=== PATIENT | female | born 1940 ===

== ENCOUNTER 2017-03-24 11:46 | Day surgery (SDC) | payer MEDICARE, OTHER ==
[2017-03-23 08:16] VITALS: BMI 44.6
[2017-03-24] MEDS ORDERED: HYDROmorphone 0.5 mg/0.5 ml ISec IVP PRN (13:07)
[2017-03-24] MEDS ORDERED: Lactated Ringer's 1,000 ML IV SCH (13:15)
[2017-03-24] MEDS ORDERED: Lidocaine 2% Jelly (Uro-Jet) ONE (13:20)
[2017-03-24] MEDS ORDERED: cefTRIAXone IV 1 gm in Dextros 50 ML IVPB ONE (13:20)
[2017-03-24] MEDS ORDERED: Lactated Ringer's 1,000 ML IV ONE (13:20)
[2017-03-24] MEDS ORDERED: Propofol 10 mg/ml Inj (20 ML) ONE (13:22)
--- NOTE | 2017-03-24 14:05 | OP ---
PROCEDURE DATE: 03/24/2017 PREOPERATIVE DIAGNOSES: Urinary incontinence, frequency, urgency. POSTOPERATIVE DIAGNOSES: Urinary incontinence, frequency, urgency and cystocele. PROCEDURES: Cystoscopy only and exam under anesthesia. SURGEON: Gonzalo Owens MD COMPLICATIONS: There were no complications. FINDINGS: Basically, the patient has a moderate cystocele. The bladder mucosa is relatively within normal limits. INDICATIONS: See history and physical for further details. A very pleasant lady here for the above testing. FINDINGS: ____ the patient had a cystocele. When I inserted the cystoscope, we drained out about 12 5 mL of urine with a slight odor. We sent it off for culture. No gross hematuria. Ureteral orifices are normal. The mucosa is relatively normal. Pictures were t aken and saved. There is some debris within the bladder. The cystocele is noted. No other pelvic o r rectal masses noted. DESCRIPTION OF PROCEDURE: After obtaining informed consent, the patient placed on the table, routine monitors placed, timeouts were called to confirm the patient and positioning. Cystoscope via the urethra. We emptied the bladder and we got about 125-150 mL of clear urine. Procedure continues. Cystoscope. The bladder was inspected carefully with 30 and 70 degree lenses. Ureteral orifices show clear efflux. There is a mild amount of debris. No bladder masses are seen. The patient tolerated the procedure well without complication. Pelvic exam shows a cystocele but otherwise unremarkable. Gonzalo Owens MD cc: [id number] TT: 03/24/2017 14:04:51 ok
--- NOTE | 2017-03-24 14:15 | HP ---
REASON FOR ADMISSION: Incontinence and frequency. HISTORY OF PRESENT ILLNESS A very pleasant lady, 75-year-old. She had back surgery. She said taylor craft that she had no problems with her voiding. (See below because I have discussed this with the patient.) She comes to me after being in a fpc with a lot of difficulty at the fpc and in a v sonny depressed sort of position. We waited. She was discharged from the fpc at this point. She was in I think [facility], but now she went home and she is here today for further diagnostic studies. I have al so had a chance to speak to her doctor, Dr. Castillo. PAST MEDICAL AND SURGICAL HISTORY: No history of an SC or CVA, but she had recent back surgery. GYNECOLOGIC HISTORY: Otherwise unremarkable from a urology standpoint. PHYSICAL EXAMINATION: GENERAL: Well-nourished female in no apparent distress. VITAL SIGNS: Within normal limits. ABDOMEN: Overall soft, nontender. No flank masses. PELVIC: Deferred ____ mention that she has a moderate cystocele. RECTAL: There are no rectal masses. LABORATORIES: See chart. DIAGNOSES: Frequency, urgency, incontinence. We discussed options. We are going to do a cystoscopy today. I tried discussing with the patient locations, etc., in fact doing it in the office. Shay flores, this was not amenable for the patient. PLAN: As follows: We are going to bring her to the operating room. We are going to do a cystoscopy and then further plans will follow. I discussed options with the patient. Gonzalo Owens MD cc: [phone] TT: 03/24/2017 14:14:38 tn
[2017-03-24 14:49] VITALS: RESP 14; TEMP 98.2; O2SAT 100
[2017-03-24 17:47] VITALS: BP 118/74; PULSE 69
== END 2017-03-24 16:25 | disposition home or self-care (01) ==
LOC: C.SDS 11:46
PROVIDERS: ATTEND Urology
DX: N39.41 Urge incontinence (principal); N81.10 Cystocele, unspecified
CPT/HCPCS: 52000; 82948; 87086; J0696; J7120

== ENCOUNTER 2018-02-23 01:32 | Inpatient (IN) | payer MEDICARE, OTHER ==
[2018-02-23 01:32] VITALS: BMI 44.6
[2018-02-23] MEDS ORDERED: Morphine 4 MG/ML VIAL ONE ×2 (01:49→03:07)
[2018-02-23] MEDS ORDERED: Sodium Chloride 0.9% 1,000 ML ONE (01:53)
[2018-02-23] MEDS ORDERED: ceFAZolin IV 1 gm in Dextrose 1 GM/50 ML BAG IVPB ONE (02:00)
[2018-02-23] MEDS ORDERED: Midazolam 2 MG/2 ML VIAL ONE (02:02)
[2018-02-23 02:06] LABS: BASO # 0.1 K/uL (0.0-0.2); BASO % 1.1 % (0.0-2.0); EOS # 0.4 K/uL (0.0-0.7); EOS % 3.6 % (0.0-4.0); HEMOGLOBIN 12.2 g/dL (11.0-16.0); LYMPH % 24.9 % (20.0-40.0); MEAN CELL VOLUME 82.8 fL (81.0-99.0); MEAN CORPUSCULAR HEMOGLOBIN 27.3 pg (27.0-31.0); MEAN CORPUSCULAR HGB CONC 32.9 g/dL (33.0-37.0); MEAN PLATELET VOLUME 8.9 fL (7.2-11.7); MONO # 0.8 K/uL (0.0-0.8); NEUT # 7.5 K/uL (1.8-7.0); NEUT % 63.4 % (50.0-75.0); RBC 4.47 Mil/uL (3.80-5.20); RED CELL DISTRIBUTION WIDTH 14.1 % (11.5-14.5); WHITE BLOOD COUNT 11.9 K/uL (4.8-10.8)
[2018-02-23] MEDS ORDERED: Midazolam 2 MG/2 ML VIAL IVP ONE ×2 (02:14→11:45)
[2018-02-23 02:15] LABS: INR 0.9; PROTHROMBIN TIME 10.2 SECONDS (9.7-12.2)
[2018-02-23] MEDS ORDERED: ceFAZolin 1 GM in Sodium Chloride 0.9% 100 ML IVPB ONE (02:15)
--- NOTE | 2018-02-23 02:16 | C.PDOC ---
History Of Present Illness 77 y/o female brought in by ambulance for evaluation of ankle injury s/p fall tonight. Patient states she slipped and fell, injuring the right ankle and sustaining a laceration. There was no head injury or LOC. Patient denies any chest pain, SOB, or dizziness prior to fall. No changes in sensation. PMD: Andrew Castillo Time Seen by Provider: 02/23/18 02:14 Chief Complaint (Nursing): Lower Extremity Problem/Injury History Per: Patient History/Exam Limitations: no limitations Onset/Duration Of Symptoms: Mins Current Symptoms Are (Timing): Still Present - Ankle/Foot Description Of Injury: Fell, Laceration Past Medical History Reviewed: Historical Data, Nursing Documentation, Vital Signs Vital Signs: Last Vital Signs Temp 97.7 F 02/23/18 01:41 Pulse 83 02/23/18 03:41 Resp 20 02/23/18 03:41 BP 151/69 H 02/23/18 03:41 Pulse Ox 98 02/23/18 05:41 - Medical History PMH: Anemia, Anxiety, Asthma, Back Problems, CHF, Diabetes, HTN, Peripheral Edema, Rheumatoid Arthritis Denies: Chronic Kidney Disease Surgical History: Back Surgery - [facility] Procedures CONTINUOUS INVASIVE MECHANICAL VENTILATION <96 CONSEC HRS (06/16/15) RELEASE LUMBAR SPINAL CORD, OPEN APPROACH (12/01/16) RT & LT HEART ANGIOCARD (06/16/15) RT/LEFT HEART CARD CATH (06/16/15) TRANSFUSE NONAUT RED BLOOD CELLS IN PERIPH VEIN, PERC (12/01/16) Family History: States: Unknown Family Hx - Social History Hx Tobacco Use: No Hx Alcohol Use: No Hx Substance Use: No - Immunization History Hx Tetanus Toxoid Vaccination: Yes Hx Influenza Vaccination: Yes Hx Pneumococcal Vaccination: Yes Review Of Systems Except As Marked, All Systems Reviewed And Found Negative. Cardiovascular: Negative for: Chest Pain Respiratory: Negative for: Shortness of Breath Musculoskeletal: Positive for: Foot Pain (right ankle pain) Skin: Positive for: Lesions (to ankle) Neurological: Negative for: Weakness, Numbness, Dizziness Physical Exam - Physical Exam Appears: Non-toxic, No Acute Distress Skin: Warm, Dry, No Rash Head: Atraumatic, Normacephalic Eye(s): bilateral: Normal Inspection, PERRL, EOMI Nose: Normal Oral Mucosa: Moist Neck: Normal ROM, No Midline Cervical Tenderness, Supple Chest: Symmetrical Cardiovascular: Rhythm Regular, No Murmur Respiratory: Normal Breath Sounds, No Accessory Muscle Use Extremity: Capillary Refill (< 2 sec), Deformity (to right ankle), Other (4.5 cm laceration to medial aspect of right ankle) Pulses: Left Dorsalis Pedis: Normal, Right Dorsalis Pedis: Normal Neurological/Psych: Oriented x3, Normal Speech, Normal Motor, Normal Sensation, No Other (focal deficits) ED Course And Treatment - Laboratory Results Result Diagrams: 02/23/18 02:00 02/23/18 02:00 ECG: Interpreted By Me, Viewed By Me ECG Rhythm: Sinus Rhythm ECG Interpretation: Normal, No Acute Changes Interpretation Of ECG: Sinus rhythm with PAC. Normal tracings. Rate From EC O2 Sat by Pulse Oximetry: 98 (RA) Pulse Ox Interpretation: Normal Medical Decision Making Medical Decision Making: Time: 01:52 Initial Plan: * Labs * EKG * X-ray right ankle * Chest x-ray * NSS IV fluids * Morphine 4 mg IV * Ancef 1 gm IVPB * Versed 2 mg IV 5:[address] Solorio for ortho consult Disposition Discussed With DrRyan: Brandt Laurent Doctor Will See Patient In The: Hospital Counseled Patient/Family Regarding: Diagnosis - Disposition Disposition: HOSPITALIZED Disposition Time: 05:36 Condition: STABLE Forms: [facility] (Maltese) - POA Present On Arrival: Falls Or Trauma Location Of Wound: Right ankle medially x7 cm. - Clinical Impression Clinical Impression: Open fracture of right ankle - Scribe Statement The provider has reviewed the documentation as recorded by the Scribe (Nicolette Weiner) Provider Attestation: All medical record entries made by the Scribe were at my direction and personally dictated by me. I have reviewed the chart and agree that the record accurately reflects my personal performance of the history, physical exam, medical decision making, and the department course for this patient. I have also personally directed, reviewed, and agree with the discharge instructions and disposition.
[2018-02-23 02:19] LABS: ALT/SGPT 17 U/L (9-52); AST/SGOT 30 U/L (14-36); BLOOD UREA NITROGEN 16 mg/dL (7-17); CALCIUM 9.1 mg/dl (8.6-10.4); GFR AFRICAN-AMERICAN > 60; GFR NON-AFRICAN AMERICAN > 60
[2018-02-23] MEDS ORDERED: Sodium Chloride 0.9% 1,000 ML IV ONE (02:27)
[2018-02-23] MEDS ORDERED: Tdap Vaccine 0.5 ml Vial (10-64 yrs) IM ONE ×2 (05:14→05:25)
[2018-02-23] MEDS ORDERED: Dextrose 50% SYRINGE Inj (50 ml) IV PRN (06:22)
[2018-02-23] MEDS ORDERED: Morphine 4 MG/ML VIAL IV PRN (06:22)
[2018-02-23] MEDS ORDERED: Glucagon Recombinant 1 mg Inj IM PRN (06:22)
[2018-02-23] MEDS ORDERED: Sodium Chloride 0.45% 1,000 ML IV ONE (06:24)
--- NOTE | 2018-02-23 06:26 | CP.PCM.HP ---
<DerekDaisy ClaudioRyan - Last Filed: 02/23/18 06:52> History of Present Illness - History of Present Illness History of Present Illness: HPI: 77 year old female with past medical history of HTN, aortic stenosis, DM, spinal stenosis presents to the ER s/p fall. Patient states she was getting out of the bathroom when she slipped and fell onto her ankle. She states she saw blood everywhere and use her life alert to call for help. Patient currently denies chest pain, shortness of breath, chills, abdominal pain, nausea , or vomiting. Patient states she recently had spinal surgery which has not helped her back pain and she states due to the surgery she is currently incontinent at night. PMD: Donte Past Medical History: HTN (pulmonary HTN); aortic stenosis; spinal stenosis; Chronic exertional dyspnea;urinary incontinence; DM Past Surgical History: spinal surgery 2017 Medications: patient does not know medications Allergies: NKDA Social History: lives alone (son lives in [place]); denies smoking, illicit drug use and alcohol Present on Admission - Present on Admission Any Indicators Present on Admission: No Review of Systems - Constitutional Constitutional: absent: Chills, Fever, Headache - Cardiovascular Cardiovascular: absent: Chest Pain, Dyspnea, Leg Edema, Palpitations - Gastrointestinal Gastrointestinal: absent: Constipation, Diarrhea, Nausea, Vomiting - Genitourinary Genitourinary: Urinary Incontinence. absent: Dysuria - Musculoskeletal Musculoskeletal: Other (leg pain s/p fall) - Neurological Neurological: absent: Dizziness, Numbness, Headaches Past Patient History - Infectious Disease Hx of Infectious Diseases: None - Past Medical History & Family History Past Medical History?: Yes - Past Social History Smoking Status: Never Smoked - CARDIAC Hx Congestive Heart Failure: Yes Hx Hypertension: Yes Hx Peripheral Edema: Yes - PULMONARY Hx Asthma: Yes - NEUROLOGICAL Hx Neurological Disorder: Yes Other/Comment: DIABETIC NEUROPATHY, INTRERVERTREBRAL DISC DISEASE - HEENT Hx HEENT Problems: No - RENAL Hx Chronic Kidney Disease: No - ENDOCRINE/METABOLIC Hx Endocrine Disorders: Yes Hx Diabetes Mellitus Type 2: Yes - HEMATOLOGICAL/ONCOLOGICAL Hx Anemia: Yes - INTEGUMENTARY Hx Dermatological Problems: No - MUSCULOSKELETAL/RHEUMATOLOGICAL Hx Rheumatoid Arthritis: Yes - GASTROINTESTINAL Hx Gastrointestinal Disorders: No - GENITOURINARY/GYNECOLOGICAL Hx Genitourinary Disorders: Yes Hx Hematuria: Yes - PSYCHIATRIC Hx Anxiety: Yes Hx Substance Use: No - SURGICAL HISTORY Hx Surgeries: Yes Hx Cardiac Catheterization: Yes Other/Comment: SPINAL SURGERY(lumbar) - ANESTHESIA Hx Anesthesia: Yes Hx Anesthesia Reactions: No Meds Allergies/Adverse Reactions: Allergies Allergy/AdvReac Type Severity Reaction Status Date / Time No Known Allergies Allergy Verified 01/07/16 09:41 Physical Exam - Constitutional Appears: In Acute Distress - Head Exam Head Exam: ATRAUMATIC, NORMAL INSPECTION - Eye Exam Eye Exam: EOMI, Normal appearance - ENT Exam ENT Exam: Mucous Membranes Moist - Respiratory Exam Respiratory Exam: Clear to Auscultation Bilateral, NORMAL BREATHING PATTERN - Cardiovascular Exam Cardiovascular Exam: REGULAR RHYTHM, RRR, +S1, +S2, Systolic Murmur. absent: JVD - GI/Abdominal Exam GI & Abdominal Exam: Normal Bowel Sounds, Soft. absent: Tenderness Additional comments: obese - Extremities Exam Additional comments: Right LE cast - Neurological Exam Neurological exam: Alert, Oriented x3 Results - Vital Signs Recent Vital Signs: Last Vital Signs Temp 97.6 F 02/23/18 06:00 Pulse 90 02/23/18 06:00 Resp 16 02/23/18 06:00 BP 155/69 H 02/23/18 06:00 Pulse Ox 98 02/23/18 06:00 - Labs Result Diagrams: 02/23/18 02:00 02/23/18 02:00 Labs: Laboratory Results - last 24 hr 02/23/18 02/23/18 02/23/18 01:42 01:52 02:00 WBC 11.9 H RBC 4.47 Hgb 12.2 D Hct 37.0 MCV 82.8 MCH 27.3 MCHC 32.9 L RDW 14.1 Plt Count 357 MPV 8.9 Neut % (Auto) 63.4 Lymph % (Auto) 24.9 Haralson % (Auto) 7.0 Eos % (Auto) 3.6 Baso % (Auto) 1.1 Neut # (Auto) 7.5 H Lymph # (Auto) 3.0 Haralson # (Auto) 0.8 Eos # (Auto) 0.4 Baso # (Auto) 0.1 PT 10.2 INR 0.9 APTT 32 Sodium Potassium Chloride Carbon Dioxide Anion Gap BUN Creatinine Est GFR ( Amer) Est GFR (Non-Af Amer) POC Glucose (mg/dL) 132 H Random Glucose Calcium Total Bilirubin AST ALT Alkaline Phosphatase Total Protein Albumin Globulin Albumin/Globulin Ratio Blood Type Antibody Screen 02/23/18 02/23/18 02:00 02:00 WBC RBC Hgb Hct MCV MCH MCHC RDW Plt Count MPV Neut % (Auto) Lymph % (Auto) Haralson % (Auto) Eos % (Auto) Baso % (Auto) Neut # (Auto) Lymph # (Auto) Har[place]on # (Auto) Eos # (Auto) Baso # (Auto) PT INR APTT Sodium 141 Potassium 4.6 Chloride 105 Carbon Dioxide 24 Anion Gap 17 BUN 16 Creatinine 0.6 L Est GFR ( Amer) > 60 Est GFR (Non-Af Amer) > 60 POC Glucose (mg/dL) Random Glucose 126 H Calcium 9.1 Total Bilirubin 0.8 AST 30 ALT 17 Alkaline Phosphatase 89 Total Protein 7.8 Albumin 4.0 Globulin 3.8 Albumin/Globulin Ratio 1.0 Blood Type O POSITIVE Antibody Screen Negative Assessment & Plan - Assessment and Plan (Free Text) Assessment: 1.) Right Ankle open fracture - Ortho Consult: Dr. Solorio --> help appreciated - Patient needs acute surgery - due to patient's chronic medical conditions such as exertional dyspnea, aortic stenosis and pulmonary HTN patient is a moderate to high risk. - NPO - Morphine 1mg q3h prn - 1/2 NS @70cc/hr - Cefazolin 1gm given in the ER - f/u official reports: LE CT - f/u official report Ankle Xray - Chest Xray f/u official report 2.) History of DM - ISS - Accuchecks - Hypoglycemia protocol - f/u A1c 3.) Aortic Stenosis - ECHO (12/02/2016): left ventricular ejection fraction within the normal range. Moderate valvular aortic stenosis. Mild to moderate tricuspid regurgitation. - f/u ECHO - Cardio Consult: Dr. Wu --> help appreciated - Spoke with Dr. Wu and stated repeat ECHO can be completed as routine 4.) HTN - Confirm home medications - Monitor Case discussed with Dr. Anastasiia Reed PGY-1 <Brandt Laurent P - Last Filed: 02/26/18 06:33> Results - Vital Signs Recent Vital Signs: Last Vital Signs Temp 98.1 F 02/26/18 04:20 Pulse 84 02/26/18 04:20 Resp 20 02/26/18 04:20 BP 148/79 02/26/18 04:20 Pulse Ox 95 02/26/18 04:20 - Labs Result Diagrams: 02/25/18 07:10 02/25/18 07:10 Labs: Laboratory Results - last 24 hr 02/25/18 02/25/18 02/25/18 06:34 07:10 07:10 WBC 10.5 RBC 3.54 L Hgb 9.9 L Hct 29.1 L MCV 82.2 MCH 28.0 MCHC 34.1 RDW 13.7 Plt Count 236 MPV 8.7 Neut % (Auto) 72.6 Lymph % (Auto) 14.4 L Haralson % (Auto) 11.8 H Eos % (Auto) 0.6 Baso % (Auto) 0.6 Neut # (Auto) 7.6 H Lymph # (Auto) 1.5 Haralson # (Auto) 1.2 H Eos # (Auto) 0.1 Baso # (Auto) 0.1 Sodium 138 Potassium 3.2 L Chloride 103 Carbon Dioxide 28 Anion Gap 11 BUN 9 Creatinine 0.7 Est GFR ( Amer) > 60 Est GFR (Non-Af Amer) > 60 POC Glucose (mg/dL) 127 H Random Glucose 132 H Calcium 8.3 L Phosphorus 3.2 Magnesium 1.9 Total Bilirubin 1.7 H AST 24 ALT 15 Alkaline Phosphatase 76 Total Protein 6.4 Albumin 3.1 L Globulin 3.3 Albumin/Globulin Ratio 0.9 L Carcinoembryonic Ag 0.6 02/25/18 02/25/18 02/25/18 11:15 16:25 21:37 WBC RBC Hgb Hct MCV MCH MCHC RDW Plt Count MPV Neut % (Auto) Lymph % (Auto) [place]on % (Auto) Eos % (Auto) Baso % (Auto) Neut # (Auto) Lymph # (Auto) Haralson # (Auto) Eos # (Auto) Baso # (Auto) Sodium Potassium Chloride Carbon Dioxide Anion Gap BUN Creatinine Est GFR ( Amer) Est GFR (Non-Af Amer) POC Glucose (mg/dL) 152 H 144 H 158 H Random Glucose Calcium Phosphorus Magnesium Total Bilirubin AST ALT Alkaline Phosphatase Total Protein Albumin Globulin Albumin/Globulin Ratio Carcinoembryonic Ag Attending/Attestation - Attestation I have personally seen and examined this patient.: Yes I have fully participated in the care of the patient.: Yes I have reviewed all pertinent clinical information: Yes Notes (Text): See note on the same day
--- NOTE | 2018-02-23 07:15 | CP.PCM.PN ---
Subjective - Date & Time of Evaluation Date of Evaluation: 02/23/18 Time of Evaluation: 07:06 - Subjective Subjective: Assessment * Open ankle fracture, with air in soft tissues, reduced in ER, no neurovascular deficit, due to mechanical fall * H/o valve area 1.1cmsq, 11/2016 echo, with pulm htn, clinically exertional dyspnea * H/o DM on OHA * Chronic low back pain with surg last yr, with clinical symptoms of spinal stenosis in lumbar region * EKG 1deg HB, with prolonged QTc. Plan * Moderate to high risk for perioperative CV event with GA, spinal may be preferred, but prolonged surg, large volume shifts may cause sudden changes of intravascular lowering pressure or CFH * Echo if possible prior to surg to know valvular status * Cardiology consult, Dr. Wu will be informed * NPO * Orthopedic consult * IV abx, if surg delayed will need ID consult will need to be treated as OM * hold anticoagulation due to possible surg * See orders for detail. Objective - Vital Signs/Intake and Output Vital Signs (last 24 hours): Temp Pulse Resp BP Pulse Ox 97.6 F 90 16 155/69 H 98 02/23/18 06:00 02/23/18 06:00 02/23/18 06:00 02/23/18 06:00 02/23/18 06:00 - Medications Medications: Current Medications Dextrose (Dextrose 50% Inj) 0 ml IV STAT PRN; Protocol PRN Reason: Hypoglycemia Protocol Dextrose (Glutose 15) 0 gm PO ONCE PRN; Protocol PRN Reason: Hypoglycemia Protocol Glucagon (Glucagen Diagnostic Kit) 0 mg IM STAT PRN; Protocol PRN Reason: Hypoglycemia Protocol Dextrose (Dextrose 5% In Water 1000 Ml) 1,000 mls @ 0 mls/hr IV .Q0M PRN; Protocol; Per Protocol PRN Reason: Hypoglycemia Protocol Sodium Chloride (Sodium Chloride 0.45%) 1,000 mls @ 70 mls/hr IV .[id number] ONE Stop: 02/23/18 20:41 Insulin Human Regular (Novolin R) 0 unit SC ACHS GABRIELA PRN Reason: Protocol Morphine Sulfate (Morphine) 1 mg IV Q3 PRN PRN Reason: Pain, moderate (4-7) Ondansetron HCl (Zofran Inj) 4 mg IVP Q6H PRN PRN Reason: Nausea/Vomiting - Labs Labs: 02/23/18 02:00 02/23/18 02:00 PT 10.2 SECONDS (9.7-12.2) 02/23/18 01:52 INR 0.9 02/23/18 01:52 APTT 32 SECONDS (21-34) 02/23/18 01:52
[2018-02-23] MEDS: (Novolin R) Insulin Human Regular 100 units/ml vial SC SCH ×4 (08:40→22:41)
[2018-02-23] MEDS: Piperacill/Tazo 3.375gm in Dex 3.375 GM/50 ML BAG IVPB SCH ×3 (09:56→23:15)
--- NOTE | 2018-02-23 10:05 | CP.PCM.CON ---
History of Present Illness - History of Present Illness History of Present Illness: 77 y/o female brought in by ambulance for evaluation of ankle injury s/p fall tonight. Patient states she slipped and fell, injuring the right ankle and sustaining a laceration. There was no head injury or LOC. Patient denies any chest pain, SOB, or dizziness prior to fall. No changes in sensation. \ started vanco zosyn empirically For OR am - Medical History PMH: Anemia, Anxiety, Asthma, Back Problems, CHF, Diabetes, HTN, Peripheral Edema, Rheumatoid Arthritis Denies: Chronic Kidney Disease Surgical History: Back Surgery - [facility] Procedures CONTINUOUS INVASIVE MECHANICAL VENTILATION <96 CONSEC HRS (06/16/15) RELEASE LUMBAR SPINAL CORD, OPEN APPROACH (12/01/16) RT & LT HEART ANGIOCARD (06/16/15) RT/LEFT HEART CARD CATH (06/16/15) TRANSFUSE NONAUT RED BLOOD CELLS IN PERIPH VEIN, PERC (12/01/16) Review of Systems - Review of Systems All systems: reviewed and no additional remarkable complaints except - Constitutional Constitutional: As Per HPI - EENT Eyes: absent: As Per HPI, Blind Spots, Blurred Vision, Change in Vision, Decreased Night Vision, Diplopia, Discharge, Dry Eye, Exophthalmos, Floaters, Irritation, Itchy Eyes, Loss of Peripheral Vision, Pain, Photophobia, Requires Corrective Lenses, Sees Flashes, Spots in Vision, Tunnel Vision, Other Visual Disturbances, Loss of Vision, Other Ears: absent: As Per HPI, Decreased Hearing, Ear Discharge, Ear Pain, Tinnitus, Abnormal Hearing, Disequilibrium, Dizziness, Other Nose/Mouth/Throat: absent: As Per HPI, Epistaxis, Nasal Congestion, Nasal Discharge, Nasal Obstruction, Nasal Trauma, Nose Pain, Post Nasal Drip, Sinus Pain, Sinus Pressure, Bleeding Gums, Change in Voice, Dental Pain, Dry Mouth, Dysphagia, Halitosis, Hoarsness, Lip Swelling, Mouth Lesions, Mouth Pain, Odynophagia, Sore Throat, Throat Swelling, Tongue Swelling, Facial Pain, Neck Pain, Neck Mass, Other - Breasts Breasts: absent: As Per HPI, Change in Shape, Mass, Pain, Nipple Discharge, Nipple Inversion, Skin Changes, Swelling, Other - Cardiovascular Cardiovascular: absent: As Per HPI, Acrocyanosis, Chest Pain, Chest Pain at Rest , Chest Pain with Activity, Claudication, Diaphoresis, Dyspnea, Dyspnea on Exertion, Edema, Irregular Heart Rhythm, Pain Radiating to Arm/Neck/Jaw, Leg Edema, Leg Ulcers, Lightheadedness, Orthopnea, Palpitations, Paroxysmal Nocturnal Dyspnea, Pedal Edema, Radiating Pain, Rapid Heart Rate, Slow Heart Rate, Syncope, Other - Respiratory Respiratory: absent: As Per HPI, Cough, Dyspnea, Hemoptysis, Dyspnea on Exertion , Wheezing, Snoring, Stridor, Pain on Inspiration, Chest Congestion, Excessive Mucous Production, Change in Mucous Color, Pain with Coughing, Other - Gastrointestinal Gastrointestinal: absent: As Per HPI, Abdominal Pain, Belching, Bloating, Change in Bowel Habits, Change in Stool Character, Coffee Ground Emesis, Constipation, Cramping, Diarrhea, Dyspepsia, Dysphagia, Early Satiety, Excessive Flatus, Fecal Incontinence, Heartburn, Hematemesis, Hematochezia, Loose Stools, Melena, Nausea, Odynophagia, Temesmus, Vomiting, Other - Genitourinary Genitourinary: absent: As Per HPI, Change in Urinary Stream, Difficulty Urinating, Dysuria, Flank Pain, Hematuria, Pyuria, Nocturia, Urinary Incontinence, Urinary Frequency, Urinary Hesitance, Urinary Urgency, Voiding Freq/Small Amts, Freq UTI, Hx Renal/Bladder Calculi, Hx /Renal Surgery, Bladder Distension, Other - Reproductive: Female Reproductive:Female: absent: As Per HPI, Amenorrhea, Amenorrhea/ Control, Currently Menstual, Cycle <21 Days, Cycle >35 Days, Cycle Variable, Menses 1-7 Days, Menses >/= 8 Days, Menses Variable, Cycle > 4 Weeks Between, No Menses for 6 Months, Heavy Menses, Light Menses, Normal Menses, Spotting Between Cycles , S/P Hysterectomy, Menopausal, Post Menopausal, Premenarche, Abnormal Vaginal Bleeding, Dysmenorrhea, Dyspareunia, Genital Lesions, Genital Pruritis, Pelvic Pain, Prolapse Symptoms, Sexual Dysfunction, Vaginal Discharge, Vaginal Dryness , Vaginal Odor, Vaginal Pruritis, Other - Menstruation Menstruation: absent: As Per HPI, Amenorrhea, Amenorrhea/ Control, Currently Menstual, Cycle <21 Days, Cycle >35 Days, Cycle Variable, Menses 1-7 Days, Menses >/= 8 Days, Menses Variable, Cycle > 4 Weeks Between, No Menses for 6 Months, Heavy Menses, Light Menses, Normal Menses, Spotting Between Cycles , S/P Hysterectomy, Menopausal, Post Menopausal, Premenarche, Abnormal Vaginal Bleeding, Dysmenorrhea, Other - Musculoskeletal Musculoskeletal: As Per HPI - Integumentary Integumentary: As Per HPI - Neurological Neurological: absent: As Per HPI, Abnormal Gait, Abnormal Hearing, Abnormal Movements, Abnormal Speech, Behavioral Changes, Burning Sensations, Confusion, Convulsions, Disequilibrium, Dizziness, Numbness, Focal Weakness, Frequent Falls , Headaches, Lack of Coordination, Loss of Vision, Memory Loss, Paresthesias, Radicular Pain, Restless Legs, Sensory Deficit, Syncope, Tingling, Tremor, Vertigo, Weakness, Other Visual Disturbances, Other - Psychiatric Psychiatric: absent: As Per HPI, Abnormal Sleep Pattern, Anhedonia, Anxiety, Auditory Hallucinations, Behavioral Changes, Change in Appetite, Change in Libido, Confusion, Depression, Difficulty Concentrating, Hallucinations, Homicidal Ideation, Hopelessness, Irritability, Memory Loss, Mood Swings, Panic Attacks, Paranoia, Suicidal Ideation, Visual Hallucinations, Tactile Hallucinations, Other - Endocrine Endocrine: absent: As Per HPI, Change in Body Appearance, Change in Libido, Cold Intolorance, Deepening of Voice, Excessive Sweating, Fatigue, Flushing, Heat Intolorance, Increase in Ring/Shoe/Hat Size, Palpitations, Polydipsia, Polyphagia, Polyuria, Other - Hematologic/Lymphatic Hematologic: absent: As Per HPI, Easy Bleeding, Easy Bruising, Lymphadenopathy, Other Past Patient History - Infectious Disease Hx of Infectious Diseases: None - Past Medical History & Family History Past Medical History?: Yes - Past Social History Smoking Status: Never Smoked - CARDIAC Hx Congestive Heart Failure: Yes Hx Hypertension: Yes Hx Peripheral Edema: Yes - PULMONARY Hx Asthma: Yes - NEUROLOGICAL Hx Neurological Disorder: Yes Other/Comment: DIABETIC NEUROPATHY, INTRERVERTREBRAL DISC DISEASE - HEENT Hx HEENT Problems: No - RENAL Hx Chronic Kidney Disease: No - ENDOCRINE/METABOLIC Hx Endocrine Disorders: Yes Hx Diabetes Mellitus Type 2: Yes - HEMATOLOGICAL/ONCOLOGICAL Hx Anemia: Yes - INTEGUMENTARY Hx Dermatological Problems: No - MUSCULOSKELETAL/RHEUMATOLOGICAL Hx Rheumatoid Arthritis: Yes - GASTROINTESTINAL Hx Gastrointestinal Disorders: No - GENITOURINARY/GYNECOLOGICAL Hx Genitourinary Disorders: Yes Hx Hematuria: Yes - PSYCHIATRIC Hx Anxiety: Yes Hx Substance Use: No - SURGICAL HISTORY Hx Surgeries: Yes Hx Cardiac Catheterization: Yes Other/Comment: SPINAL SURGERY(lumbar) - ANESTHESIA Hx Anesthesia: Yes Hx Anesthesia Reactions: No Meds Allergies/Adverse Reactions: Allergies Allergy/AdvReac Type Severity Reaction Status Date / Time No Known Allergies Allergy Verified 01/07/16 09:41 - Medications Medications: Current Medications Albuterol/Ipratropium (Duoneb 3 Mg/0.5 Mg (3 Ml) Ud) 3 ml INH RQ6 PRN PRN Reason: Shortness of Breath Dextrose (Dextrose 50% Inj) 0 ml IV STAT PRN; Protocol PRN Reason: Hypoglycemia Protocol Dextrose (Glutose 15) 0 gm PO ONCE PRN; Protocol PRN Reason: Hypoglycemia Protocol Docusate Sodium (Colace) 100 mg PO BID [facility] Glucagon (Glucagen Diagnostic Kit) 0 mg IM STAT PRN; Protocol PRN Reason: Hypoglycemia Protocol Heparin Sodium (Porcine) (Heparin) 5,000 units SC ONCE ONE Stop: 02/23/18 17:01 Dextrose (Dextrose 5% In Water 1000 Ml) 1,000 mls @ 0 mls/hr IV .Q0M PRN; Protocol; Per Protocol PRN Reason: Hypoglycemia Protocol Sodium Chloride (Sodium Chloride 0.45%) 1,000 mls @ 70 mls/hr IV .[id number] ONE Stop: 02/23/18 20:41 Last Admin: 02/23/18 08:30 Dose: 70 mls/hr Vancomycin/Sodium Chloride (Vancomycin 1 Gm/Ns 200 Ml) 1 gm in 200 mls @ 133.333 mls/hr IVPB Q12H [facility] PRN Reason: Protocol Stop: 02/28/18 11:01 Piperacillin Sod/Tazobactam Sod (Zosyn 3.375 Gm Iv Premix) 3.375 gm in 50 mls @ 100 mls/hr IVPB Q6H [facility] PRN Reason: Protocol Last Admin: 02/23/18 09:56 Dose: 100 mls/hr Insulin Human Regular (Novolin R) 0 unit SC ACHS [facility] PRN Reason: Protocol Last Admin: 02/23/18 08:40 Dose: Not Given Losartan Potassium (Cozaar) 50 mg PO Q12H [facility] Morphine Sulfate (Morphine) 2 mg IVP Q4 PRN PRN Reason: Pain, severe (8-10) Morphine Sulfate (Morphine) 1 mg IVP Q4 PRN PRN Reason: Pain, moderate (4-7) Ondansetron HCl (Zofran Inj) 4 mg IVP Q6H PRN PRN Reason: Nausea/Vomiting Pantoprazole Sodium (Protonix Ec Tab) 40 mg PO DAILY [facility] Pregabalin (Lyrica) 25 mg PO HS [facility] Saccharomyces Boulardii (Florastor) 250 mg PO BID [facility] Physical Exam - Constitutional Appears: Non-toxic, Chronically Ill - Head Exam Head Exam: NORMOCEPHALIC - Eye Exam Eye Exam: PERRL. absent: Scleral icterus - ENT Exam ENT Exam: Mucous Membranes Dry, Normal External Ear Exam - Neck Exam Neck exam: Negative for: Lymphadenopathy - Respiratory Exam Respiratory Exam: Decreased Breath Sounds, Clear to Auscultation Bilateral - Cardiovascular Exam Cardiovascular Exam: REGULAR RHYTHM, +S1, +S2 - GI/Abdominal Exam GI & Abdominal Exam: Diminished Bowel Sounds, Soft. absent: Tenderness - Rectal Exam Rectal Exam: Deferred - Exam Exam: NORMAL INSPECTION - Extremities Exam Extremities exam: Positive for: pedal edema, tenderness, pedal pulses present. Negative for: calf tenderness Additional comments: comminuted fx right ankle - Back Exam Back exam: absent: CVA tenderness (L), CVA tenderness (R) - Neurological Exam Neurological exam: Alert, CN II-XII Intact, Oriented x3, Reflexes Normal - Psychiatric Exam Psychiatric exam: Normal Mood - Skin Skin Exam: Dry Results - Vital Signs Recent Vital Signs: Last Vital Signs Temp 97.3 F L 02/23/18 08:01 Pulse 84 02/23/18 08:01 Resp 18 02/23/18 08:01 BP 162/81 H 02/23/18 08:01 Pulse Ox 99 02/23/18 08:01 - Labs Result Diagrams: 02/23/18 02:00 02/23/18 02:00 Labs: Laboratory Results - last 24 hr 02/23/18 02/23/18 02/23/18 01:42 01:52 02:00 WBC 11.9 H RBC 4.47 Hgb 12.2 D Hct 37.0 MCV 82.8 MCH 27.3 MCHC 32.9 L RDW 14.1 Plt Count 357 MPV 8.9 Neut % (Auto) 63.4 Lymph % (Auto) 24.9 [place] % (Auto) 7.0 Eos % (Auto) 3.6 Baso % (Auto) 1.1 Neut # (Auto) 7.5 H Lymph # (Auto) 3.0 [place] # (Auto) 0.8 Eos # (Auto) 0.4 Baso # (Auto) 0.1 PT 10.2 INR 0.9 APTT 32 Sodium Potassium Chloride Carbon Dioxide Anion Gap BUN Creatinine Est GFR ( Amer) Est GFR (Non-Af Amer) POC Glucose (mg/dL) 132 H Random Glucose Calcium Total Bilirubin AST ALT Alkaline Phosphatase Total Protein Albumin Globulin Albumin/Globulin Ratio Blood Type Antibody Screen 02/23/18 02/23/18 02/23/18 02:00 02:00 08:32 WBC RBC Hgb Hct MCV MCH MCHC RDW Plt Count MPV Neut % (Auto) Lymph % (Auto) [place] % (Auto) Eos % (Auto) Baso % (Auto) Neut # (Auto) Lymph # (Auto) [place] # (Auto) Eos # (Auto) Baso # (Auto) PT INR APTT Sodium 141 Potassium 4.6 Chloride 105 Carbon Dioxide 24 Anion Gap 17 BUN 16 Creatinine 0.6 L Est GFR ( Amer) > 60 Est GFR (Non-Af Amer) > 60 POC Glucose (mg/dL) 110 Random Glucose 126 H Calcium 9.1 Total Bilirubin 0.8 AST 30 ALT 17 Alkaline Phosphatase 89 Total Protein 7.8 Albumin 4.0 Globulin 3.8 Albumin/Globulin Ratio 1.0 Blood Type O POSITIVE Antibody Screen Negative Assessment & Plan (1) Open fracture of right ankle Status: Acute (2) Acute left lumbar radiculopathy Status: Acute (3) Acute lumbar radiculopathy Status: Acute (4) Ambulatory dysfunction Status: Acute (5) Anemia Status: Acute (6) Ankle pain Status: Acute - Assessment and Plan (Free Text) Assessment: cont iv rx perioperatively await or cultures
[2018-02-23] MEDS: Saccharomyces Boulardi 250 mg Cap PO SCH ×2 (10:13→18:30)
[2018-02-23] MEDS: Pantoprazole 40 mg EC Tab PO SCH (10:13)
--- NOTE | 2018-02-23 10:20 | CP.PCM.CON ---
<Yaron Lewis - Last Filed: 02/23/18 16:11> History of Present Illness - History of Present Illness History of Present Illness: PGY2 Cardiology Consult Note for Dr. Wu 77 year old female with past medical history of HTN, aortic stenosis, DM, spinal stenosis presents to the ER s/p fall. Patient states she was getting out of the bathroom when she slipped and fell onto her ankle. She states she saw blood everywhere and use her life alert to call for help. Patient currently denies chest pain, shortness of breath, chills, abdominal pain, nausea , or vomiting. Patient states she recently had spinal surgery which has not helped her back pain and she states due to the surgery she is currently incontinent at night. Patient was seen and examined at bedside this AM. She is s/p closed reduction with podiatry today. Due for additional surgery tomorrow 02/24. Pain is well controlled. Patient denies chest pain, SOB, or edema. 12-point review of systems is otherwise negative without any additional acute complaints. PMD: Don[place] Past Medical History: HTN (pulmonary HTN); aortic stenosis; spinal stenosis; Chronic exertional dyspnea;urinary incontinence; DM Past Surgical History: spinal surgery 2017 Medications: patient does not know medications Allergies: NKDA Social History: lives alone (son lives in [place]); denies smoking, illicit drug use and alcohol Review of Systems - Review of Systems All systems: reviewed and no additional remarkable complaints except (as stated in HPI) Past Patient History - Infectious Disease Hx of Infectious Diseases: None - Past Medical History & Family History Past Medical History?: Yes - Past Social History Smoking Status: Never Smoked - CARDIAC Hx Congestive Heart Failure: Yes Hx Hypertension: Yes Hx Peripheral Edema: Yes - PULMONARY Hx Asthma: Yes - NEUROLOGICAL Hx Neurological Disorder: Yes Other/Comment: DIABETIC NEUROPATHY, INTRERVERTREBRAL DISC DISEASE - HEENT Hx HEENT Problems: No - RENAL Hx Chronic Kidney Disease: No - ENDOCRINE/METABOLIC Hx Endocrine Disorders: Yes Hx Diabetes Mellitus Type 2: Yes - HEMATOLOGICAL/ONCOLOGICAL Hx Anemia: Yes - INTEGUMENTARY Hx Dermatological Problems: No - MUSCULOSKELETAL/RHEUMATOLOGICAL Hx Rheumatoid Arthritis: Yes - GASTROINTESTINAL Hx Gastrointestinal Disorders: No - GENITOURINARY/GYNECOLOGICAL Hx Genitourinary Disorders: Yes Hx Hematuria: Yes - PSYCHIATRIC Hx Anxiety: Yes Hx Substance Use: No - SURGICAL HISTORY Hx Surgeries: Yes Hx Cardiac Catheterization: Yes Other/Comment: SPINAL SURGERY(lumbar) - ANESTHESIA Hx Anesthesia: Yes Hx Anesthesia Reactions: No Meds Allergies/Adverse Reactions: Allergies Allergy/AdvReac Type Severity Reaction Status Date / Time No Known Allergies Allergy Verified 01/07/16 09:41 - Medications Medications: Current Medications Albuterol/Ipratropium (Duoneb 3 Mg/0.5 Mg (3 Ml) Ud) 3 ml INH RQ6 PRN PRN Reason: Shortness of Breath Dextrose (Dextrose 50% Inj) 0 ml IV STAT PRN; Protocol PRN Reason: Hypoglycemia Protocol Dextrose (Glutose 15) 0 gm PO ONCE PRN; Protocol PRN Reason: Hypoglycemia Protocol Docusate Sodium (Colace) 100 mg PO BID [facility] Last Admin: 02/23/18 10:13 Dose: 100 mg Glucagon (Glucagen Diagnostic Kit) 0 mg IM STAT PRN; Protocol PRN Reason: Hypoglycemia Protocol Heparin Sodium (Porcine) (Heparin) 5,000 units SC ONCE ONE Stop: 02/23/18 17:01 Dextrose (Dextrose 5% In Water 1000 Ml) 1,000 mls @ 0 mls/hr IV .Q0M PRN; Protocol; Per Protocol PRN Reason: Hypoglycemia Protocol Sodium Chloride (Sodium Chloride 0.45%) 1,000 mls @ 70 mls/hr IV .[id number] ONE Stop: 02/23/18 20:41 Last Admin: 02/23/18 08:30 Dose: 70 mls/hr Vancomycin/Sodium Chloride (Vancomycin 1 Gm/Ns 200 Ml) 1 gm in 200 mls @ 133.333 mls/hr IVPB Q12H [facility] PRN Reason: Protocol Stop: 02/28/18 11:01 Piperacillin Sod/Tazobactam Sod (Zosyn 3.375 Gm Iv Premix) 3.375 gm in 50 mls @ 100 mls/hr IVPB Q6H [facility] PRN Reason: Protocol Last Admin: 02/23/18 09:56 Dose: 100 mls/hr Insulin Human Regular (Novolin R) 0 unit SC ACHS [facility] PRN Reason: Protocol Last Admin: 02/23/18 08:40 Dose: Not Given Losartan Potassium (Cozaar) 50 mg PO Q12H [facility] Last Admin: 02/23/18 10:13 Dose: 50 mg Morphine Sulfate (Morphine) 2 mg IVP Q4 PRN PRN Reason: Pain, severe (8-10) Morphine Sulfate (Morphine) 1 mg IVP Q4 PRN PRN Reason: Pain, moderate (4-7) Ondansetron HCl (Zofran Inj) 4 mg IVP Q6H PRN PRN Reason: Nausea/Vomiting Pantoprazole Sodium (Protonix Ec Tab) 40 mg PO DAILY [facility] Last Admin: 02/23/18 10:13 Dose: 40 mg Pregabalin (Lyrica) 25 mg PO [facility] Saccharomyces Boulardii (Florastor) 250 mg PO BID [facility] Last Admin: 02/23/18 10:13 Dose: 250 mg Physical Exam - Additional Findings Additional findings: - Constitutional Appears: In Acute Distress - Head Exam Head Exam: ATRAUMATIC, NORMAL INSPECTION - Eye Exam Eye Exam: EOMI, Normal appearance - ENT Exam ENT Exam: Mucous Membranes Moist - Respiratory Exam Respiratory Exam: Clear to Auscultation Bilateral, NORMAL BREATHING PATTERN. absent: Rales, Rhonchi - Cardiovascular Exam Cardiovascular Exam: REGULAR RHYTHM, RRR, +S1, +S2, Systolic Murmur. absent: JVD - GI/Abdominal Exam GI & Abdominal Exam: Normal Bowel Sounds, Soft. absent: Tenderness - Extremities Exam Additional comments: Right LE cast, pedal pulses b/l - Neurological Exam Neurological exam: Alert, Oriented x3 Results - Vital Signs Recent Vital Signs: Last Vital Signs Temp 97.3 F L 02/23/18 08:01 Pulse 86 02/23/18 10:09 Resp 18 02/23/18 08:01 BP 149/78 02/23/18 10:09 Pulse Ox 99 02/23/18 08:01 - Labs Result Diagrams: 02/23/18 02:00 02/23/18 02:00 Labs: Laboratory Results - last 24 hr 02/23/18 02/23/18 02/23/18 01:42 01:52 02:00 WBC 11.9 H RBC 4.47 Hgb 12.2 D Hct 37.0 MCV 82.8 MCH 27.3 MCHC 32.9 L RDW 14.1 Plt Count 357 MPV 8.9 Neut % (Auto) 63.4 Lymph % (Auto) 24.9 [place] % (Auto) 7.0 Eos % (Auto) 3.6 Baso % (Auto) 1.1 Neut # (Auto) 7.5 H Lymph # (Auto) 3.0 [place] # (Auto) 0.8 Eos # (Auto) 0.4 Baso # (Auto) 0.1 PT 10.2 INR 0.9 APTT 32 Sodium Potassium Chloride Carbon Dioxide Anion Gap BUN Creatinine Est GFR ( Amer) Est GFR (Non-Af Amer) POC Glucose (mg/dL) 132 H Random Glucose Calcium Total Bilirubin AST ALT Alkaline Phosphatase Total Protein Albumin Globulin Albumin/Globulin Ratio Blood Type Antibody Screen 02/23/18 02/23/18 02/23/18 02:00 02:00 08:32 WBC RBC Hgb Hct MCV MCH MCHC RDW Plt Count MPV Neut % (Auto) Lymph % (Auto) [place] % (Auto) Eos % (Auto) Baso % (Auto) Neut # (Auto) Lymph # (Auto) [place] # (Auto) Eos # (Auto) Baso # (Auto) PT INR APTT Sodium 141 Potassium 4.6 Chloride 105 Carbon Dioxide 24 Anion Gap 17 BUN 16 Creatinine 0.6 L Est GFR ( Amer) > 60 Est GFR (Non-Af Amer) > 60 POC Glucose (mg/dL) 110 Random Glucose 126 H Calcium 9.1 Total Bilirubin 0.8 AST 30 ALT 17 Alkaline Phosphatase 89 Total Protein 7.8 Albumin 4.0 Globulin 3.8 Albumin/Globulin Ratio 1.0 Blood Type O POSITIVE Antibody Screen Negative Assessment & Plan - Assessment and Plan (Free Text) Assessment: Right Ankle open fracture with Air in Soft Tissue 4/3: f/u repeat Echo Patient is moderate - high risk for CV event during surgery. Aortic Stenosis with Pulmonary HTN 4/3: f/u repeat Echo Patient is moderate - high risk for CV event during surgery. Lipid Panel NORMAL Pt with dyspnea on exertion Continue Duoneb 3ml INH RQ6 PRN for shortness of breath HTN BP 149/78. Continue current management. -Continue Losartan 50mg PO q12 - Monitor Case Discussed with Dr. Bryce Lewis, PGY2 - Date & Time Date: 02/23/18 Time: 10:16 <Solo Wu - Last Filed: 02/23/18 23:46> Meds - Medications Medications: Current Medications Albuterol/Ipratropium (Duoneb 3 Mg/0.5 Mg (3 Ml) Ud) 3 ml INH RQ6 PRN PRN Reason: Shortness of Breath Dextrose (Dextrose 50% Inj) 0 ml IV STAT PRN; Protocol PRN Reason: Hypoglycemia Protocol Dextrose (Glutose 15) 0 gm PO ONCE PRN; Protocol PRN Reason: Hypoglycemia Protocol Docusate Sodium (Colace) 100 mg PO BID [facility] Last Admin: 02/23/18 18:30 Dose: Not Given Glucagon (Glucagen Diagnostic Kit) 0 mg IM STAT PRN; Protocol PRN Reason: Hypoglycemia Protocol Hydromorphone HCl (Dilaudid) 0.5 mg IVP Q4H PRN PRN Reason: Pain, severe (8-10) Dextrose (Dextrose 5% In Water 1000 Ml) 1,000 mls @ 0 mls/hr IV .Q0M PRN; Protocol; Per Protocol PRN Reason: Hypoglycemia Protocol Vancomycin/Sodium Chloride (Vancomycin 1 Gm/Ns 200 Ml) 1 gm in 200 mls @ 133.333 mls/hr IVPB Q12H [facility] PRN Reason: Protocol Stop: 02/28/18 11:01 Last Admin: 02/23/18 11:53 Dose: 133.333 mls/hr Piperacillin Sod/Tazobactam Sod (Zosyn 3.375 Gm Iv Premix) 3.375 gm in 50 mls @ 100 mls/hr IVPB Q6H [facility] PRN Reason: Protocol Last Admin: 02/23/18 23:15 Dose: 50 mls Insulin Human Regular (Novolin R) 0 unit SC ACHS [facility] PRN Reason: Protocol Last Admin: 02/23/18 22:41 Dose: Not Given Losartan Potassium (Cozaar) 50 mg PO Q12H [facility] Last Admin: 02/23/18 22:41 Dose: Not Given Morphine Sulfate (Morphine) 1 mg IVP Q4 PRN PRN Reason: Pain, moderate (4-7) Last Admin: 02/23/18 12:01 Dose: 1 mg Ondansetron HCl (Zofran Inj) 4 mg IVP Q6H PRN PRN Reason: Nausea/Vomiting Pantoprazole Sodium (Protonix Ec Tab) 40 mg PO DAILY [facility] Last Admin: 02/23/18 10:13 Dose: 40 mg Pregabalin (Lyrica) 25 mg PO HS [facility] Last Admin: 02/23/18 22:41 Dose: Not Given Saccharomyces Boulardii (Florastor) 250 mg PO BID [facility] Last Admin: 02/23/18 18:30 Dose: Not Given Results - Vital Signs Recent Vital Signs: Last Vital Signs Temp 97.3 F L 02/23/18 22:19 Pulse 83 02/23/18 23:15 Resp 16 02/23/18 23:15 BP 135/67 02/23/18 23:15 Pulse Ox 100 02/23/18 23:15 - Labs Result Diagrams: 02/23/18 02:00 02/23/18 02:00 Labs: Laboratory Results - last 24 hr 02/23/18 02/23/18 02/23/18 01:42 01:52 02:00 WBC 11.9 H RBC 4.47 Hgb 12.2 D Hct 37.0 MCV 82.8 MCH 27.3 MCHC 32.9 L RDW 14.1 Plt Count 357 MPV 8.9 Neut % (Auto) 63.4 Lymph % (Auto) 24.9 [place] % (Auto) 7.0 Eos % (Auto) 3.6 Baso % (Auto) 1.1 Neut # (Auto) 7.5 H Lymph # (Auto) 3.0 [place] # (Auto) 0.8 Eos # (Auto) 0.4 Baso # (Auto) 0.1 PT 10.2 INR 0.9 APTT 32 Sodium Potassium Chloride Carbon Dioxide Anion Gap BUN Creatinine Est GFR ( Amer) Est GFR (Non-Af Amer) POC Glucose (mg/dL) 132 H Random Glucose Hemoglobin A1c Calcium Total Bilirubin AST ALT Alkaline Phosphatase Total Protein Albumin Globulin Albumin/Globulin Ratio Triglycerides Cholesterol LDL Cholesterol Direct HDL Cholesterol Blood Type Antibody Screen 02/23/18 02/23/18 02/23/18 02:00 02:00 08:32 WBC RBC Hgb Hct MCV MCH MCHC RDW Plt Count MPV Neut % (Auto) Lymph % (Auto) [place] % (Auto) Eos % (Auto) Baso % (Auto) Neut # (Auto) Lymph # (Auto) [place] # (Auto) Eos # (Auto) Baso # (Auto) PT INR APTT Sodium 141 Potassium 4.6 Chloride 105 Carbon Dioxide 24 Anion Gap 17 BUN 16 Creatinine 0.6 L Est GFR ( Amer) > 60 Est GFR (Non-Af Amer) > 60 POC Glucose (mg/dL) 110 Random Glucose 126 H Hemoglobin A1c Calcium 9.1 Total Bilirubin 0.8 AST 30 ALT 17 Alkaline Phosphatase 89 Total Protein 7.8 Albumin 4.0 Globulin 3.8 Albumin/Globulin Ratio 1.0 Triglycerides 109 D Cholesterol 162 LDL Cholesterol Direct 84 HDL Cholesterol 51 Blood Type O POSITIVE Antibody Screen Negative 02/23/18 02/23/18 02/23/18 10:08 11:36 16:59 WBC RBC Hgb Hct MCV MCH MCHC RDW Plt Count MPV Neut % (Auto) Lymph % (Auto) [place] % (Auto) Eos % (Auto) Baso % (Auto) Neut # (Auto) Lymph # (Auto) [place] # (Auto) Eos # (Auto) Baso # (Auto) PT INR APTT Sodium Potassium Chloride Carbon Dioxide Anion Gap BUN Creatinine Est GFR ( Amer) Est GFR (Non-Af Amer) POC Glucose (mg/dL) 199 H 90 Random Glucose Hemoglobin A1c 6.9 H Calcium Total Bilirubin AST ALT Alkaline Phosphatase Total Protein Albumin Globulin Albumin/Globulin Ratio Triglycerides Cholesterol LDL Cholesterol Direct HDL Cholesterol Blood Type Antibody Screen Assessment & Plan - Assessment and Plan (Free Text) Plan: Patient seen and evaluated Plan of care d/w the administrative resident and as documented
[2018-02-23] MEDS: Morphine 4 MG/ML VIAL IVP PRN ×3 (10:29→16:44)
[2018-02-23 10:32] LABS: HDL CHOLESTEROL 51 mg/dL (30-70)
--- NOTE | 2018-02-23 10:32 | CP.PCM.PN ---
Subjective - Date & Time of Evaluation Date of Evaluation: 02/23/18 Time of Evaluation: 10:12 - Subjective Subjective: PGY-[address] Mignon Sierra. No acute events noted overnight. Patient s/p closed reduction with podiatry today. She said her pain is controlled. She was relaxing, laughing and watching tv. She denied chest pain, shortness of breath, excessive bleeding from wound site, nausea, vomiting, fevers. Objective - Vital Signs/Intake and Output Vital Signs (last 24 hours): Temp Pulse Resp BP Pulse Ox 97.3 F L 86 18 149/78 99 02/23/18 08:01 02/23/18 10:09 02/23/18 08:01 02/23/18 10:09 02/23/18 08:01 - Medications Medications: Current Medications Albuterol/Ipratropium (Duoneb 3 Mg/0.5 Mg (3 Ml) Ud) 3 ml INH RQ6 PRN PRN Reason: Shortness of Breath Dextrose (Dextrose 50% Inj) 0 ml IV STAT PRN; Protocol PRN Reason: Hypoglycemia Protocol Dextrose (Glutose 15) 0 gm PO ONCE PRN; Protocol PRN Reason: Hypoglycemia Protocol Docusate Sodium (Colace) 100 mg PO BID GABRIELA Glucagon (Glucagen Diagnostic Kit) 0 mg IM STAT PRN; Protocol PRN Reason: Hypoglycemia Protocol Heparin Sodium (Porcine) (Heparin) 5,000 units SC ONCE ONE Stop: 02/23/18 17:01 Dextrose (Dextrose 5% In Water 1000 Ml) 1,000 mls @ 0 mls/hr IV .Q0M PRN; Protocol; Per Protocol PRN Reason: Hypoglycemia Protocol Sodium Chloride (Sodium Chloride 0.45%) 1,000 mls @ 70 mls/hr IV .[id number] ONE Stop: 02/23/18 20:41 Last Admin: 02/23/18 08:30 Dose: 70 mls/hr Vancomycin/Sodium Chloride (Vancomycin 1 Gm/Ns 200 Ml) 1 gm in 200 mls @ 133.333 mls/hr IVPB Q12H GABRIELA PRN Reason: Protocol Stop: 02/28/18 11:01 Piperacillin Sod/Tazobactam Sod (Zosyn 3.375 Gm Iv Premix) 3.375 gm in 50 mls @ 100 mls/hr IVPB Q6H GABRIELA PRN Reason: Protocol Last Admin: 02/23/18 09:56 Dose: 100 mls/hr Insulin Human Regular (Novolin R) 0 unit SC ACHS GABRIELA PRN Reason: Protocol Last Admin: 02/23/18 08:40 Dose: Not Given Losartan Potassium (Cozaar) 50 mg PO Q12H GABRIELA Morphine Sulfate (Morphine) 2 mg IVP Q4 PRN PRN Reason: Pain, severe (8-10) Morphine Sulfate (Morphine) 1 mg IVP Q4 PRN PRN Reason: Pain, moderate (4-7) Ondansetron HCl (Zofran Inj) 4 mg IVP Q6H PRN PRN Reason: Nausea/Vomiting Pantoprazole Sodium (Protonix Ec Tab) 40 mg PO DAILY GABRIELA Pregabalin (Lyrica) 25 mg PO HS GABRIELA Saccharomyces Boulardii (Florastor) 250 mg PO BID GABRIELA - Labs Labs: 02/23/18 02:00 02/23/18 02:00 PT 10.2 SECONDS (9.7-12.2) 02/23/18 01:52 INR 0.9 02/23/18 01:52 APTT 32 SECONDS (21-34) 02/23/18 01:52 - Additional Findings Additional findings: - Constitutional Appears: No Acute Distress - Head Exam Head Exam: ATRAUMATIC, NORMAL INSPECTION - Eye Exam Eye Exam: EOMI, Normal appearance - ENT Exam ENT Exam: Mucous Membranes Moist - Respiratory Exam Respiratory Exam: Clear to Auscultation Bilateral, NORMAL BREATHING PATTERN - Cardiovascular Exam Cardiovascular Exam: REGULAR RHYTHM, RRR, +S1, +S2, Systolic Murmur. absent: JVD - GI/Abdominal Exam GI & Abdominal Exam: Normal Bowel Sounds, Soft. absent: Tenderness Additional comments: obese - Extremities Exam Additional comments: Right LE cast in place, good dorsalis pedis pulses b/l - Neurological Exam Neurological exam: Alert, Oriented x3, right lower extremity sensations intact Assessment and Plan - Assessment and Plan (Free Text) Assessment: Right Ankle open fracture with Air in Soft Tissue Ortho Consult: Dr. Solorio --> help appreciated Infectious Disease consult, Dr Campbell * Agrees with Abx selection Podiatry consult, Dr Sierra * s/p closed reduction with podiatry today, DPM Dr Willard * Scheduled for surgery with Dr Sierra tomorrow 02/24/18 AM NPO Imaging: Ankle XRAY: Fractures of the distal right tibia and fibula with associated subluxation Chest XRAY: No active disease F/U Lower extremity CT Meds: Zosyn 3.375g IVP Q6H Vancomcyin 1g IVPB Q12H Florastor 250mg PO BID Morphine 2mg IVP Q4H PRN for severe pain Morphine 1mg IVP Q4H PRN for moderate pain Colace 100mg PO BID NS 70cc/hr History of DM ISS Accuchecks Hypoglycemia protocol A1c 6.9 Aortic Stenosis with Pulmonary HTN Exertional dyspnea Cardio Consult: Dr. Wu --> help appreciated * Spoke with Dr. Wu and stated repeat ECHO can be completed as routine * due to patient's chronic medical conditions such as exertional dyspnea, aortic stenosis and pulmonary HTN patient is a moderate to high risk. ECHO (12/02/2016): left ventricular ejection fraction within the normal range. Moderate valvular aortic stenosis. Mild to moderate tricuspid regurgitation. f/u ECHO Lipid Panel NORMAL Meds: Duoneb 3ml INH RQ6 PRN for shortness of breath 1st Degree Heart Block on EKG Prolonged QTc 473 HTN Continue home medications Losartan 50mg PO BID Lumbar Spinal Stenosis s/p spinal surgery 2018 With urinary incontinence since spinal surgery 2018 Inserted gallegos Meds: Cont home med Pregabalin 25mg PO HS Prophylaxis Protonix 40mg PO QD Holding AO for possible surgical procedure Vegetarian Diet - NPO after midnight
[2018-02-23 10:43] LABS: LDL CHOLESTEROL 84 mg/dL (0-129)
[2018-02-23] MEDS ORDERED: Midazolam 5 MG/5 ML VIAL IVP ONE (11:23)
[2018-02-23] MEDS ORDERED: Lidocaine 1% Inj (20ml) IV ONE (11:28)
[2018-02-23] MEDS ORDERED: Bupivacaine 0.25% Inj(30mL) IJ ONE (11:29)
--- NOTE | 2018-02-23 11:32 | CP.PCM.CON ---
History of Present Illness - History of Present Illness History of Present Illness: Podiatry Consult Note- Dr. Sierra This is a 77 yo female patient who is seen at bedside today following request for podiatry consult. Pt states that she slipped and fell at home in the bathroom late last night and says she twisted her right ankle. Pt says she felt a snap in her ankle, fell to the floor and saw blood everywhere. She reports she used her life alert to call for help and was taking to the emergency room. She denies any other injuries from the fall, denies LOC. Pt deneis f/n/v/c/sob/ cp/weakness or dizziness at this time. She does complain of pain to the inside and outside of her ankle, well-controlled with pain medication. Denies any numbness or tingling. Offers no further complaints at this time. Last ate food 11 am today. PMH: pumonary HTN, aortic stenosis, spinal stenosis, chronic exertional dyspnea , urinary incontinence, DM ALL: NKDA Meds: see MAR Surg Hx: spinal surgery November 2017 Soc. Hx: denies etoh, denies every smoking, denies illicit drug use, lives alone at home, lives on first floor, ambulates with walker Review of Systems - Review of Systems Review of Systems: all systems reviewed and found to be negative outside hpi Past Patient History - Infectious Disease Hx of Infectious Diseases: None - Past Medical History & Family History Past Medical History?: Yes - Past Social History Smoking Status: Never Smoked - CARDIAC Hx Congestive Heart Failure: Yes Hx Hypertension: Yes Hx Peripheral Edema: Yes - PULMONARY Hx Asthma: Yes - NEUROLOGICAL Hx Neurological Disorder: Yes Other/Comment: DIABETIC NEUROPATHY, INTRERVERTREBRAL DISC DISEASE - HEENT Hx HEENT Problems: No - RENAL Hx Chronic Kidney Disease: No - ENDOCRINE/METABOLIC Hx Endocrine Disorders: Yes Hx Diabetes Mellitus Type 2: Yes - HEMATOLOGICAL/ONCOLOGICAL Hx Anemia: Yes - INTEGUMENTARY Hx Dermatological Problems: No - MUSCULOSKELETAL/RHEUMATOLOGICAL Hx Rheumatoid Arthritis: Yes - GASTROINTESTINAL Hx Gastrointestinal Disorders: No - GENITOURINARY/GYNECOLOGICAL Hx Genitourinary Disorders: Yes Hx Hematuria: Yes - PSYCHIATRIC Hx Anxiety: Yes Hx Substance Use: No - SURGICAL HISTORY Hx Surgeries: Yes Hx Cardiac Catheterization: Yes Other/Comment: SPINAL SURGERY(lumbar) - ANESTHESIA Hx Anesthesia: Yes Hx Anesthesia Reactions: No Meds Allergies/Adverse Reactions: Allergies Allergy/AdvReac Type Severity Reaction Status Date / Time No Known Allergies Allergy Verified 01/07/16 09:41 - Medications Medications: Current Medications Albuterol/Ipratropium (Duoneb 3 Mg/0.5 Mg (3 Ml) Ud) 3 ml INH RQ6 PRN PRN Reason: Shortness of Breath Bupivacaine HCl (Marcaine 0.25%) 30 ml IJ ONCE ONE Stop: 02/23/18 11:30 Dextrose (Dextrose 50% Inj) 0 ml IV STAT PRN; Protocol PRN Reason: Hypoglycemia Protocol Dextrose (Glutose 15) 0 gm PO ONCE PRN; Protocol PRN Reason: Hypoglycemia Protocol Docusate Sodium (Colace) 100 mg PO BID [facility] Last Admin: 02/23/18 10:13 Dose: 100 mg Glucagon (Glucagen Diagnostic Kit) 0 mg IM STAT PRN; Protocol PRN Reason: Hypoglycemia Protocol Heparin Sodium (Porcine) (Heparin) 5,000 units SC ONCE ONE Stop: 02/23/18 17:01 Dextrose (Dextrose 5% In Water 1000 Ml) 1,000 mls @ 0 mls/hr IV .Q0M PRN; Protocol; Per Protocol PRN Reason: Hypoglycemia Protocol Sodium Chloride (Sodium Chloride 0.45%) 1,000 mls @ 70 mls/hr IV .[id number] ONE Stop: 02/23/18 20:41 Last Admin: 02/23/18 08:30 Dose: 70 mls/hr Vancomycin/Sodium Chloride (Vancomycin 1 Gm/Ns 200 Ml) 1 gm in 200 mls @ 133.333 mls/hr IVPB Q12H GABRIELA PRN Reason: Protocol Stop: 02/28/18 11:01 Piperacillin Sod/Tazobactam Sod (Zosyn 3.375 Gm Iv Premix) 3.375 gm in 50 mls @ 100 mls/hr IVPB Q6H GABRIELA PRN Reason: Protocol Last Admin: 02/23/18 09:56 Dose: 100 mls/hr Insulin Human Regular (Novolin R) 0 unit SC ACHS GABRIELA PRN Reason: Protocol Last Admin: 02/23/18 08:40 Dose: Not Given Lidocaine HCl (Lidocaine 1%) 20 ml IV ONCE ONE Stop: 02/23/18 11:29 Losartan Potassium (Cozaar) 50 mg PO Q12H [facility] Last Admin: 02/23/18 10:13 Dose: 50 mg Midazolam HCl (Versed Inj) 1 mg IVP ONCE ONE Stop: 02/23/18 11:24 Midazolam HCl (Versed Inj) 1 mg IVP ONCE ONE Stop: 02/23/18 11:24 Morphine Sulfate (Morphine) 2 mg IVP Q4 PRN PRN Reason: Pain, severe (8-10) Last Admin: 02/23/18 10:29 Dose: 2 mg Morphine Sulfate (Morphine) 1 mg IVP Q4 PRN PRN Reason: Pain, moderate (4-7) Ondansetron HCl (Zofran Inj) 4 mg IVP Q6H PRN PRN Reason: Nausea/Vomiting Pantoprazole Sodium (Protonix Ec Tab) 40 mg PO DAILY [facility] Last Admin: 02/23/18 10:13 Dose: 40 mg Pregabalin (Lyrica) 25 mg PO HS [facility] Saccharomyces Boulardii (Florastor) 250 mg PO BID [facility] Last Admin: 02/23/18 10:13 Dose: 250 mg Physical Exam - Constitutional Appears: Non-toxic, No Acute Distress - Extremities Exam Extremities exam: Negative for: calf tenderness Additional comments: RLE focused exam: leg seen elevated on pillows with a posterior splint intact VASC- DP pulse is palpable (2/4) unable to assess PT pulse due to open wound, moderate edema noted to dorsal foot and medial malleolus, cap refill < 3 sec to all digits. NEURO- gross and protective pedal sensation are intact DERM- there is a 4.5 laceration noted to medial malleolus with exposed bone of medial malleolus, there is active serosanguinous drainage noted to wound and on bandage, no other lesions noted ORTHO- positive pain on palpation of medial and lateral malleoli, tenderness to palp of medial and lateral gutters, tender to palpation of ATFL, able to wiggle all toes freely, MMT deferred due to guarding, neg pain on compression of posterior leg - Neurological Exam Neurological exam: Alert, CN II-XII Intact, Oriented x3 - Psychiatric Exam Psychiatric exam: Normal Affect, Normal Mood Results - Vital Signs Recent Vital Signs: Last Vital Signs Temp 97.3 F L 02/23/18 08:01 Pulse 86 02/23/18 10:09 Resp 18 02/23/18 08:01 BP 149/78 02/23/18 10:09 Pulse Ox 99 02/23/18 08:01 - Labs Result Diagrams: 02/23/18 02:00 02/23/18 02:00 Labs: Laboratory Results - last 24 hr 02/23/18 02/23/18 02/23/18 01:42 01:52 02:00 WBC 11.9 H RBC 4.47 Hgb 12.2 D Hct 37.0 MCV 82.8 MCH 27.3 MCHC 32.9 L RDW 14.1 Plt Count 357 MPV 8.9 Neut % (Auto) 63.4 Lymph % (Auto) 24.9 Stearns % (Auto) 7.0 Eos % (Auto) 3.6 Baso % (Auto) 1.1 Neut # (Auto) 7.5 H Lymph # (Auto) 3.0 Stearns # (Auto) 0.8 Eos # (Auto) 0.4 Baso # (Auto) 0.1 PT 10.2 INR 0.9 APTT 32 Sodium Potassium Chloride Carbon Dioxide Anion Gap BUN Creatinine Est GFR ( Amer) Est GFR (Non-Af Amer) POC Glucose (mg/dL) 132 H Random Glucose Hemoglobin A1c Calcium Total Bilirubin AST ALT Alkaline Phosphatase Total Protein Albumin Globulin Albumin/Globulin Ratio Triglycerides Cholesterol LDL Cholesterol Direct HDL Cholesterol Blood Type Antibody Screen 02/23/18 02/23/18 02/23/18 02:00 02:00 08:32 WBC RBC Hgb Hct MCV MCH MCHC RDW Plt Count MPV Neut % (Auto) Lymph % (Auto) Stearns % (Auto) Eos % (Auto) Baso % (Auto) Neut # (Auto) Lymph # (Auto) Stearns # (Auto) Eos # (Auto) Baso # (Auto) PT INR APTT Sodium 141 Potassium 4.6 Chloride 105 Carbon Dioxide 24 Anion Gap 17 BUN 16 Creatinine 0.6 L Est GFR ( Amer) > 60 Est GFR (Non-Af Amer) > 60 POC Glucose (mg/dL) 110 Random Glucose 126 H Hemoglobin A1c Calcium 9.1 Total Bilirubin 0.8 AST 30 ALT 17 Alkaline Phosphatase 89 Total Protein 7.8 Albumin 4.0 Globulin 3.8 Albumin/Globulin Ratio 1.0 Triglycerides 109 D Cholesterol 162 LDL Cholesterol Direct 84 HDL Cholesterol 51 Blood Type O POSITIVE Antibody Screen Negative 02/23/18 10:08 WBC RBC Hgb Hct MCV MCH MCHC RDW Plt Count MPV Neut % (Auto) Lymph % (Auto) Stearns % (Auto) Eos % (Auto) Baso % (Auto) Neut # (Auto) Lymph # (Auto) Stearns # (Auto) Eos # (Auto) Baso # (Auto) PT INR APTT Sodium Potassium Chloride Carbon Dioxide Anion Gap BUN Creatinine Est GFR ( Amer) Est GFR (Non-Af Amer) POC Glucose (mg/dL) Random Glucose Hemoglobin A1c 6.9 H Calcium Total Bilirubin AST ALT Alkaline Phosphatase Total Protein Albumin Globulin Albumin/Globulin Ratio Triglycerides Cholesterol LDL Cholesterol Direct HDL Cholesterol Blood Type Antibody Screen Assessment & Plan - Assessment and Plan (Free Text) Assessment: 77 yo female patient with open, displaced trimalleolar ankle fracture 2/ trauma Plan: Pt seen and evaluated at the bedside Plan discussed with attending Dr. Seirra and medical attending Dr. Tarah Sierra chart, labs and vitals were reviewed Ankle x-rays and lower extremity CT reviewed: fracture of distal fibula, with significantly increased medial clear space of medial ankle, small posterior fragment of posterior ankle joint Written consent obtained from patient for closed reduction of right ankle joint. All risks and benefits of the procedure (including not performing the procedure) discussed with patient. 1 mg IV versed administered to patient. Next ankle joint prepped with alcohol and 20 cc of 2% lidocaine plain given via hematoma block to medial aspect ankle joint. Once adequate anesthetic effect achieved, the open wound was flushed with copious sterile normal saline. The wound was then dressed with xeroform, DSD. Next, manual distraction and manipulation of the Rankle joint was performed in order to achieve a more corrected alignment. Portable x-ray utilized to visualize and adequate reduction was noted to be achieved with a more rectus ankle joint. RLE dressed with webril cast padding and a below knee fiberglass cast was applied Pt is to remain NWB to RLE, keep leg elevated and ice behind knee NPO ordered, for OR tonight 7pm with Dr. Sierra for ORIF R ankle fx with possible ex fix Pt is aware and agreeable to plan Per cardiology Dr. Wu, patient is a moderate-high risk for CV event intra- operatively. Afternoon heparin to be held. Podiatry will follow
--- NOTE | 2018-02-23 11:33 | RAD ---
PROCEDURE: Right Ankle Radiographs. HISTORY: R/O FRACTURE COMPARISON: None FINDINGS: BONES: Distal right fibular fracture. Adjacent distal tibial tibial fracture. Subluxed ankle mortise. JOINTS: Disruption of the ankle mortise with medial subluxation of the right tibia relative to the talus. SOFT TISSUES: Soft tissue swelling attests to the acuity of the fracture. OTHER FINDINGS: None. IMPRESSION: Fractures of the distal right tibia and fibula of with associated subluxation
--- NOTE | 2018-02-23 11:40 | RAD ---
PROCEDURE: CHEST RADIOGRAPH, 1 VIEW HISTORY: FALL COMPARISON: 12/01/2016 FINDINGS: LUNGS: Clear. PLEURA: No pneumothorax or pleural fluid seen. CARDIOVASCULAR: No radiographic findings to suggest acute or significant cardiovascular disease. OSSEOUS STRUCTURES: No significant abnormalities. VISUALIZED UPPER ABDOMEN: Normal. OTHER FINDINGS: None. IMPRESSION: No active disease. No acute/significant interval changes.
[2018-02-23] MEDS ORDERED: Lidocaine 2% Inj (20ml) IV ONE (11:47)
[2018-02-23] MEDS: Vancomycin 1 gm/NS 200 ml 1 GM/200 ML BAG IVPB SCH ×2 (11:53→23:50)
[2018-02-23] MEDS ORDERED: Lidocaine 2% Inj (20ml) INFIL ONE (12:15)
--- NOTE | 2018-02-23 14:19 | CT ---
CT right ankle History: Injury. Comparison: X-ray dated 02/23/2018 Technique: Multi-echo multiplanar sequences were performed through the right ankle without the use of intravenous contrast. Subsequently, sagittal and coronal reformatted images were obtained. This CT exam was performed using one or more of the following dose reduction techniques: Automated exposure control, adjustment of the mA and/or kV according to patient size, and/or use of iterative reconstruction technique. Findings: Acute oblique distracted fracture of the distal fibula extending from the ankle joint space to the lateral cortex of the distal medullary cavity. Multiple comminuted fracture fragments with 6-7 millimeter displacement of the main fracture site. Acute fracture of the posterior malleolus of the distal tibia with associated intra-articular extension and mild comminution as well as mild displacement. Productive change and or small avulsion injury at the level of the medial malleolus of the distal tibia. Prominent disruption of the ankle mortise with 1.4 centimeter widening of the medial ankle mortise. Multiple comminuted fracture fragments are noted at the level of the ankle joint space. Acute fracture deformity of the proximal 4th metatarsal bone. Acute intra-articular fracture deformities of the proximal 2nd and 3rd metatarsal bones. At the level of the 2nd metatarsal base, there appears to be extension to the level of the Lisfranc ligament concerning for possible tearing of the Lisfranc ligament. Clinical correlation. Productive change and or small ossific density seen at the lateral aspect of the medial cuneiform bone near the Lisfranc ligament. Osteoarthritic changes at the ankle. Prominent calcaneal spurring. Moderate soft tissue air, greatest in the medial soft tissues, were there is a suspected soft tissue laceration. Diffuse soft tissue swelling. Impression: 1. Acute fractures of the distal fibula and posterior malleolus of the distal tibia as described above. 2. Disruption of the ankle mortise with medial widening noted. 3. Intraarticular fracture deformities of the 2nd and 3rd metatarsal bones proximally with a suggestion of extension and possible tearing of the Lisfranc ligament/joint. 4. Fracture of the 4th metatarsal bone proximally. 5. Diffuse soft tissue air, most likely secondary to an underlying soft tissue laceration. Open fracture not excluded. 6. Additional findings as above. These findings were preliminarily reported at 5:28 a.m. on 02/23/[address] Katie Calles from [facility].
--- NOTE | 2018-02-23 15:45 | RAD ---
PROCEDURE: Right Ankle Radiographs. HISTORY: closed reduction R ankle fx COMPARISON: February 23, 2018. 01:59 FINDINGS: BONES: No appreciable change status post close reduction of bimalleolar fracture subluxation. In part this may be technical. . JOINTS: Normal. No osteoarthritis. Ankle mortise maintained. Talar dome intact SOFT TISSUES: Normal. OTHER FINDINGS: None. IMPRESSION: No significant interval change compared to the prior examination(s).
[2018-02-23] MEDS ORDERED: Etomidate 20 mg/10ml Inj IV ONE (19:13)
[2018-02-23] MEDS ORDERED: Phenylephrine 10 mg/ml Inj ONE (19:13)
[2018-02-23] MEDS ORDERED: Lidocaine Hydrochloride 5 ML INJ ONE (19:13)
[2018-02-23] MEDS ORDERED: Albuterol HFA 90 mcg/actuation (8 g) ONE (19:13)
[2018-02-23] MEDS ORDERED: HYDROmorphone 0.5 mg/0.5 ml ISec IVP PRN ×2 (21:40→22:25)
[2018-02-23] MEDS ORDERED: Bupivacaine 0.25% Inj(30mL) ONE (21:53)
--- NOTE | 2018-02-23 22:25 | PCM.SURG1 ---
Surgeon's Initial Post Op Note - Surgeon's Notes Surgeon: Dr. Sierra Mutuel Clerk: Dr. Dennis, PGY-3, Dr. Rodriguez, PGY-3, Dr. Polk, PGY-2, Dr. Willard Type of Anesthesia: General Endo Pre-Operative Diagnosis: Right ankle open trimalleolar equivalent fracture Operative Findings: see dictation. I: 30ml 0.25% marcaine plain. M: see inventory sheet in chart Post-Operative Diagnosis: Right ankle open trimalleolar equivalent fracture Operation Performed: 1.) ORIF of right ankle fibular fracture and syndesmotic injury. 2.) Irrigation and debridement of right ankle open fracture wound with primary closure Specimen/Specimens Removed: None Estimated Blood Loss: EBL {In ML}: 20 Blood Products Given: N/A Drains Used: No Drains Post-Op Condition: Good Date of Surgery/Procedure: 02/23/18 Time of Surgery/Procedure: 20:00
[2018-02-23] MEDS ORDERED: HYDROmorphone 1 mg/ml ISec ONE (22:34)
[2018-02-24] MEDS: HYDROmorphone 1 mg/ml ISec IVP PRN ×4 (01:05→22:02)
[2018-02-24] MEDS: Morphine 4 MG/ML VIAL IVP PRN ×3 (03:49→15:31)
[2018-02-24] MEDS: Piperacill/Tazo 3.375gm in Dex 3.375 GM/50 ML BAG IVPB SCH ×4 (03:53→21:23)
[2018-02-24 06:16] LABS: BASO # 0.1 K/uL (0.0-0.2); BASO % 0.5 % (0.0-2.0); EOS # 0.2 K/uL (0.0-0.7); EOS % 1.4 % (0.0-4.0); HEMOGLOBIN 10.3 g/dL (11.0-16.0); LYMPH # 1.6 K/uL (1.0-4.3); LYMPH % 14.3 % (20.0-40.0); MEAN CELL VOLUME 82.1 fL (81.0-99.0); MEAN CORPUSCULAR HEMOGLOBIN 27.5 pg (27.0-31.0); MEAN CORPUSCULAR HGB CONC 33.5 g/dL (33.0-37.0); MEAN PLATELET VOLUME 8.5 fL (7.2-11.7); MONO # 1.2 K/uL (0.0-0.8); MONO % 11.2 % (0.0-10.0); NEUT # 8.1 K/uL (1.8-7.0); NEUT % 72.6 % (50.0-75.0); RBC 3.76 Mil/uL (3.80-5.20); RED CELL DISTRIBUTION WIDTH 14.1 % (11.5-14.5); WHITE BLOOD COUNT 11.1 K/uL (4.8-10.8)
--- NOTE | 2018-02-24 07:27 | CP.PCM.PN ---
<Chriss Martin - Last Filed: 02/24/18 11:11> Subjective - Date & Time of Evaluation Date of Evaluation: 02/24/18 Time of Evaluation: 07:18 - Subjective Subjective: PGY-[address] Mignon Sierra. No acute events noted overnight. Patient s/p closed reduction with podiatry yesterday afternoon and s/p ORIF of right ankle fibular fracture yesterday evening. She said her pain is controlled. She was relaxing, laughing and watching tv. Leg was elevated as advised. She denied chest pain, shortness of breath, excessive bleeding from wound site, nausea, vomiting, fevers. Objective - Vital Signs/Intake and Output Vital Signs (last 24 hours): Temp Pulse Resp BP Pulse Ox 98.3 F 91 H 20 136/84 98 02/24/18 04:28 02/24/18 04:28 02/24/18 04:28 02/24/18 04:28 02/24/18 04:28 Intake and Output: 02/24/18 02/24/18 06:59 18:59 Intake Total 500 Output Total 650 Balance -150 - Medications Medications: Current Medications Albuterol/Ipratropium (Duoneb 3 Mg/0.5 Mg (3 Ml) Ud) 3 ml INH RQ6 PRN PRN Reason: Shortness of Breath Dextrose (Dextrose 50% Inj) 0 ml IV STAT PRN; Protocol PRN Reason: Hypoglycemia Protocol Dextrose (Glutose 15) 0 gm PO ONCE PRN; Protocol PRN Reason: Hypoglycemia Protocol Docusate Sodium (Colace) 100 mg PO BID [facility] Last Admin: 02/23/18 18:30 Dose: Not Given Glucagon (Glucagen Diagnostic Kit) 0 mg IM STAT PRN; Protocol PRN Reason: Hypoglycemia Protocol Hydromorphone HCl (Dilaudid) 0.5 mg IVP Q4H PRN PRN Reason: Pain, severe (8-10) Last Admin: 02/24/18 06:19 Dose: 0.5 mg Dextrose (Dextrose 5% In Water 1000 Ml) 1,000 mls @ 0 mls/hr IV .Q0M PRN; Protocol; Per Protocol PRN Reason: Hypoglycemia Protocol Vancomycin/Sodium Chloride (Vancomycin 1 Gm/Ns 200 Ml) 1 gm in 200 mls @ 133.333 mls/hr IVPB Q12H [facility] PRN Reason: Protocol Stop: 02/28/18 11:01 Last Admin: 02/23/18 23:50 Dose: 133.333 mls/hr Piperacillin Sod/Tazobactam Sod (Zosyn 3.375 Gm Iv Premix) 3.375 gm in 50 mls @ 100 mls/hr IVPB Q6H [facility] PRN Reason: Protocol Last Admin: 02/24/18 03:53 Dose: 100 mls/hr Insulin Human Regular (Novolin R) 0 unit SC ACHS [facility] PRN Reason: Protocol Last Admin: 02/23/18 22:41 Dose: Not Given Losartan Potassium (Cozaar) 50 mg PO Q12H [facility] Last Admin: 02/23/18 22:41 Dose: Not Given Morphine Sulfate (Morphine) 1 mg IVP Q4 PRN PRN Reason: Pain, moderate (4-7) Last Admin: 02/24/18 03:49 Dose: 1 mg Ondansetron HCl (Zofran Inj) 4 mg IVP Q6H PRN PRN Reason: Nausea/Vomiting Pantoprazole Sodium (Protonix Ec Tab) 40 mg PO DAILY [facility] Last Admin: 02/23/18 10:13 Dose: 40 mg Pregabalin (Lyrica) 25 mg PO HS [facility] Last Admin: 02/23/18 22:41 Dose: Not Given Saccharomyces Boulardii (Florastor) 250 mg PO BID [facility] Last Admin: 02/23/18 18:30 Dose: Not Given - Labs Labs: 02/24/18 06:03 02/23/18 02:00 PT 10.2 SECONDS (9.7-12.2) 02/23/18 01:52 INR 0.9 02/23/18 01:52 APTT 32 SECONDS (21-34) 02/23/18 01:52 - Additional Findings Additional findings: - Constitutional Appears: No Acute Distress - Head Exam Head Exam: ATRAUMATIC, NORMAL INSPECTION - Eye Exam Eye Exam: EOMI, Normal appearance - ENT Exam ENT Exam: Mucous Membranes Moist - Respiratory Exam Respiratory Exam: Clear to Auscultation Bilateral, NORMAL BREATHING PATTERN - Cardiovascular Exam Cardiovascular Exam: REGULAR RHYTHM, RRR, +S1, +S2, Systolic Murmur. absent: JVD - GI/Abdominal Exam GI & Abdominal Exam: Normal Bowel Sounds, Soft. absent: Tenderness Additional comments: obese - Rectal Exam Additional comments: No gross blood seen on rectal. Discoloration 3 inches lateral to anus on right could have been site of previous fissure. No other evidence of fissure seen. No abnormal masses palpated. Skin tag inferior to right gluteal fold. - Extremities Exam Additional comments: Right LE cast in place, good dorsalis pedis pulses b/l - Neurological Exam Neurological exam: Alert, Oriented x3, right lower extremity sensations intact Assessment and Plan - Assessment and Plan (Free Text) Assessment: Right Ankle open fracture with Air in Soft Tissue Ortho Consult: Dr. Solorio --> help appreciated Infectious Disease consult, Dr Campbell * Agrees with Abx selection Podiatry consult, Dr Sierra * s/p closed reduction with podiatry afternoon 02/23/18, DPM Dr Willard * s/p 1.) ORIF of right ankle fibular fracture and syndesmotic injury. 2.) Irrigation and debridement of right ankle open fracture wound with primary closure. Performed evening 02/23/[address] Sierra. Keep right leg elevated Non weight bearing to right leg Ice to right leg Imaging: Ankle XRAY: Fractures of the distal right tibia and fibula with associated subluxation Chest XRAY: No active disease Lower extremity CT: Acute fractures of distal fibula and posterior malleolus of distal tibia. Disruption of ankle mortise with medial widening. Additional fractures as described in full report. Meds: Zosyn 3.375g IVP Q6H Vancomcyin 1g IVPB Q12H * F/U vanco trough Florastor 250mg PO BID Dilaudid 0.5mg IVP Q4H PRN for severe pain Morphine 1mg IVP Q4H PRN for moderate pain Colace 100mg PO BID NS 70cc/hr History of DM ISS Accuchecks Hypoglycemia protocol A1c 6.9 Aortic Stenosis with Pulmonary HTN Exertional dyspnea Cardio Consult: Dr. Wu --> help appreciated * Spoke with Dr. Wu and stated repeat ECHO can be completed as routine * due to patient's chronic medical conditions such as exertional dyspnea, aortic stenosis and pulmonary HTN patient is a moderate to high risk. ECHO (12/02/2016): left ventricular ejection fraction within the normal range. Moderate valvular aortic stenosis. Mild to moderate tricuspid regurgitation. f/u ECHO Lipid Panel NORMAL Meds: Duoneb 3ml INH RQ6 PRN for shortness of breath Hx of Anal Fissure GI consulted, Dr Dennison Stool occult performed 02/24/18 which was NEGATIVE No gross blood seen on rectal. Discoloration 3 inches lateral to anus on right could have been site of previous fissure. No evidence of fissure seen. No abnormal masses palpated. Skin tag inferior to right gluteal fold. 1st Degree Heart Block on EKG Prolonged QTc 473 HTN Continue home medications Losartan 50mg PO BID Lumbar Spinal Stenosis s/p spinal surgery 2018 With urinary incontinence since spinal surgery 2018 Inserted gallegos Meds: Cont home med Pregabalin 25mg PO HS Prophylaxis Protonix 40mg PO QD Heparin 5000u SC Q8H Vegetarian Diet <Dion Sierra - Last Filed: 02/24/18 18:15> Objective - Vital Signs/Intake and Output Vital Signs (last 24 hours): Temp Pulse Resp BP Pulse Ox 98.9 F 99 H 20 140/82 96 02/24/18 15:24 02/24/18 15:30 02/24/18 15:24 02/24/18 17:56 02/24/18 15:24 Intake and Output: 02/24/18 02/24/18 06:59 18:59 Intake Total 1150 600 Output Total 650 450 Balance 500 150 - Medications Medications: Current Medications Albuterol/Ipratropium (Duoneb 3 Mg/0.5 Mg (3 Ml) Ud) 3 ml INH RQ6 PRN PRN Reason: Shortness of Breath Dextrose (Dextrose 50% Inj) 0 ml IV STAT PRN; Protocol PRN Reason: Hypoglycemia Protocol Dextrose (Glutose 15) 0 gm PO ONCE PRN; Protocol PRN Reason: Hypoglycemia Protocol Docusate Sodium (Colace) 100 mg PO BID [facility] Last Admin: 02/24/18 17:43 Dose: 100 mg Glucagon (Glucagen Diagnostic Kit) 0 mg IM STAT PRN; Protocol PRN Reason: Hypoglycemia Protocol Heparin Sodium (Porcine) (Heparin) 5,000 units SC Q8 [facility] Last Admin: 02/24/18 14:19 Dose: 5,000 units Hydromorphone HCl (Dilaudid) 0.5 mg IVP Q4H PRN PRN Reason: Pain, severe (8-10) Last Admin: 02/24/18 17:51 Dose: 0.5 mg Dextrose (Dextrose 5% In Water 1000 Ml) 1,000 mls @ 0 mls/hr IV .Q0M PRN; Protocol; Per Protocol PRN Reason: Hypoglycemia Protocol Vancomycin/Sodium Chloride (Vancomycin 1 Gm/Ns 200 Ml) 1 gm in 200 mls @ 133.333 mls/hr IVPB Q12H [facility] PRN Reason: Protocol Stop: 02/28/18 11:01 Last Admin: 02/24/18 12:00 Dose: 133.333 mls/hr Piperacillin Sod/Tazobactam Sod (Zosyn 3.375 Gm Iv Premix) 3.375 gm in 50 mls @ 100 mls/hr IVPB Q6H [facility] PRN Reason: Protocol Last Admin: 02/24/18 16:27 Dose: 100 mls/hr Insulin Human Regular (Novolin R) 0 unit SC ACHS [facility] PRN Reason: Protocol Last Admin: 02/24/18 12:48 Dose: Not Given Losartan Potassium (Cozaar) 50 mg PO Q12H [facility] Last Admin: 02/24/18 10:22 Dose: 50 mg Morphine Sulfate (Morphine) 1 mg IVP Q4 PRN PRN Reason: Pain, moderate (4-7) Last Admin: 02/24/18 15:31 Dose: 1 mg Ondansetron HCl (Zofran Inj) 4 mg IVP Q6H PRN PRN Reason: Nausea/Vomiting Pantoprazole Sodium (Protonix Ec Tab) 40 mg PO DAILY [facility] Last Admin: 02/24/18 10:22 Dose: 40 mg Pregabalin (Lyrica) 25 mg PO HS [facility] Last Admin: 02/23/18 22:41 Dose: Not Given Saccharomyces Boulardii (Florastor) 250 mg PO BID [facility] Last Admin: 02/24/18 17:43 Dose: 250 mg - Labs Labs: 02/24/18 06:03 02/24/18 06:03 PT 10.2 SECONDS (9.7-12.2) 02/23/18 01:52 INR 0.9 02/23/18 01:52 APTT 32 SECONDS (21-34) 02/23/18 01:52 Attending/Attestation - Attestation I have personally seen and examined this patient.: Yes I have fully participated in the care of the patient.: Yes I have reviewed all pertinent clinical information, including history, physical exam and plan: Yes Notes (Text): 02/24/18 18:07 Patient was seen and examined with the resident. Exam, assessment and plan were thoroughly gone over with the resident. Please note that the Assessment and Plan should also include the following: -Bilateral Feet Neuropathy Lyrica 25 mg PO HS Extensive conversation with patient earlier this morning when I was asked by patient Nurse Peggy to address patient's pain medication as patient was moaning. However, when I arrived to the room, patient was resting comfortably. I explained at length to patient that I realized that she just went through a very painful procedure. However at the same time the purpose of the pain medication was not to make her pain completely disappear but to get it at the level where she was comfortable as this would help to reduce the possibility of dependence leading to addiction to narcotic pain medication. She explained that she only had pain if the Right Leg was moved. I then explained that this does NOT require/necessitate increasing/administration of narcotic pain medication. She will only ask for pain medication if the level is to the point where she is nauseous or feels like she is about to cry. Plan is for Subacute Rehab once cleared by Podiatry Team and Physical/ Occupational Therapy. Patient was encouraged to perform bedside incentive spirometry at least 10x per hour while awake and this was explained to her would help to reduce the chances of developing post operative pneumonia. Ensure Enlive shakes 3x per day were also ordered for patient to supplement her meals as she did not like the food here. Dion Sierra D.O.
[2018-02-24] MEDS: (Novolin R) Insulin Human Regular 100 units/ml vial SC SCH ×4 (08:30→21:30)
--- NOTE | 2018-02-24 08:35 | RAD ---
PROCEDURE: Intraoperative Fluoroscopy. HISTORY: Tibia and fibula fracture repair FINDINGS: Fluoroscopic assistance was provided for fracture repair. Please refer to the operative report from JEFFREY Stringer.
[2018-02-24 09:07] LABS: ALBUMIN 3.2 g/dL (3.5-5.0); ALT/SGPT 19 U/L (9-52); AST/SGOT 30 U/L (14-36); BLOOD UREA NITROGEN 11 mg/dL (7-17); CALCIUM 8.5 mg/dl (8.6-10.4); GFR AFRICAN-AMERICAN > 60; GFR NON-AFRICAN AMERICAN > 60
[2018-02-24] MEDS: Saccharomyces Boulardi 250 mg Cap PO SCH ×2 (10:22→17:43)
[2018-02-24] MEDS: Pantoprazole 40 mg EC Tab PO SCH (10:22)
--- NOTE | 2018-02-24 11:07 | CP.PCM.PN ---
Subjective - Date & Time of Evaluation Date of Evaluation: 02/24/18 Time of Evaluation: 09:15 - Subjective Subjective: Podiatry Progress Note- Dr. Sierra 77 yo female patient 1 day s/p closed reduction at bedside with subsequent ORIF of R ankle fracture and primary closure of R ankle laceration. Pt is seen resting in the bedside chair at time of visit. She does complain of a great deal of pain to the leg today but does say the current pain management regimen is helping her. Denies f/n/v/c/sob/cp/weakness or dizziness at this time. Says she has been using the incentive spirometer but not every hour. Denies any acute events overnight. Objective - Vital Signs/Intake and Output Vital Signs (last 24 hours): Temp Pulse Resp BP Pulse Ox 98.6 F 94 H 20 157/80 H 95 02/24/18 10:10 02/24/18 10:10 02/24/18 10:10 02/24/18 10:10 02/24/18 10:10 Intake and Output: 02/24/18 02/24/18 06:59 18:59 Intake Total 1150 Output Total 650 Balance 500 - Medications Medications: Current Medications Albuterol/Ipratropium (Duoneb 3 Mg/0.5 Mg (3 Ml) Ud) 3 ml INH RQ6 PRN PRN Reason: Shortness of Breath Dextrose (Dextrose 50% Inj) 0 ml IV STAT PRN; Protocol PRN Reason: Hypoglycemia Protocol Dextrose (Glutose 15) 0 gm PO ONCE PRN; Protocol PRN Reason: Hypoglycemia Protocol Docusate Sodium (Colace) 100 mg PO BID [facility] Last Admin: 02/24/18 10:22 Dose: 100 mg Glucagon (Glucagen Diagnostic Kit) 0 mg IM STAT PRN; Protocol PRN Reason: Hypoglycemia Protocol Heparin Sodium (Porcine) (Heparin) 5,000 units SC Q8 [facility] Hydromorphone HCl (Dilaudid) 0.5 mg IVP Q4H PRN PRN Reason: Pain, severe (8-10) Last Admin: 02/24/18 06:19 Dose: 0.5 mg Dextrose (Dextrose 5% In Water 1000 Ml) 1,000 mls @ 0 mls/hr IV .Q0M PRN; Protocol; Per Protocol PRN Reason: Hypoglycemia Protocol Vancomycin/Sodium Chloride (Vancomycin 1 Gm/Ns 200 Ml) 1 gm in 200 mls @ 133.333 mls/hr IVPB Q12H [facility] PRN Reason: Protocol Stop: 02/28/18 11:01 Last Admin: 02/23/18 23:50 Dose: 133.333 mls/hr Piperacillin Sod/Tazobactam Sod (Zosyn 3.375 Gm Iv Premix) 3.375 gm in 50 mls @ 100 mls/hr IVPB Q6H [facility] PRN Reason: Protocol Last Admin: 02/24/18 10:12 Dose: 100 mls/hr Insulin Human Regular (Novolin R) 0 unit SC ACHS [facility] PRN Reason: Protocol Last Admin: 02/24/18 08:30 Dose: 1 unit Losartan Potassium (Cozaar) 50 mg PO Q12H [facility] Last Admin: 02/24/18 10:22 Dose: 50 mg Morphine Sulfate (Morphine) 1 mg IVP Q4 PRN PRN Reason: Pain, moderate (4-7) Last Admin: 02/24/18 10:12 Dose: 1 mg Ondansetron HCl (Zofran Inj) 4 mg IVP Q6H PRN PRN Reason: Nausea/Vomiting Pantoprazole Sodium (Protonix Ec Tab) 40 mg PO DAILY [facility] Last Admin: 02/24/18 10:22 Dose: 40 mg Pregabalin (Lyrica) 25 mg PO HS [facility] Last Admin: 02/23/18 22:41 Dose: Not Given Saccharomyces Boulardii (Florastor) 250 mg PO BID [facility] Last Admin: 02/24/18 10:22 Dose: 250 mg - Labs Labs: 02/24/18 06:03 02/24/18 06:03 PT 10.2 SECONDS (9.7-12.2) 02/23/18 01:52 INR 0.9 02/23/18 01:52 APTT 32 SECONDS (21-34) 02/23/18 01:52 - Constitutional Appears: Non-toxic, No Acute Distress - Extremities Exam Extremities Exam: absent: Calf Tenderness Additional comments: RLE exam: AO splint appears c/d/i with neg strikethrough to outer bandage VASC- DP/PT pulses are fully palpable, cap refill < 3 sec to all digits, skin temp runs warm to warm, minimal pedal edema is appreciated NEURO- gross and protective pedal sensation are intact DERM- there does appear to be scant sanguinous drainage to inner bandage with neg active bleeding, surgical sites (medial and lateral malleoli) appear well- coapted with no evidence of dehiscence, neg erythema, neg fx blisters, neg signs infection MSK- tenderness to palpation of medial and lateral malleoli and on medial and lateral gutters, pt able to wiggle all toes freely, rearfoot exam and MMT deferred due to post-op condition - Neurological Exam Neurological Exam: Alert, Awake, Oriented x3 - Psychiatric Exam Psychiatric exam: Anxious Assessment and Plan - Assessment and Plan (Free Text) Assessment: 77 yo female patient POD#1 closed reduction at bedside of R open ankle fracture , ORIF R open ankle fx, primary closure of laceration R ankle Plan: Pt S/E at the bedside Plan discussed with attending Dr. Sierra in detail chart, labs and vitals reviewed: afebrile, neg leukocytosis New dressing applied with xerform gauze, betadine soaked gauze, 4x4 gauze, ABD, kerlix, well-padded AO splint was reapplied c/w strict NWB to RLE, elevate leg (toes to nose), ice behind knee patient reminded of importance of strict NWB may participate in PT in bed, but may not ambulate at this time. c/w IV abx, c/w current pain meds c/w incentive spirometer (pt encouraged to use at least once/hour) most likely will need MIC stable per podiatry
--- NOTE | 2018-02-24 11:27 | CARD ---
APPROVED REPORT EXAM: Two-dimensional and M-mode echocardiogram with Doppler and color Doppler. Other Information Quality : Limited TDSRhythm : INDICATION Pulmonary Hypertention Non STEMI Aortic Stenosis 2D DIMENSIONS IVSd1.0 (0.7-1.1cm)LVDd4.0 (3.9-5.9cm) LVOT Diameter2.0 (1.8-2.4cm)PWd1.1 (0.7-1.1cm) LVDs2.5 (2.5-4.0cm)FS (%) 36.4 % LVEF (%)66.7 (>50%) M-Mode DIMENSIONS Left Atrium (MM)4.72 (2.5-4.0cm)Aortic Root3.06 (2.2-3.7cm) Aortic Cusp Exc.0.81 (1.5-2.0cm) Aortic Valve AoV Peak Lwilrutg419.9cm/sAoV VTI72.6cmAO Peak GR.48mmHg LVOT Peak Vuxbmwtq348.8cm/sLVOT VTI24.02cmAO Mean GR.31mmHg VALERIE (VMAX)0.73sg0DKF (VTI)1.00cm2 Mitral Valve MV E Hndvapsh736.9cm/sMV A Wazlpfma157.4cm/sE/A ratio1.3 TDI E/Lateral E'0.0E/Medial E'0.0 Tricuspid Valve TR Peak Wujuyvqv616cz/sTR Peak Gr.34mmHg LEFT VENTRICLE The left ventricle is normal size. There is normal left ventricular wall thickness. The Ejection Fraction is 60-65%. There is normal LV segmental wall motion. Transmitral Doppler flow pattern is Grade II-pseudonormal filling dynamics. The left atrial pressure is mildly elevated. RIGHT VENTRICLE The right ventricle is normal size. The right ventricular systolic function is normal. ATRIA The left atrium is moderately dilated. The right atrium size is normal. The interatrial septum is intact with no evidence for an atrial septal defect. AORTIC VALVE aortic valve not well seen but appears trileaflet & calcified. No aortic regurgitation is present. Calculated aortic valve area is 1.0 cm2 with maximum pressure gradient of 48 mmHg and mean pressure gradient of 31 mmHg. MITRAL VALVE Mitral annular calcification is mild to moderate. Mitral regurgitation is mild. TRICUSPID VALVE The tricuspid valve is normal in structure. There is mild tricuspid regurgitation. Right ventricular systolic pressure is estimated at 34 mmHg. There is no pulmonary hypertension. PULMONIC VALVE pv not well seen GREAT VESSELS The aortic root is normal size. The aortic root displays mild to moderate sclerocalcific changes of the aortic root. ivc not saeen PERICARDIAL EFFUSION There is no pericardial effusion. <Conclusion> The left ventricle is normal size. There is normal left ventricular wall thickness. The Ejection Fraction is 60-65%. Transmitral Doppler flow pattern is Grade II-pseudonormal filling dynamics. The left atrial pressure is mildly elevated. The left atrium is moderately dilated. aortic valve not well seen but appears trileaflet & calcified. Mitral annular calcification is mild to moderate. Mitral regurgitation is mild. There is mild tricuspid regurgitation. Right ventricular systolic pressure is estimated at 34 mmHg. There is no pulmonary hypertension. The aortic root is normal size. The aortic root displays mild to moderate sclerocalcific changes of the aortic root.
[2018-02-24] MEDS: Vancomycin 1 gm/NS 200 ml 1 GM/200 ML BAG IVPB SCH ×2 (12:00→22:06)
--- NOTE | 2018-02-24 14:57 | RAD ---
PROCEDURE: Right Ankle Radiographs. HISTORY: s/p right ankle fx surgery COMPARISON: Right ankle radiographs dated 02/23/2018 FINDINGS: Distal right lower extremity cast no limits evaluation of fine bony detail. There has been interval open reduction internal plate and screw fixation of the distal fibular fracture. Syndesmotic screws are also present. Postsurgical changes in the adjacent soft tissues are present. No new fracture or other significant interval change is identified. IMPRESSION: Interval ORIF of distal fibular fracture.
--- NOTE | 2018-02-24 17:05 | PN ---
DATE: LOCATION: [facility], bed B. SUBJECTIVE: This is a 77-year-old female seen and examined in rounds with family member at the bedside, initially for GI consultation on 02/23/2018, reexamined again today, again in the presence of her family members complaining of some rectal pain, but no bleeding, no chest pain or palpitation, but lower back pain. The entire chart is reviewed, including but not limited to the most recent lab and radiology study results, current and the previous medication list, current and the previous medical events. Case discussed with the staff at length. Today's lab showed white blood cells of 11.1, hemoglobin 10.3, hematocrit 30.9, blood glucose level 209. Calcium 8.5, and albumin 3.2. PHYSICAL EXAMINATION: GENERAL: A 77-year-old female with low-grade temperature of 99.5, pulse of 94, respiratory rate of 20 to 22, blood pressure 152/86. HEENT: Showed pale, dry oral mucous membranes. Nonicteric sclerae. LUNGS: Few scattered crepitations. Decreased air entry at bases. HEART: Positive S1 and S2. ABDOMEN: Soft, bowel sounds are present. No mass or organomegaly. No rebound tenderness or guarding. RECTAL: Positive tone, with tenderness. Positive anal fissure with internal hemorrhoids. EXTREMITIES: With right lower extremities covered with cast, but no edema, clubbing, or cyanosis. NEUROLOGIC: No reported new neurological deficits, sensory or motor. IMPRESSION: 1. Anal fissure. 2. Right lower extremity infection, pretibial surgically. 3. Mild anemia, most likely secondary to chronic disease. SUGGESTION: 1. Anal cream. 2. Canasa suppository. 3. Surgical reevaluation for hemorrhoidectomy. 4. The patient may need colonoscopy when she is more stable clinically. Alondra Harper MD
--- NOTE | 2018-02-24 23:29 | CP.PCM.PN ---
Subjective - Date & Time of Evaluation Date of Evaluation: 02/24/18 Time of Evaluation: 17:20 - Subjective Subjective: Patient seen and evaluated Denies chest pain and dyspnea Objective - Vital Signs/Intake and Output Vital Signs (last 24 hours): Temp Pulse Resp BP Pulse Ox 98.9 F 99 H 20 140/82 96 02/24/18 15:24 02/24/18 15:30 02/24/18 15:24 02/24/18 17:56 02/24/18 15:24 Intake and Output: 02/24/18 02/25/18 18:59 06:59 Intake Total 600 650 Output Total 450 650 Balance 150 0 - Medications Medications: Current Medications Albuterol/Ipratropium (Duoneb 3 Mg/0.5 Mg (3 Ml) Ud) 3 ml INH RQ6 PRN PRN Reason: Shortness of Breath Dextrose (Dextrose 50% Inj) 0 ml IV STAT PRN; Protocol PRN Reason: Hypoglycemia Protocol Dextrose (Glutose 15) 0 gm PO ONCE PRN; Protocol PRN Reason: Hypoglycemia Protocol Docusate Sodium (Colace) 100 mg PO BID [facility] Last Admin: 02/24/18 17:43 Dose: 100 mg Glucagon (Glucagen Diagnostic Kit) 0 mg IM STAT PRN; Protocol PRN Reason: Hypoglycemia Protocol Heparin Sodium (Porcine) (Heparin) 5,000 units SC Q8 [facility] Last Admin: 02/24/18 21:21 Dose: Not Given Hydromorphone HCl (Dilaudid) 0.5 mg IVP Q4H PRN PRN Reason: Pain, severe (8-10) Last Admin: 02/24/18 22:02 Dose: 0.5 mg Dextrose (Dextrose 5% In Water 1000 Ml) 1,000 mls @ 0 mls/hr IV .Q0M PRN; Protocol; Per Protocol PRN Reason: Hypoglycemia Protocol Vancomycin/Sodium Chloride (Vancomycin 1 Gm/Ns 200 Ml) 1 gm in 200 mls @ 133.333 mls/hr IVPB Q12H [facility] PRN Reason: Protocol Stop: 02/28/18 11:01 Last Admin: 02/24/18 22:06 Dose: 133.333 mls/hr Piperacillin Sod/Tazobactam Sod (Zosyn 3.375 Gm Iv Premix) 3.375 gm in 50 mls @ 100 mls/hr IVPB Q6H [facility] PRN Reason: Protocol Last Admin: 02/24/18 21:23 Dose: 100 mls/hr Insulin Human Regular (Novolin R) 0 unit SC ACHS [facility] PRN Reason: Protocol Last Admin: 02/24/18 21:30 Dose: Not Given Losartan Potassium (Cozaar) 50 mg PO Q12H [facility] Last Admin: 02/24/18 21:22 Dose: Not Given Morphine Sulfate (Morphine) 1 mg IVP Q4 PRN PRN Reason: Pain, moderate (4-7) Last Admin: 02/24/18 15:31 Dose: 1 mg Ondansetron HCl (Zofran Inj) 4 mg IVP Q6H PRN PRN Reason: Nausea/Vomiting Pantoprazole Sodium (Protonix Ec Tab) 40 mg PO DAILY [facility] Last Admin: 02/24/18 10:22 Dose: 40 mg Pregabalin (Lyrica) 25 mg PO HS [facility] Last Admin: 02/24/18 22:08 Dose: Not Given Saccharomyces Boulardii (Florastor) 250 mg PO BID [facility] Last Admin: 02/24/18 17:43 Dose: 250 mg - Labs Labs: 02/24/18 06:03 02/24/18 06:03 PT 10.2 SECONDS (9.7-12.2) 02/23/18 01:52 INR 0.9 02/23/18 01:52 APTT 32 SECONDS (21-34) 02/23/18 01:52
[2018-02-25] MEDS: Piperacill/Tazo 3.375gm in Dex 3.375 GM/50 ML BAG IVPB SCH ×4 (04:33→22:51)
[2018-02-25 07:21] LABS: BASO # 0.1 K/uL (0.0-0.2); BASO % 0.6 % (0.0-2.0); EOS # 0.1 K/uL (0.0-0.7); EOS % 0.6 % (0.0-4.0); HEMOGLOBIN 9.9 g/dL (11.0-16.0); LYMPH # 1.5 K/uL (1.0-4.3); LYMPH % 14.4 % (20.0-40.0); MEAN CELL VOLUME 82.2 fL (81.0-99.0); MEAN CORPUSCULAR HGB CONC 34.1 g/dL (33.0-37.0); MEAN PLATELET VOLUME 8.7 fL (7.2-11.7); MONO # 1.2 K/uL (0.0-0.8); MONO % 11.8 % (0.0-10.0); NEUT # 7.6 K/uL (1.8-7.0); NEUT % 72.6 % (50.0-75.0); RBC 3.54 Mil/uL (3.80-5.20); RED CELL DISTRIBUTION WIDTH 13.7 % (11.5-14.5); WHITE BLOOD COUNT 10.5 K/uL (4.8-10.8)
--- NOTE | 2018-02-25 07:25 | CP.PCM.PN ---
<Chriss Martin - Last Filed: 02/25/18 11:20> Subjective - Date & Time of Evaluation Date of Evaluation: 02/25/18 Time of Evaluation: 07:24 - Subjective Subjective: PGY-[address] Mignon Sierra. No acute events noted overnight. Patient s/p closed reduction with podiatry and s/p ORIF of right ankle fibular fracture POD #2. She said her pain is controlled. She denied chest pain, shortness of breath, excessive bleeding from wound site, nausea, vomiting, fevers. Objective - Vital Signs/Intake and Output Vital Signs (last 24 hours): Temp Pulse Resp BP Pulse Ox 98.8 F 92 H 20 149/76 98 02/25/18 04:15 02/25/18 04:15 02/25/18 04:15 02/25/18 04:15 02/25/18 04:15 Intake and Output: 02/25/18 02/25/18 06:59 18:59 Intake Total 650 Output Total 1250 Balance -600 - Medications Medications: Current Medications Albuterol/Ipratropium (Duoneb 3 Mg/0.5 Mg (3 Ml) Ud) 3 ml INH RQ6 PRN PRN Reason: Shortness of Breath Dextrose (Dextrose 50% Inj) 0 ml IV STAT PRN; Protocol PRN Reason: Hypoglycemia Protocol Dextrose (Glutose 15) 0 gm PO ONCE PRN; Protocol PRN Reason: Hypoglycemia Protocol Docusate Sodium (Colace) 100 mg PO BID [facility] Last Admin: 02/24/18 17:43 Dose: 100 mg Glucagon (Glucagen Diagnostic Kit) 0 mg IM STAT PRN; Protocol PRN Reason: Hypoglycemia Protocol Heparin Sodium (Porcine) (Heparin) 5,000 units SC Q8 [facility] Last Admin: 02/25/18 06:31 Dose: Not Given Hydromorphone HCl (Dilaudid) 0.5 mg IVP Q4H PRN PRN Reason: Pain, severe (8-10) Last Admin: 02/24/18 22:02 Dose: 0.5 mg Dextrose (Dextrose 5% In Water 1000 Ml) 1,000 mls @ 0 mls/hr IV .Q0M PRN; Protocol; Per Protocol PRN Reason: Hypoglycemia Protocol Vancomycin/Sodium Chloride (Vancomycin 1 Gm/Ns 200 Ml) 1 gm in 200 mls @ 133.333 mls/hr IVPB Q12H [facility] PRN Reason: Protocol Stop: 02/28/18 11:01 Last Admin: 02/24/18 22:06 Dose: 133.333 mls/hr Piperacillin Sod/Tazobactam Sod (Zosyn 3.375 Gm Iv Premix) 3.375 gm in 50 mls @ 100 mls/hr IVPB Q6H [facility] PRN Reason: Protocol Last Admin: 02/25/18 04:33 Dose: 100 mls/hr Insulin Human Regular (Novolin R) 0 unit SC ACHS [facility] PRN Reason: Protocol Last Admin: 02/24/18 21:30 Dose: Not Given Losartan Potassium (Cozaar) 50 mg PO Q12H [facility] Last Admin: 02/24/18 21:22 Dose: Not Given Morphine Sulfate (Morphine) 1 mg IVP Q4 PRN PRN Reason: Pain, moderate (4-7) Last Admin: 02/24/18 15:31 Dose: 1 mg Ondansetron HCl (Zofran Inj) 4 mg IVP Q6H PRN PRN Reason: Nausea/Vomiting Pantoprazole Sodium (Protonix Ec Tab) 40 mg PO DAILY [facility] Last Admin: 02/24/18 10:22 Dose: 40 mg Pregabalin (Lyrica) 25 mg PO HS [facility] Last Admin: 02/24/18 22:08 Dose: Not Given Saccharomyces Boulardii (Florastor) 250 mg PO BID [facility] Last Admin: 02/24/18 17:43 Dose: 250 mg - Labs Labs: 02/24/18 06:03 02/24/18 06:03 PT 10.2 SECONDS (9.7-12.2) 02/23/18 01:52 INR 0.9 02/23/18 01:52 APTT 32 SECONDS (21-34) 02/23/18 01:52 - Additional Findings Additional findings: - Constitutional Appears: No Acute Distress - Head Exam Head Exam: ATRAUMATIC, NORMAL INSPECTION - Eye Exam Eye Exam: EOMI, Normal appearance - ENT Exam ENT Exam: Mucous Membranes Moist - Respiratory Exam Respiratory Exam: Clear to Auscultation Bilateral, NORMAL BREATHING PATTERN - Cardiovascular Exam Cardiovascular Exam: REGULAR RHYTHM, RRR, +S1, +S2, Systolic Murmur. absent: JVD - GI/Abdominal Exam GI & Abdominal Exam: Normal Bowel Sounds, Soft. absent: Tenderness Additional comments: obese - Rectal Exam Additional comments: No gross blood seen on rectal. Discoloration 3 inches lateral to anus on right could have been site of previous fissure. No other evidence of fissure seen. No abnormal masses palpated. Skin tag inferior to right gluteal fold. - Extremities Exam Additional comments: Right LE cast in place, good dorsalis pedis pulses b/l - Neurological Exam Neurological exam: Alert, Oriented x3, right lower extremity sensations intact Assessment and Plan - Assessment and Plan (Free Text) Assessment: Right Ankle open fracture with Air in Soft Tissue Ortho Consult: Dr. Solorio --> help appreciated Infectious Disease consult, Dr Campbell * Agrees with Abx selection Podiatry consult, Dr Sierra * s/p closed reduction with podiatry afternoon 02/23/18, DPM Dr Willard * s/p 1.) ORIF of right ankle fibular fracture and syndesmotic injury. 2.) Irrigation and debridement of right ankle open fracture wound with primary closure. Performed evening 02/23/[address] Sierra. Keep right leg elevated Non weight bearing to right leg Ice to right leg Imaging: Ankle XRAY: Fractures of the distal right tibia and fibula with associated subluxation Chest XRAY: No active disease Lower extremity CT: Acute fractures of distal fibula and posterior malleolus of distal tibia. Disruption of ankle mortise with medial widening. Additional fractures as described in full report. Meds: Zosyn 3.375g IVP Q6H Vancomcyin 1.5g IVPB Q12H * vanco trough checked on 02/24 @10:30PM was 9.9 before 4th dose -> increased vanco 1.5g IVPB Q12H * repeat vanco trough 02/26 @10:30PM Florastor 250mg PO BID Dilaudid 0.5mg IVP Q4H PRN for severe pain Morphine 1mg IVP Q4H PRN for moderate pain Colace 100mg PO BID NS 70cc/hr History of DM ISS Accuchecks Hypoglycemia protocol A1c 6.9 Aortic Stenosis with Pulmonary HTN Exertional dyspnea Cardio Consult: Dr. Wu --> help appreciated * Spoke with Dr. Wu and stated repeat ECHO can be completed as routine * due to patient's chronic medical conditions such as exertional dyspnea, aortic stenosis and pulmonary HTN patient is a moderate to high risk. ECHO (12/02/2016): left ventricular ejection fraction within the normal range. Moderate valvular aortic stenosis. Mild to moderate tricuspid regurgitation. f/u ECHO Lipid Panel NORMAL Meds: Duoneb 3ml INH RQ6 PRN for shortness of breath Hx of Anal Fissure GI consulted, Dr Dennison * Patient may need colonoscopy when she is more stable clinically Stool occult performed 02/24/18 which was NEGATIVE No gross blood seen on rectal. Discoloration 3 inches lateral to anus on right could have been site of previous fissure. No evidence of fissure seen. No abnormal masses palpated. Skin tag inferior to right gluteal fold. F/U CEA Meds: Will hold off on any medications (such as anusol, canasa) at this time as patient without any active issues 1st Degree Heart Block on EKG Prolonged QTc 473 Bilateral Feet Neuropathy Lyrica 25 mg PO HS HTN Continue home medications Losartan 50mg PO BID Lumbar Spinal Stenosis s/p spinal surgery 2018 With urinary incontinence since spinal surgery 2018 Inserted gallegos Meds: Cont home med Pregabalin 25mg PO HS Prophylaxis Protonix 40mg PO QD Heparin 5000u SC Q8H Vegetarian Diet <Dion Sierra - Last Filed: 02/25/18 18:48> Objective - Vital Signs/Intake and Output Vital Signs (last 24 hours): Temp Pulse Resp BP Pulse Ox 99.4 F 93 H 20 150/79 97 02/25/18 15:00 02/25/18 15:00 02/25/18 15:00 02/25/18 15:00 02/25/18 15:00 Intake and Output: 02/25/18 02/25/18 06:59 18:59 Intake Total 820 650 Output Total 1250 700 Balance -430 -50 - Medications Medications: Current Medications Albuterol/Ipratropium (Duoneb 3 Mg/0.5 Mg (3 Ml) Ud) 3 ml INH RQ6 PRN PRN Reason: Shortness of Breath Dextrose (Dextrose 50% Inj) 0 ml IV STAT PRN; Protocol PRN Reason: Hypoglycemia Protocol Dextrose (Glutose 15) 0 gm PO ONCE PRN; Protocol PRN Reason: Hypoglycemia Protocol Docusate Sodium (Colace) 100 mg PO BID [facility] Last Admin: 02/25/18 18:10 Dose: 100 mg Glucagon (Glucagen Diagnostic Kit) 0 mg IM STAT PRN; Protocol PRN Reason: Hypoglycemia Protocol Heparin Sodium (Porcine) (Heparin) 5,000 units SC Q8 [facility] Last Admin: 02/25/18 13:32 Dose: Not Given Hydromorphone HCl (Dilaudid) 0.5 mg IVP Q4H PRN PRN Reason: Pain, severe (8-10) Last Admin: 02/24/18 22:02 Dose: 0.5 mg Dextrose (Dextrose 5% In Water 1000 Ml) 1,000 mls @ 0 mls/hr IV .Q0M PRN; Protocol; Per Protocol PRN Reason: Hypoglycemia Protocol Piperacillin Sod/Tazobactam Sod (Zosyn 3.375 Gm Iv Premix) 3.375 gm in 50 mls @ 100 mls/hr IVPB Q6H [facility] PRN Reason: Protocol Last Admin: 02/25/18 17:07 Dose: 100 mls/hr Vancomycin HCl 1,500 mg/ (Sodium Chloride) 500 mls @ 333.333 mls/hr IVPB Q12H [facility] PRN Reason: Protocol Last Admin: 02/25/18 12:52 Dose: 333.333 mls/hr Insulin Human Regular (Novolin R) 0 unit SC ACHS [facility] PRN Reason: Protocol Last Admin: 02/25/18 16:32 Dose: Not Given Losartan Potassium (Cozaar) 50 mg PO Q12H [facility] Last Admin: 02/25/18 10:01 Dose: 50 mg Morphine Sulfate (Morphine) 1 mg IVP Q4 PRN PRN Reason: Pain, moderate (4-7) Last Admin: 02/25/18 10:03 Dose: 1 mg Ondansetron HCl (Zofran Inj) 4 mg IVP Q6H PRN PRN Reason: Nausea/Vomiting Pantoprazole Sodium (Protonix Ec Tab) 40 mg PO DAILY [facility] Last Admin: 02/25/18 10:01 Dose: 40 mg Pregabalin (Lyrica) 25 mg PO HS [facility] Last Admin: 02/24/18 22:08 Dose: Not Given Saccharomyces Boulardii (Florastor) 250 mg PO BID [facility] Last Admin: 02/25/18 18:11 Dose: 250 mg - Labs Labs: 02/25/18 07:10 02/25/18 07:10 PT 10.2 SECONDS (9.7-12.2) 02/23/18 01:52 INR 0.9 02/23/18 01:52 APTT 32 SECONDS (21-34) 02/23/18 01:52 Attending/Attestation - Attestation I have personally seen and examined this patient.: Yes I have fully participated in the care of the patient.: Yes I have reviewed all pertinent clinical information, including history, physical exam and plan: Yes Notes (Text): 02/25/18 18:40 Patient was seen and examined at 11:45 AM. Exam, assessment and plan were gone over with the resident. Also on Exam: Holosystolic Murmur heard loudest at the Right Second Intercostal Space We will continue the Vancomycin and Zosyn for 3 days Post Op closure of the open fracture, which will be 02/26/18. So we will stop both Vancomycin and Zosyn after 02/26/18. Patient will need anticoagulation for VTE prophylaxis for 35 days S/P ORIF of Right Ankle Fracture 02/23/18. She is currently on Heparin 5,000 Units SC Q8H. This can be changed to Lovenox once she goes home from [facility] if she is able to administer it herself. If not then she will have to continue Aspirin 81 mg PO 2x/day until 03/30/18. Patient assures me that she is performing the incentive spirometry 10x every hour while awake. Spoke with Generating Station Mechanic Maria Antonia and she is awaiting insurance authorization for [facility]. Patient will also likely need home visiting nurse which should be arranged through [facility] upon her discharge there. Dion Sierra D.O.
[2018-02-25 07:34] LABS: ALB/GLOB RATIO 0.9 (1.0-2.1); ALBUMIN 3.1 g/dL (3.5-5.0); ALT/SGPT 15 U/L (9-52); AST/SGOT 24 U/L (14-36); BLOOD UREA NITROGEN 9 mg/dL (7-17); CALCIUM 8.3 mg/dl (8.6-10.4); GFR AFRICAN-AMERICAN > 60; GFR NON-AFRICAN AMERICAN > 60
[2018-02-25] MEDS: (Novolin R) Insulin Human Regular 100 units/ml vial SC SCH ×4 (08:13→21:36)
[2018-02-25] MEDS: Saccharomyces Boulardi 250 mg Cap PO SCH ×2 (10:01→18:11)
[2018-02-25] MEDS: Pantoprazole 40 mg EC Tab PO SCH (10:01)
[2018-02-25] MEDS: Morphine 4 MG/ML VIAL IVP PRN (10:03)
--- NOTE | 2018-02-25 10:41 | CP.PCM.PN ---
Subjective - Date & Time of Evaluation Date of Evaluation: 02/25/18 Time of Evaluation: 08:00 - Subjective Subjective: Podiatry Progress Note- Dr. Sierra 77 yo female pt POD#2 ORIF R ankle fx with primary closure R ankle laceration. Pt is seen sitting in bed with R leg elevated on 2 pillows. Pt does report pain to the ankle, however does say pain medications are helping. Has been using the incentive spirometer. Has been compliant with NWB to the RLE and on bedrest. She denies any calf pain, denies any numbness or tingling to the LE. Denies f/n/ v/c/sob/cp however does say that she has a bit of a cough today, denies any production. Offers no further complaints. Objective - Vital Signs/Intake and Output Vital Signs (last 24 hours): Temp Pulse Resp BP Pulse Ox 98.6 F 85 18 134/74 96 02/25/18 07:35 02/25/18 10:00 02/25/18 07:35 02/25/18 10:00 02/25/18 07:35 Intake and Output: 02/25/18 02/25/18 06:59 18:59 Intake Total 820 Output Total 1250 Balance -430 - Medications Medications: Current Medications Albuterol/Ipratropium (Duoneb 3 Mg/0.5 Mg (3 Ml) Ud) 3 ml INH RQ6 PRN PRN Reason: Shortness of Breath Dextrose (Dextrose 50% Inj) 0 ml IV STAT PRN; Protocol PRN Reason: Hypoglycemia Protocol Dextrose (Glutose 15) 0 gm PO ONCE PRN; Protocol PRN Reason: Hypoglycemia Protocol Docusate Sodium (Colace) 100 mg PO BID [facility] Last Admin: 02/25/18 10:01 Dose: 100 mg Glucagon (Glucagen Diagnostic Kit) 0 mg IM STAT PRN; Protocol PRN Reason: Hypoglycemia Protocol Heparin Sodium (Porcine) (Heparin) 5,000 units SC Q8 [facility] Last Admin: 02/25/18 06:31 Dose: Not Given Hydromorphone HCl (Dilaudid) 0.5 mg IVP Q4H PRN PRN Reason: Pain, severe (8-10) Last Admin: 02/24/18 22:02 Dose: 0.5 mg Dextrose (Dextrose 5% In Water 1000 Ml) 1,000 mls @ 0 mls/hr IV .Q0M PRN; Protocol; Per Protocol PRN Reason: Hypoglycemia Protocol Vancomycin/Sodium Chloride (Vancomycin 1 Gm/Ns 200 Ml) 1 gm in 200 mls @ 133.333 mls/hr IVPB Q12H [facility] PRN Reason: Protocol Stop: 02/28/18 11:01 Last Admin: 02/24/18 22:06 Dose: 133.333 mls/hr Piperacillin Sod/Tazobactam Sod (Zosyn 3.375 Gm Iv Premix) 3.375 gm in 50 mls @ 100 mls/hr IVPB Q6H [facility] PRN Reason: Protocol Last Admin: 02/25/18 10:03 Dose: 100 mls/hr Insulin Human Regular (Novolin R) 0 unit SC ACHS [facility] PRN Reason: Protocol Last Admin: 02/25/18 08:13 Dose: Not Given Losartan Potassium (Cozaar) 50 mg PO Q12H [facility] Last Admin: 02/25/18 10:01 Dose: 50 mg Morphine Sulfate (Morphine) 1 mg IVP Q4 PRN PRN Reason: Pain, moderate (4-7) Last Admin: 02/25/18 10:03 Dose: 1 mg Ondansetron HCl (Zofran Inj) 4 mg IVP Q6H PRN PRN Reason: Nausea/Vomiting Pantoprazole Sodium (Protonix Ec Tab) 40 mg PO DAILY [facility] Last Admin: 02/25/18 10:01 Dose: 40 mg Pregabalin (Lyrica) 25 mg PO HS [facility] Last Admin: 02/24/18 22:08 Dose: Not Given Saccharomyces Boulardii (Florastor) 250 mg PO BID [facility] Last Admin: 02/25/18 10:01 Dose: 250 mg - Labs Labs: 02/25/18 07:10 02/25/18 07:10 PT 10.2 SECONDS (9.7-12.2) 02/23/18 01:52 INR 0.9 02/23/18 01:52 APTT 32 SECONDS (21-34) 02/23/18 01:52 - Constitutional Appears: Non-toxic, No Acute Distress - Extremities Exam Extremities Exam: absent: Calf Tenderness Additional comments: RLE exam: AO splint appears c/d/i with no strikethrough noted neurovascular status is intact with brisk cap refill time to all digits, can wiggle all toes - Neurological Exam Neurological Exam: Alert, Awake, Oriented x3 - Psychiatric Exam Psychiatric exam: Normal Affect, Normal Mood Assessment and Plan - Assessment and Plan (Free Text) Assessment: 77 yo female patient POD#2 closed reduction at bedside of R open ankle fracture , ORIF R open ankle fx, primary closure of laceration R ankle Plan: Pt S/E at the bedside Plan discussed with attending Dr. Sierra in detail chart, labs and vitals reviewed: afebrile, neg leukocytosis AO splint is to be left intact today c/w NWB to RLE, bedrest, elevate RLE at all times, ice behind knee morphine and dialudid on board for pain control encourage incentive spirometer use q1h c/w IV abx discussed with medicine team, will need MIC pending approval stable per podiatry, will follow
[2018-02-25] MEDS ORDERED: Potassium Chloride 20 mEq ER Tab PO ONE (11:45)
--- NOTE | 2018-02-25 13:57 | PN ---
DATE: LOCATION: [address] [place] [address] B. SUBJECTIVE: This 77-year-old female seen and examined in rounds today, was still complaining of ankle and lower extremities pain mainly in the right due to her distal fibular fracture. The patient still has intermittent periods of abdominal pain with rectal pain, but no reported active bleeding at the time of my physical examination. No reported chest pain or palpitations. Most recent lab results, however, showed drop of hemoglobin to 9.9, hematocrit 29.1, normal white blood cells, and normal platelet count, potassium 3.2, blood glucose level 132, calcium 8.3, total bilirubin 1.7, most likely secondary to physiological phenomenon, albumin 3.1. PHYSICAL EXAMINATION: GENERAL: A 77-year-old female out of bed to the chair, appeared to be awake, alert, oriented. VITAL SIGNS: Afebrile, with pulse of 80, respiratory rate 20 to 22, blood pressure 130/76. HEENT: Showed pale, dry oral mucous membranes. Mild icteric sclerae. LUNGS: Few scattered mild crepitations. Decreased air entry at bases. HEART: Positive S1 and S2. ABDOMEN: Soft with mild generalized tenderness, mildly distended. No mass or organomegaly. No rebound tenderness or guarding. EXTREMITIES: With right lower extremities soft cast. No clubbing or cyanosis. NEUROLOGIC: No reported new neurological deficits, sensory or motor. No reported new focal deficits. Peripheral pulses are decreased bilaterally, but positive. IMPRESSION: 1. Right lower extremities fracture, treated surgically. 2. Anal fissure by history. 3. Anemia, probably secondary to chronic disease as there is no evidence of active bleeding. SUGGESTIONS: 1. Agree with your plan. 2. Anusol cream for rectal apply. 3. Surgical evaluation for potential hemorrhoidectomy as needed. 4. Cancer markers. 5. The patient will need colonoscopy; however, when she is more stable clinically, there is no need for any aggressive GI workup in the meantime and further recommendations to follow. Alondra Harper MD
[2018-02-25] MEDS ORDERED: Hydrocortisone 2.5% Rectal Cream(30 gm) PR SCH (18:00)
--- NOTE | 2018-02-25 18:18 | CP.PCM.PN ---
Subjective - Date & Time of Evaluation Date of Evaluation: 02/25/18 Time of Evaluation: 09:00 - Subjective Subjective: afeb intra-op cultures pending cont iv antibiotics Objective - Vital Signs/Intake and Output Vital Signs (last 24 hours): Temp Pulse Resp BP Pulse Ox 99.4 F 93 H 20 150/79 97 02/25/18 15:00 02/25/18 15:00 02/25/18 15:00 02/25/18 15:00 02/25/18 15:00 Intake and Output: 02/25/18 02/25/18 06:59 18:59 Intake Total 820 650 Output Total 1250 700 Balance -430 -50 - Medications Medications: Current Medications Albuterol/Ipratropium (Duoneb 3 Mg/0.5 Mg (3 Ml) Ud) 3 ml INH RQ6 PRN PRN Reason: Shortness of Breath Dextrose (Dextrose 50% Inj) 0 ml IV STAT PRN; Protocol PRN Reason: Hypoglycemia Protocol Dextrose (Glutose 15) 0 gm PO ONCE PRN; Protocol PRN Reason: Hypoglycemia Protocol Docusate Sodium (Colace) 100 mg PO BID [facility] Last Admin: 02/25/18 18:10 Dose: 100 mg Glucagon (Glucagen Diagnostic Kit) 0 mg IM STAT PRN; Protocol PRN Reason: Hypoglycemia Protocol Heparin Sodium (Porcine) (Heparin) 5,000 units SC Q8 [facility] Last Admin: 02/25/18 13:32 Dose: Not Given Hydromorphone HCl (Dilaudid) 0.5 mg IVP Q4H PRN PRN Reason: Pain, severe (8-10) Last Admin: 02/24/18 22:02 Dose: 0.5 mg Dextrose (Dextrose 5% In Water 1000 Ml) 1,000 mls @ 0 mls/hr IV .Q0M PRN; Protocol; Per Protocol PRN Reason: Hypoglycemia Protocol Piperacillin Sod/Tazobactam Sod (Zosyn 3.375 Gm Iv Premix) 3.375 gm in 50 mls @ 100 mls/hr IVPB Q6H [facility] PRN Reason: Protocol Last Admin: 02/25/18 17:07 Dose: 100 mls/hr Vancomycin HCl 1,500 mg/ (Sodium Chloride) 500 mls @ 333.333 mls/hr IVPB Q12H [facility] PRN Reason: Protocol Last Admin: 02/25/18 12:52 Dose: 333.333 mls/hr Insulin Human Regular (Novolin R) 0 unit SC ACHS [facility] PRN Reason: Protocol Last Admin: 02/25/18 16:32 Dose: Not Given Losartan Potassium (Cozaar) 50 mg PO Q12H [facility] Last Admin: 02/25/18 10:01 Dose: 50 mg Morphine Sulfate (Morphine) 1 mg IVP Q4 PRN PRN Reason: Pain, moderate (4-7) Last Admin: 02/25/18 10:03 Dose: 1 mg Ondansetron HCl (Zofran Inj) 4 mg IVP Q6H PRN PRN Reason: Nausea/Vomiting Pantoprazole Sodium (Protonix Ec Tab) 40 mg PO DAILY [facility] Last Admin: 02/25/18 10:01 Dose: 40 mg Pregabalin (Lyrica) 25 mg PO HS [facility] Last Admin: 02/24/18 22:08 Dose: Not Given Saccharomyces Boulardii (Florastor) 250 mg PO BID [facility] Last Admin: 02/25/18 18:11 Dose: 250 mg - Labs Labs: 02/25/18 07:10 02/25/18 07:10 PT 10.2 SECONDS (9.7-12.2) 02/23/18 01:52 INR 0.9 02/23/18 01:52 APTT 32 SECONDS (21-34) 02/23/18 01:52 - Constitutional Appears: Non-toxic, Chronically Ill - Head Exam Head Exam: NORMOCEPHALIC - Eye Exam Eye Exam: PERRL - ENT Exam ENT Exam: Mucous Membranes Dry - Neck Exam Neck Exam: absent: Lymphadenopathy - Respiratory Exam Respiratory Exam: Decreased Breath Sounds - Cardiovascular Exam Cardiovascular Exam: REGULAR RHYTHM - GI/Abdominal Exam GI & Abdominal Exam: Distended, Soft - Rectal Exam Rectal Exam: Deferred - Exam Exam: NORMAL INSPECTION - Extremities Exam Extremities Exam: absent: Pedal Edema - Back Exam Back Exam: absent: CVA tenderness (L), CVA tenderness (R) - Neurological Exam Neurological Exam: Alert, Awake Assessment and Plan (1) Open fracture of right ankle Status: Acute (2) Acute left lumbar radiculopathy Status: Acute (3) Acute lumbar radiculopathy Status: Acute (4) Ambulatory dysfunction Status: Acute (5) Anemia Status: Acute (6) Ankle pain Status: Acute
--- NOTE | 2018-02-25 20:36 | CP.PCM.PN ---
Subjective - Date & Time of Evaluation Date of Evaluation: 02/25/18 Time of Evaluation: 09:20 - Subjective Subjective: Patient seen and evaluated Comfortable s/p Right leg surgery Hx of Severe and CAD Objective - Vital Signs/Intake and Output Vital Signs (last 24 hours): Temp Pulse Resp BP Pulse Ox 99.4 F 93 H 20 150/79 97 02/25/18 15:00 02/25/18 15:00 02/25/18 15:00 02/25/18 15:00 02/25/18 15:00 Intake and Output: 02/25/18 02/26/18 18:59 06:59 Intake Total 650 Output Total 700 Balance -50 - Medications Medications: Current Medications Albuterol/Ipratropium (Duoneb 3 Mg/0.5 Mg (3 Ml) Ud) 3 ml INH RQ6 PRN PRN Reason: Shortness of Breath Dextrose (Dextrose 50% Inj) 0 ml IV STAT PRN; Protocol PRN Reason: Hypoglycemia Protocol Dextrose (Glutose 15) 0 gm PO ONCE PRN; Protocol PRN Reason: Hypoglycemia Protocol Docusate Sodium (Colace) 100 mg PO BID [facility] Last Admin: 02/25/18 18:10 Dose: 100 mg Glucagon (Glucagen Diagnostic Kit) 0 mg IM STAT PRN; Protocol PRN Reason: Hypoglycemia Protocol Heparin Sodium (Porcine) (Heparin) 5,000 units SC Q8 [facility] Last Admin: 02/25/18 13:32 Dose: Not Given Hydromorphone HCl (Dilaudid) 0.5 mg IVP Q4H PRN PRN Reason: Pain, severe (8-10) Last Admin: 02/24/18 22:02 Dose: 0.5 mg Dextrose (Dextrose 5% In Water 1000 Ml) 1,000 mls @ 0 mls/hr IV .Q0M PRN; Protocol; Per Protocol PRN Reason: Hypoglycemia Protocol Piperacillin Sod/Tazobactam Sod (Zosyn 3.375 Gm Iv Premix) 3.375 gm in 50 mls @ 100 mls/hr IVPB Q6H [facility] PRN Reason: Protocol Last Admin: 02/25/18 17:07 Dose: 100 mls/hr Vancomycin HCl 1,500 mg/ (Sodium Chloride) 500 mls @ 333.333 mls/hr IVPB Q12H [facility] PRN Reason: Protocol Last Admin: 02/25/18 12:52 Dose: 333.333 mls/hr Insulin Human Regular (Novolin R) 0 unit SC ACHS [facility] PRN Reason: Protocol Last Admin: 02/25/18 16:32 Dose: Not Given Losartan Potassium (Cozaar) 50 mg PO Q12H [facility] Last Admin: 02/25/18 10:01 Dose: 50 mg Morphine Sulfate (Morphine) 1 mg IVP Q4 PRN PRN Reason: Pain, moderate (4-7) Last Admin: 02/25/18 10:03 Dose: 1 mg Ondansetron HCl (Zofran Inj) 4 mg IVP Q6H PRN PRN Reason: Nausea/Vomiting Pantoprazole Sodium (Protonix Ec Tab) 40 mg PO DAILY [facility] Last Admin: 02/25/18 10:01 Dose: 40 mg Pregabalin (Lyrica) 25 mg PO HS [facility] Last Admin: 02/24/18 22:08 Dose: Not Given Saccharomyces Boulardii (Florastor) 250 mg PO BID [facility] Last Admin: 02/25/18 18:11 Dose: 250 mg - Labs Labs: 02/25/18 07:10 02/25/18 07:10 PT 10.2 SECONDS (9.7-12.2) 02/23/18 01:52 INR 0.9 02/23/18 01:52 APTT 32 SECONDS (21-34) 02/23/18 01:52
[2018-02-25] MEDS: HYDROmorphone 1 mg/ml ISec IVP PRN (21:27)
[2018-02-26] MEDS: Piperacill/Tazo 3.375gm in Dex 3.375 GM/50 ML BAG IVPB SCH ×5 (04:44→21:38)
--- NOTE | 2018-02-26 06:18 | CON ---
DATE: That is from Dr. Harper to Dr. Brandt Laurent. I was called for GI consultation by the admitting medical team. The patient is seen and fully examined on 02/23/2018. The entire chart is reviewed including, but not limited to, the most recent lab and radiology study results, current and previous medication list, current and previous medical events, allergies to medication list as well as all the available current and previous medical record. Case discussed with the staff at length on 02/23/2018 post my GI consultation. HISTORY OF PRESENT ILLNESS: This is a 77-year-old female who was admitted to the hospital post fall with knee injury, was found to have right lower extremities fracture with a complain of severe pain, recurrent episodes of rectal pain, and occasional bleeding rectally before with mild change of bowel movement habits. No reported chest pain, palpitation, significant shortness of breath. No change of mental status since. No chills or fever. PAST MEDICAL HISTORY: Including, but not limited to, 1. Hypertension with congestive heart failure. 2. Diabetes mellitus. 3. Peptic ulcer disease. 4. Bronchial asthma. 5. Severe anxiety syndrome. 6. Known history of rheumatoid arthritis. 7. Periods of any anemia before. 8. Peripheral edema syndrome. 9. Status post back surgery previously, which patient had recurrent severe lower back pain with lower extremity problems. 10. The patient has status post cardiac cath in 05/2015. 11. Anemia with blood transfusion in the past. FAMILY HISTORY: Unknown. SOCIAL HISTORY: No reported known history of cigarette smoking or alcohol intake. CURRENT MEDICATIONS: Medication list post admission was reviewed. ALLERGIES TO MEDICATIONS: UNCLEAR. Initial blood workup post admission showed leucocytosis of 11.9, blood glucose level 126 with normal BUN, but low creatinine of 0.6. PHYSICAL EXAMINATION: GENERAL: This is a 77-year-old female, seen and examined on 02/23/2018 in the presence of staff in the floor as well as family members, appears to be awake, alert, oriented with a complain also of rectal pain with change of bowel movement habits. VITAL SIGNS: The patient is afebrile with heart rate of 80, respiratory rate of 20 to 22, and blood pressure 144/66. The patient is mildly obese. HEENT: Showed dry oral mucous membrane. Nonicteric sclerae. LYMPH NODES: No lymphadenitis or lymphadenopathy. LUNGS: Few scattered crepitations with decreased air entry at bases. HEART: Positive S1 and S2. ABDOMEN: Soft with mild distention, mildly obese with slight generalized tenderness. No mass or organomegaly. No rebound tenderness or guarding. RECTAL: Positive stones. Positive for a small anal fissure and internal hemorrhoids. EXTREMITIES: With cast on the left lower extremity with mild edematous changes. No clubbing or cyanosis but edematous changes. Peripheral pulses are present bilaterally but weak. NEUROLOGIC: No reported new focal neurological deficits, sensory or motor. IMPRESSION: 1. Anal fissure with internal hemorrhoids. 2. Change of bowel movement habits of unclear pathology, that could be secondary to medication intake. 3. Multiple past medical history as mentioned above. 4. Known history of anemia, patient never had endoscopic evaluation of the GI tract as per her statement. No colonoscopy was done before. SUGGESTIONS: 1. Agree with your plan. 2. High-fiber diet. 3. Colace p.o. one tablet twice to three times a day. 4. Cancer markers including CEA. 5. Anusol cream HC for local rectal apply twice a day. 6. Canasa suppository 1 gm one at bedtime for the following 4 weeks. 7. Due to the patient's leukocytosis, I prefer to place the patient on Flagyl 500 mg IV piggyback every 8 hours in the meantime. 8. Sectional abdominal and pelvic CAT scan. 9. Endoscopic evaluation of the GI tract when the patient is more stable clinically, otherwise, close observation to follow. 10. Proton pump inhibitors p.o. 11. Further recommendations to follow. Thank you for letting me participate in your patient's case management. We will follow up closely with you. Alondra Harper MD
--- NOTE | 2018-02-26 07:33 | OP ---
PROCEDURE DATE: 02/23/2018 PREOPERATIVE DIAGNOSIS: Right ankle open trimalleolar equivalent fracture. POSTOPERATIVE DIAGNOSIS: Right ankle open trimalleolar equivalent fracture. PROCEDURE PERFORMED: 1. Right ankle irrigation and debridement of open fracture wound with primary closure. 2. Open reduction and internal fixation of right ankle fibular fracture and syndesmotic injury. SURGEON: Lucrecia Sierra DPM ASSISTANTS: Piotr Dennis DPM, PGY-3; Dr. Savannah Walker, PGY-3; Rosa Polk DPM, PGY-2; and Dr. Renetta Willard, PGY-2. ANESTHESIA: General. INDICATIONS: This patient is a 77-year-old female with the above mentioned diagnosis. The patient presented to the [facility] Emergency Department after suffering a traumatic injury to her right ankle. Diagnostic imaging confirmed the presence of a trimalleolar equivalent ankle fracture to the patient's right ankle. The patient was then admitted to the [facility] for surgical intervention. All alternatives, benefits, complications and risks for surgical procedure was explained to the patient at length. The patient verbalized understanding and wished to proceed. All questions were addressed and answered. No guarantees were given or applied. The consent was signed and n.p.o. status was confirmed prior to bringing the patient to the operating room. DESCRIPTION OF PROCEDURE: The patient was brought into the operating room and placed on the operative room table in a supine position. After induction of general anesthesia, a pneumatic thigh tourniquet was placed on the patient's right thigh. The right lower extremity was then prepped and draped in the normal sterile manner and the procedure began. PROCEDURE #1: Irrigation and debridement of right ankle open fracture wound with primary closure. Attention was directed to the medial aspect of the patient's right ankle where approximately 5 cm fracture wound was noted. The wound was then inspected for any bleeding vessels, and all bleeding vessels were cauterized utilizing electrocautery. It was noted at that time, the bleeding was adequately controlled. The wound was again inspected for any nonviable tissue or contaminated debris, and the debris was removed from the wound. The wound was then flushed with copious amounts, approximately 3 L of normal sterile saline using a pulse lavage. After irrigation of the wound, the wound was then inspected and it was noted that the wound was healthy in appearance with no visible debris at this time, the appearance of the wound deemed prior to attempted primary closure would be attempted after reduction of the fracture. PROCEDURE #2: Open reduction and internal fixation of the right ankle fibular fracture and syndesmotic injury. Attention was then directed to the lateral aspect of the patient's right ankle where a radial longitudinal incision was overlying the distal portion of the patient's fibula. The incision was made with a #15 blade and deepened through superficial and subcutaneous tissues utilizing sharp and blunt dissection. Care was taken to retract all vital neurovascular and tendon structures throughout the duration of the procedure. All superficial bleeding vessels were cauterized utilizing electrocautery. A #15 blade was then utilized making a linear incision through the periosteum underlying the distal aspect of the fibula. A freer huynh elevator and a #15 blade was then utilized to free the periosteum from the distal aspect of the fibula and the fracture site. At the time, the fracture site could be visualized and it was noted to be oblique in orientation to the distal aspect of the fibula with an additional avulsion fracture from the anteromedial portion of the distal lateral malleolus. The surgical area was then flushed with copious amounts of sterile normal saline. Next, utilizing the bone reduction forceps, the main oblique fracture fragment was reduced and temporarily stabilized with the forceps in an anatomical position. A second bone reduction clamps were then utilized to reduce and temporarily stabilize the avulsion fracture of the anterior medial fibula. Intraoperative fluoroscopy was then utilized and it was confirmed that all fracture fragments had been adequately reduced and the fibula length had been anatomically distort. Next, a 0.062 K wire was utilized to temporary stabilize the main oblique fracture fragment and 0.045 K wire was utilized to stabilize the avulsion fracture fragment. Attention was then directed to the right sesamoid fracture and a Synthes 2.7 cm fully-threaded cortical screw was inserted perpendicular across the fracture fragment from anterior to posterior utilizing standard Diaz technique. The screw was inserted and tightened to two finger tightness. The temporary K wire was then removed and it was noted that the fracture was adequately stabilized. Attention was then directed to the main oblique fracture fragment, and a Synthes 2.5 mm fully threaded cortical screw was inserted perpendicular to the fracture fragment from anterior to posterior utilizing a standard Diaz technique and tightened with two finger tightness. It was noted upon the insertion of the screw that there was excellent compression across the fracture site. Next, a Synthes 6-hole right variable angle distal fibular locking plate was applied to the lateral aspect of the fibula. Intraoperative fluoroscopy was utilized to confirm appropriate location before carrying the plate to the lateral aspect of the fibula. The plate was then secured to the lateral aspect of the fibula by inserting six 2.7 mm fully threaded interlocking screws in the distal plate hole and three 2.7 mm fully threaded cortical screws in the proximal plate hole. All screws were inserted utilizing standard Diaz technique and tightened to two finger tightness. It was noted at this time that the fibular fracture had been adequately reduced. The fibular length had been anatomically restored and the internal fixation was appropriately placed. The ankle was then stressed with dorsiflexion and eversion to test the integrity of the syndesmosis under intraoperative fluoroscopy. It was noted at that time that there was instability with syndesmosis. Next, two Synthes 4.0 mm fully threaded cancellous screws were inserted through the oblong plate holes to stabilize the muscles. The first screw was inserted in the distal most oblong plate hole and angled from the lateral to the medial at approximately 30 degrees anterior angle to recreate the syndesmosis access. The screw was inserted utilizing a standard Diaz technique and tightened with two finger tightness. The second syndesmotic screw was inserted in the proximal most oblong plate hole and inserted in similar fashion, but slightly divergent to the first screw. The screw was then inserted utilizing sterile Diaz technique and tightened with two finger tightness. Both screws were inserted ensuring to not penetrate the far cortex of the medial tibia. Intraoperative fluoroscopy was then utilized and it was confirmed that the syndesmosis was adequately stabilized and the two syndesmotic screws were in the appropriate position. The surgical area was then flushed with copious amounts of sterile normal saline. The periosteum and capsular layers were then reapproximated utilizing 2-0 Vicryl suture. The subcutaneous tissues were reapproximated utilizing 3-0 and 4-0 Vicryl sutures. The skin was reapproximated utilizing 4-0 prolene suture. Attention was then directed to the medial wound where it was noted that there was adequate reduction of tension after reduction of the fracture for the wound to be closed primarily. The wound was then reapproximated utilizing 4-0 Prolene suture. Intraoperative fluoroscopy was then again utilized and it was confirmed that there was appropriate placement of all internal fixation with adequate reduction of all fractures and anatomic gnosticist of the ankle joint and fibular length. Intraoperative injections consisted of 30 mL of 0.25% Marcaine plain. Postoperative bandages consisted of Betadine-soaked Adaptic, DSD, ABD pad, Marcela, cast padding a posterior splint, an AO splint and HATTIE bandage. POSTOPERATIVE CONDITION: The patient tolerated the procedure and the anesthesia well with no apparent complications or complaints. The patient was escorted from the OR to the recovery room with vital signs stable and neurovascular status intact. The patient will follow up with Dr. Sierra, and the patient will return to the [facility] floor where she will be monitored postoperatively. Piotr Dennis DPM Lucrecia Sierra DPM PAULY
[2018-02-26 07:54] LABS: BASO # 0.1 K/uL (0.0-0.2); BASO % 0.7 % (0.0-2.0); EOS # 0.2 K/uL (0.0-0.7); EOS % 2.2 % (0.0-4.0); HEMOGLOBIN 9.3 g/dL (11.0-16.0); LYMPH # 1.3 K/uL (1.0-4.3); LYMPH % 12.4 % (20.0-40.0); MEAN CORPUSCULAR HEMOGLOBIN 27.6 pg (27.0-31.0); MEAN CORPUSCULAR HGB CONC 33.6 g/dL (33.0-37.0); MEAN PLATELET VOLUME 8.7 fL (7.2-11.7); MONO # 0.9 K/uL (0.0-0.8); MONO % 8.9 % (0.0-10.0); NEUT # 7.8 K/uL (1.8-7.0); NEUT % 75.8 % (50.0-75.0); RBC 3.39 Mil/uL (3.80-5.20); RED CELL DISTRIBUTION WIDTH 13.5 % (11.5-14.5); WHITE BLOOD COUNT 10.2 K/uL (4.8-10.8)
[2018-02-26] MEDS: (Novolin R) Insulin Human Regular 100 units/ml vial SC SCH ×5 (08:10→21:47)
[2018-02-26 08:16] LABS: ALB/GLOB RATIO 0.9 (1.0-2.1); ALBUMIN 3.1 g/dL (3.5-5.0); ALT/SGPT 18 U/L (9-52); AST/SGOT 28 U/L (14-36); BLOOD UREA NITROGEN 9 mg/dL (7-17); CALCIUM 8.4 mg/dl (8.6-10.4); GFR AFRICAN-AMERICAN > 60; GFR NON-AFRICAN AMERICAN > 60
[2018-02-26] MEDS ORDERED: Bisacodyl 5mg EC Tab PO ONE (08:34)
--- NOTE | 2018-02-26 10:08 | CP.PCM.PN ---
Subjective - Date & Time of Evaluation Date of Evaluation: 02/26/18 Time of Evaluation: 10:45 - Subjective Subjective: Podiatry Progress Note- Dr. Sierra 77 yo female pt POD#3 ORIF R ankle fx with primary closure R ankle laceration. Pt seen sitting upright in bed with right leg elevated on 2 pillows. Pt appears AAOx3, pleasant and conversational. Does complain of pain to R leg, but is controlled with pain medication. Reports compliance with incentive spirometer every hour. Does complain of mild cough for past 2 days. Has been compliant with NWB to the RLE. Physical therapy has been assisting pt out of bed and into bedside chair daily with no weight to the R foot. Denies f/n/v/c/sob/cp/ weakness at this time. Objective - Vital Signs/Intake and Output Vital Signs (last 24 hours): Temp Pulse Resp BP Pulse Ox 97.7 F 83 20 141/72 97 02/26/18 07:50 02/26/18 07:50 02/26/18 07:50 02/26/18 07:50 02/26/18 07:50 Intake and Output: 02/26/18 02/26/18 06:59 18:59 Intake Total 550 Output Total 1400 Balance -850 - Medications Medications: Current Medications Albuterol/Ipratropium (Duoneb 3 Mg/0.5 Mg (3 Ml) Ud) 3 ml INH RQ6 PRN PRN Reason: Shortness of Breath Dextrose (Dextrose 50% Inj) 0 ml IV STAT PRN; Protocol PRN Reason: Hypoglycemia Protocol Dextrose (Glutose 15) 0 gm PO ONCE PRN; Protocol PRN Reason: Hypoglycemia Protocol Docusate Sodium (Colace) 100 mg PO BID [facility] Last Admin: 02/25/18 18:10 Dose: 100 mg Glucagon (Glucagen Diagnostic Kit) 0 mg IM STAT PRN; Protocol PRN Reason: Hypoglycemia Protocol Heparin Sodium (Porcine) (Heparin) 5,000 units SC Q8 [facility] Last Admin: 02/26/18 06:41 Dose: Not Given Dextrose (Dextrose 5% In Water 1000 Ml) 1,000 mls @ 0 mls/hr IV .Q0M PRN; Protocol; Per Protocol PRN Reason: Hypoglycemia Protocol Piperacillin Sod/Tazobactam Sod (Zosyn 3.375 Gm Iv Premix) 3.375 gm in 50 mls @ 100 mls/hr IVPB Q6H GABRIELA PRN Reason: Protocol Last Admin: 02/26/18 04:44 Dose: 100 mls/hr Vancomycin HCl 1,500 mg/ (Sodium Chloride) 500 mls @ 333.333 mls/hr IVPB Q12H GABRIELA PRN Reason: Protocol Last Admin: 02/26/18 00:09 Dose: 333.333 mls/hr Insulin Human Regular (Novolin R) 0 unit SC ACHS GABRIELA PRN Reason: Protocol Last Admin: 02/26/18 08:10 Dose: Not Given Losartan Potassium (Cozaar) 50 mg PO Q12H [facility] Last Admin: 02/25/18 21:26 Dose: 50 mg Morphine Sulfate (Morphine) 1 mg IVP Q4 PRN PRN Reason: Pain, moderate (4-7) Last Admin: 02/25/18 10:03 Dose: 1 mg Ondansetron HCl (Zofran Inj) 4 mg IVP Q6H PRN PRN Reason: Nausea/Vomiting Pantoprazole Sodium (Protonix Ec Tab) 40 mg PO DAILY [facility] Last Admin: 02/25/18 10:01 Dose: 40 mg Pregabalin (Lyrica) 25 mg PO HS [facility] Last Admin: 02/25/18 21:26 Dose: 25 mg Saccharomyces Boulardii (Florastor) 250 mg PO BID [facility] Last Admin: 02/25/18 18:11 Dose: 250 mg - Labs Labs: 02/26/18 07:46 02/26/18 07:46 PT 10.2 SECONDS (9.7-12.2) 02/23/18 01:52 INR 0.9 02/23/18 01:52 APTT 32 SECONDS (21-34) 02/23/18 01:52 - Constitutional Appears: Non-toxic, No Acute Distress - Extremities Exam Extremities Exam: absent: Calf Tenderness Additional comments: RLE exam: AO splint appears to be c/d/i with absence of strikethrough to outer bandage VASC- DP/PT pulses are fully palpable, cap refill < 3 sec to all digits, skin temp runs warm to warm, minimal pedal edema is appreciated NEURO- gross and protective pedal sensation are intact DERM- surgical sites (medial and lateral) appear to be well-coapted with no signs of dehisence, surgical sites b/l to appear to be slightly macerated today , neg purulence, minimal serosanguinous drainage is noted from medial laceration site today, neg fluctuance, neg malodor, there does appear to be some erythema to anterior leg today but no ascending cellulitis, neg fx blisters MSK- tenderness to palpation of medial and lateral malleoli and on medial and lateral gutters, pt able to wiggle all toes freely, rearfoot exam and MMT are again deferred due to post-op condition - Neurological Exam Neurological Exam: Alert, Awake, Oriented x3 - Psychiatric Exam Psychiatric exam: Normal Affect, Normal Mood Assessment and Plan - Assessment and Plan (Free Text) Assessment: 77 yo female patient POD#3 closed reduction at bedside of R open ankle fracture , ORIF R open ankle fx, primary closure of laceration R ankle Plan: Pt S/E at the bedside d/w attendings Dr. Sierra and Dr. Tarah Sierra in detail chart, labs and vitals reviewed: afebrile, neg leukocytosis Pt pre-medicated with pain meds, medial and lateral incision sites cleansed and dressed with betadine, non-adherent dressing, 4x4 gauze, kerlix, and well- padded AO splint was reapplied Reminded of strict NWB to RLE and bedrest, she is to elevate RLE at all times ( toes to nose) and c/w Ice behind the knee Dilaudid discontinued, pt receiving morphine 1 mg IV q4prn encourage incentive spirometer hourly c/w IV abx (to be discontinued prior to discharge per primary) Pending auth for discharge to [facility]) Pt is to f/u with Dr. Sierra at [facility] c/w NWB to RLE, bedrest, elevate RLE at all times, ice behind knee morphine and dialudid on board for pain control encourage incentive spirometer use q1h c/w IV abx discussed with medicine team, will need [facility] pending approval stable per podiatry for discharge to [facility] f/u outpatient Dr. Sierra [facility] ([facility])
[2018-02-26] MEDS: Morphine 4 MG/ML VIAL IVP PRN (10:40)
[2018-02-26] MEDS: Pantoprazole 40 mg EC Tab PO SCH (10:40)
[2018-02-26] MEDS: Saccharomyces Boulardi 250 mg Cap PO SCH ×2 (10:43→17:35)
--- NOTE | 2018-02-26 10:43 | CARD ---
APPROVED REPORT EKG Measurement Heart [id number] [place] 200P [id number] <Conclusion> Sinus rhythm with premature atrial complexes Otherwise normal ECG
--- NOTE | 2018-02-26 11:03 | CP.PCM.PN ---
<Yaron Lewis - Last Filed: 02/26/18 13:24> Subjective - Date & Time of Evaluation Date of Evaluation: 02/26/18 Time of Evaluation: 09:00 - Subjective Subjective: PGY2 Cardiology Progress Note for Dr. Wu Patient was seen and examined at bedside this AM. She is POD#3 s/p ORIF of R ankle. C/o moderate R LE pain s/p surgery. Dressing will be changed today. C/o mild cough, productive of white sputum. Patient denies chest pain, SOB, or edema. 12-point review of systems is otherwise negative without any additional acute complaints. Objective - Vital Signs/Intake and Output Vital Signs (last 24 hours): Temp Pulse Resp BP Pulse Ox 97.7 F 83 20 141/72 97 02/26/18 07:50 02/26/18 07:50 02/26/18 07:50 02/26/18 07:50 02/26/18 07:50 Intake and Output: 02/26/18 02/26/18 06:59 18:59 Intake Total 550 Output Total 1400 Balance -850 - Medications Medications: Current Medications Albuterol/Ipratropium (Duoneb 3 Mg/0.5 Mg (3 Ml) Ud) 3 ml INH RQ6 PRN PRN Reason: Shortness of Breath Dextrose (Dextrose 50% Inj) 0 ml IV STAT PRN; Protocol PRN Reason: Hypoglycemia Protocol Dextrose (Glutose 15) 0 gm PO ONCE PRN; Protocol PRN Reason: Hypoglycemia Protocol Docusate Sodium (Colace) 100 mg PO BID [facility] Last Admin: 02/26/18 10:43 Dose: 100 mg Glucagon (Glucagen Diagnostic Kit) 0 mg IM STAT PRN; Protocol PRN Reason: Hypoglycemia Protocol Heparin Sodium (Porcine) (Heparin) 5,000 units SC Q8 [facility] Last Admin: 02/26/18 06:41 Dose: Not Given Dextrose (Dextrose 5% In Water 1000 Ml) 1,000 mls @ 0 mls/hr IV .Q0M PRN; Protocol; Per Protocol PRN Reason: Hypoglycemia Protocol Piperacillin Sod/Tazobactam Sod (Zosyn 3.375 Gm Iv Premix) 3.375 gm in 50 mls @ 100 mls/hr IVPB Q6H [facility] PRN Reason: Protocol Last Admin: 02/26/18 10:41 Dose: 100 mls/hr Vancomycin HCl 1,500 mg/ (Sodium Chloride) 500 mls @ 333.333 mls/hr IVPB Q12H [facility] PRN Reason: Protocol Last Admin: 02/26/18 00:09 Dose: 333.333 mls/hr Insulin Human Regular (Novolin R) 0 unit SC ACHS [facility] PRN Reason: Protocol Last Admin: 02/26/18 08:10 Dose: Not Given Losartan Potassium (Cozaar) 50 mg PO Q12H [facility] Last Admin: 02/26/18 10:40 Dose: 50 mg Morphine Sulfate (Morphine) 1 mg IVP Q4 PRN PRN Reason: Pain, moderate (4-7) Last Admin: 02/26/18 10:40 Dose: 1 mg Ondansetron HCl (Zofran Inj) 4 mg IVP Q6H PRN PRN Reason: Nausea/Vomiting Pantoprazole Sodium (Protonix Ec Tab) 40 mg PO DAILY [facility] Last Admin: 02/26/18 10:40 Dose: 40 mg Pregabalin (Lyrica) 25 mg PO HS [facility] Last Admin: 02/25/18 21:26 Dose: 25 mg Saccharomyces Boulardii (Florastor) 250 mg PO BID [facility] Last Admin: 02/26/18 10:43 Dose: 250 mg - Labs Labs: 02/26/18 07:46 02/26/18 07:46 PT 10.2 SECONDS (9.7-12.2) 02/23/18 01:52 INR 0.9 02/23/18 01:52 APTT 32 SECONDS (21-34) 02/23/18 01:52 - Additional Findings Additional findings: - Constitutional Appears: No Acute Distress - Head Exam Head Exam: ATRAUMATIC, NORMAL INSPECTION - Eye Exam Eye Exam: EOMI, Normal appearance - ENT Exam ENT Exam: Mucous Membranes Moist - Respiratory Exam Respiratory Exam: Clear to Auscultation Bilateral, NORMAL BREATHING PATTERN - Cardiovascular Exam Cardiovascular Exam: REGULAR RHYTHM, +S1, +S2, Systolic Murmur. absent: JVD - GI/Abdominal Exam GI & Abdominal Exam: Normal Bowel Sounds, Soft. absent: Tenderness - Extremities Exam Additional comments: Note: Right LE cast in place, good dorsalis pedis pulses b/l - Neurological Exam Neurological exam: Alert, Oriented x3, right lower extremity sensations intact Assessment and Plan - Assessment and Plan (Free Text) Assessment: Aortic Stenosis with Pulmonary HTN 02/26: patient will require TAVR in the future, after discharge and stabilization. Will see patient as outpatient. -Echo 02/23/18- EF 60%, Grade 2 pseudonormal filling dynamics, LA inc Pressure, LA dilated, mild MR, no pulm HTN, aortic root sclerocalcific changes. see full report. -EKG- nsr, LA enlargement. see full report. Patient is moderate - high risk for CV event during surgery. Lipid Panel NORMAL Pt with dyspnea on exertion Continue Duoneb 3ml INH RQ6 PRN for shortness of breath HTN BP Stable. Continue current management. -Continue Losartan 50mg PO q12 - Monitor Right Ankle open fracture with Air in Soft Tissue Patient is moderate - high risk for CV event during surgery. Case Discussed with Dr. Bryce Lewis, PGY2 <Solo Wu - Last Filed: 02/27/18 10:11> Objective - Vital Signs/Intake and Output Vital Signs (last 24 hours): Temp Pulse Resp BP Pulse Ox 98.0 F 85 18 139/81 97 02/27/18 07:20 02/27/18 09:23 02/27/18 07:20 02/27/18 09:23 02/27/18 07:20 Intake and Output: 02/27/18 02/27/18 06:59 18:59 Intake Total 340 Balance 340 - Medications Medications: Current Medications Albuterol/Ipratropium (Duoneb 3 Mg/0.5 Mg (3 Ml) Ud) 3 ml INH RQ6 PRN PRN Reason: Shortness of Breath Last Admin: 02/26/18 22:40 Dose: 3 ml Dextrose (Dextrose 50% Inj) 0 ml IV STAT PRN; Protocol PRN Reason: Hypoglycemia Protocol Dextrose (Glutose 15) 0 gm PO ONCE PRN; Protocol PRN Reason: Hypoglycemia Protocol Docusate Sodium (Colace) 100 mg PO BID [facility] Last Admin: 02/27/18 09:23 Dose: 100 mg Glucagon (Glucagen Diagnostic Kit) 0 mg IM STAT PRN; Protocol PRN Reason: Hypoglycemia Protocol Heparin Sodium (Porcine) (Heparin) 5,000 units SC Q8 [facility] Last Admin: 02/27/18 05:46 Dose: 5,000 units Dextrose (Dextrose 5% In Water 1000 Ml) 1,000 mls @ 0 mls/hr IV .Q0M PRN; Protocol; Per Protocol PRN Reason: Hypoglycemia Protocol Insulin Human Regular (Novolin R) 0 unit SC ACHS [facility] PRN Reason: Protocol Last Admin: 02/27/18 08:13 Dose: Not Given Losartan Potassium (Cozaar) 50 mg PO Q12H [facility] Last Admin: 02/27/18 09:23 Dose: 50 mg Morphine Sulfate (Morphine) 1 mg IVP Q4 PRN PRN Reason: Pain, moderate (4-7) Last Admin: 02/26/18 10:40 Dose: 1 mg Ondansetron HCl (Zofran Inj) 4 mg IVP Q6H PRN PRN Reason: Nausea/Vomiting Pantoprazole Sodium (Protonix Ec Tab) 40 mg PO DAILY [facility] Last Admin: 02/27/18 09:23 Dose: 40 mg Pregabalin (Lyrica) 25 mg PO HS [facility] Last Admin: 02/26/18 21:31 Dose: 25 mg Saccharomyces Boulardii (Florastor) 250 mg PO BID [facility] Stop: 03/28/18 10:00 Last Admin: 02/27/18 09:23 Dose: 250 mg - Labs Labs: 02/27/18 07:00 02/27/18 07:00 PT 10.2 SECONDS (9.7-12.2) 02/23/18 01:52 INR 0.9 02/23/18 01:52 APTT 32 SECONDS (21-34) 02/23/18 01:52 Assessment and Plan - Assessment and Plan (Free Text) Plan: Patient seen and evaluated personally by ca Plan of care d/w the medical writer and as documented
--- NOTE | 2018-02-26 12:39 | CP.PCM.PN ---
<Chriss Martin R - Last Filed: 02/26/18 12:32> Subjective - Date & Time of Evaluation Date of Evaluation: 02/26/18 Time of Evaluation: 12:32 - Subjective Subjective: PGY-[address] Mignon Sierra. No acute events noted overnight. Patient s/p closed reduction with podiatry and s/p ORIF of right ankle fibular fracture POD #3. She said her pain is controlled. She denied chest pain, shortness of breath, excessive bleeding from wound site, nausea, vomiting, fevers. Objective - Vital Signs/Intake and Output Vital Signs (last 24 hours): Temp Pulse Resp BP Pulse Ox 97.7 F 83 20 141/72 97 02/26/18 07:50 02/26/18 07:50 02/26/18 07:50 02/26/18 07:50 02/26/18 07:50 Intake and Output: 02/26/18 02/26/18 06:59 18:59 Intake Total 550 Output Total 1400 Balance -850 - Medications Medications: Current Medications Albuterol/Ipratropium (Duoneb 3 Mg/0.5 Mg (3 Ml) Ud) 3 ml INH RQ6 PRN PRN Reason: Shortness of Breath Dextrose (Dextrose 50% Inj) 0 ml IV STAT PRN; Protocol PRN Reason: Hypoglycemia Protocol Dextrose (Glutose 15) 0 gm PO ONCE PRN; Protocol PRN Reason: Hypoglycemia Protocol Docusate Sodium (Colace) 100 mg PO BID [facility] Last Admin: 02/26/18 10:43 Dose: 100 mg Glucagon (Glucagen Diagnostic Kit) 0 mg IM STAT PRN; Protocol PRN Reason: Hypoglycemia Protocol Heparin Sodium (Porcine) (Heparin) 5,000 units SC Q8 [facility] Last Admin: 02/26/18 06:41 Dose: Not Given Dextrose (Dextrose 5% In Water 1000 Ml) 1,000 mls @ 0 mls/hr IV .Q0M PRN; Protocol; Per Protocol PRN Reason: Hypoglycemia Protocol Piperacillin Sod/Tazobactam Sod (Zosyn 3.375 Gm Iv Premix) 3.375 gm in 50 mls @ 100 mls/hr IVPB Q6H [facility] PRN Reason: Protocol Last Admin: 02/26/18 10:41 Dose: 100 mls/hr Vancomycin HCl 1,500 mg/ (Sodium Chloride) 500 mls @ 333.333 mls/hr IVPB Q12H [facility] PRN Reason: Protocol Last Admin: 02/26/18 00:09 Dose: 333.333 mls/hr Insulin Human Regular (Novolin R) 0 unit SC ACHS [facility] PRN Reason: Protocol Last Admin: 02/26/18 08:10 Dose: Not Given Losartan Potassium (Cozaar) 50 mg PO Q12H [facility] Last Admin: 02/26/18 10:40 Dose: 50 mg Morphine Sulfate (Morphine) 1 mg IVP Q4 PRN PRN Reason: Pain, moderate (4-7) Last Admin: 02/26/18 10:40 Dose: 1 mg Ondansetron HCl (Zofran Inj) 4 mg IVP Q6H PRN PRN Reason: Nausea/Vomiting Pantoprazole Sodium (Protonix Ec Tab) 40 mg PO DAILY [facility] Last Admin: 02/26/18 10:40 Dose: 40 mg Pregabalin (Lyrica) 25 mg PO HS [facility] Last Admin: 02/25/18 21:26 Dose: 25 mg Saccharomyces Boulardii (Florastor) 250 mg PO BID [facility] Last Admin: 02/26/18 10:43 Dose: 250 mg - Labs Labs: 02/26/18 07:46 02/26/18 07:46 PT 10.2 SECONDS (9.7-12.2) 02/23/18 01:52 INR 0.9 02/23/18 01:52 APTT 32 SECONDS (21-34) 02/23/18 01:52 - Additional Findings Additional findings: - Constitutional Appears: No Acute Distress - Head Exam Head Exam: ATRAUMATIC, NORMAL INSPECTION - Eye Exam Eye Exam: EOMI, Normal appearance - ENT Exam ENT Exam: Mucous Membranes Moist - Respiratory Exam Respiratory Exam: Clear to Auscultation Bilateral, NORMAL BREATHING PATTERN - Cardiovascular Exam Cardiovascular Exam: REGULAR RHYTHM, RRR, +S1, +S2, Systolic Murmur. absent: JVD Holosystolic Murmur heard loudest at the Right Second Intercostal Space - GI/Abdominal Exam GI & Abdominal Exam: Normal Bowel Sounds, Soft. absent: Tenderness Additional comments: obese - Rectal Exam Additional comments: Rectal performed 02/24/18: No gross blood seen on rectal. Discoloration 3 inches lateral to anus on right could have been site of previous fissure. No other evidence of fissure seen. No abnormal masses palpated. Skin tag inferior to right gluteal fold. - Extremities Exam Additional comments: Right LE cast in place, good dorsalis pedis pulses b/l - Neurological Exam Neurological exam: Alert, Oriented x3, right lower extremity sensations intact Assessment and Plan - Assessment and Plan (Free Text) Assessment: Right Ankle open fracture with Air in Soft Tissue Ortho Consult: Dr. Solorio --> help appreciated Infectious Disease consult, Dr Campbell * Agrees with Abx selection Podiatry consult, Dr Sierra * s/p closed reduction with podiatry afternoon 02/23/18, DPM Dr Willard * s/p 1.) ORIF of right ankle fibular fracture and syndesmotic injury. 2.) Irrigation and debridement of right ankle open fracture wound with primary closure. Performed evening 02/23/[address] Sierra. Keep right leg elevated Non weight bearing to right leg Ice to right leg Imaging: Ankle XRAY: Fractures of the distal right tibia and fibula with associated subluxation Chest XRAY: No active disease Lower extremity CT: Acute fractures of distal fibula and posterior malleolus of distal tibia. Disruption of ankle mortise with medial widening. Additional fractures as described in full report. Meds: Zosyn 3.375g IVP Q6H -> to be discontinued 02/27/18 00:00 Vancomcyin 1.5g IVPB Q12H -> to be discontinued 02/27/18 00:00 Florastor 250mg PO BID Dilaudid 0.5mg IVP Q4H PRN for severe pain Morphine 1mg IVP Q4H PRN for moderate pain Colace 100mg PO BID History of DM ISS Accuchecks Hypoglycemia protocol A1c 6.9 Aortic Stenosis with Pulmonary HTN Exertional dyspnea Cardio Consult: Dr. Wu --> help appreciated * Spoke with Dr. Wu and stated repeat ECHO can be completed as routine * due to patient's chronic medical conditions such as exertional dyspnea, aortic stenosis and pulmonary HTN patient is a moderate to high risk. ECHO (12/02/2016): left ventricular ejection fraction within the normal range. Moderate valvular aortic stenosis. Mild to moderate tricuspid regurgitation. ECHO 02/24/18: EF 60%, Grade II pseudonormal filling dynamics, LA pressure mildly elevated, LA mildly dilated, AV appears trileaflet and calcified, mitral annular calcification is mild to moderate, mitral regurgitation is mild, tricuspid regurgitation is mild, no pulmonary hypertension Lipid Panel NORMAL Meds: Duoneb 3ml INH RQ6 PRN for shortness of breath Hx of Anal Fissure GI consulted, Dr Dennison * Patient may need colonoscopy when she is more stable clinically Stool occult performed 02/24/18 which was NEGATIVE No gross blood seen on rectal. Discoloration 3 inches lateral to anus on right could have been site of previous fissure. No evidence of fissure seen. No abnormal masses palpated. Skin tag inferior to right gluteal fold. F/U CEA Meds: Will hold off on any medications (such as anusol, canasa) at this time as patient without any active issues 1st Degree Heart Block on EKG Prolonged QTc 473 Bilateral Feet Neuropathy Lyrica 25 mg PO HS HTN Continue home medications Losartan 50mg PO BID Lumbar Spinal Stenosis s/p spinal surgery 2018 With urinary incontinence since spinal surgery 2018 Inserted gallegos Meds: Cont home med Pregabalin 25mg PO HS Prophylaxis Protonix 40mg PO QD Heparin 5000u SC Q8H Vegetarian Diet Disposition: Patient will need anticoagulation for VTE prophylaxis for 35 days S /P ORIF of Right Ankle Fracture 02/23/18. She is currently on Heparin 5,000 Units SC Q8H. This can be changed to Lovenox once she goes home from [facility] if she is able to administer it herself. If not then she will have to continue Aspirin 81 mg PO 2x/day until 03/30/18. Spoke with C[employer] Crus[employer] Operator Maria Antonia and she is awaiting insurance authorization for [facility]. Patient will also likely need home visiting nurse which should be arranged through [facility] upon her discharge there. <Dion Sierra - Last Filed: 02/26/18 18:53> Objective - Vital Signs/Intake and Output Vital Signs (last 24 hours): Temp Pulse Resp BP Pulse Ox 97.9 F 81 20 155/79 H 100 02/26/18 15:24 02/26/18 15:24 02/26/18 15:24 02/26/18 15:24 02/26/18 15:24 Intake and Output: 02/26/18 02/26/18 06:59 18:59 Intake Total 550 725 Output Total 1400 750 Balance -850 -25 - Medications Medications: Current Medications Albuterol/Ipratropium (Duoneb 3 Mg/0.5 Mg (3 Ml) Ud) 3 ml INH RQ6 PRN PRN Reason: Shortness of Breath Dextrose (Dextrose 50% Inj) 0 ml IV STAT PRN; Protocol PRN Reason: Hypoglycemia Protocol Dextrose (Glutose 15) 0 gm PO ONCE PRN; Protocol PRN Reason: Hypoglycemia Protocol Docusate Sodium (Colace) 100 mg PO BID [facility] Last Admin: 02/26/18 17:35 Dose: 100 mg Glucagon (Glucagen Diagnostic Kit) 0 mg IM STAT PRN; Protocol PRN Reason: Hypoglycemia Protocol Heparin Sodium (Porcine) (Heparin) 5,000 units SC Q8 [facility] Last Admin: 02/26/18 14:38 Dose: 5,000 units Dextrose (Dextrose 5% In Water 1000 Ml) 1,000 mls @ 0 mls/hr IV .Q0M PRN; Protocol; Per Protocol PRN Reason: Hypoglycemia Protocol Piperacillin Sod/Tazobactam Sod (Zosyn 3.375 Gm Iv Premix) 3.375 gm in 50 mls @ 100 mls/hr IVPB Q6H [facility] PRN Reason: Protocol Stop: 02/26/18 23:59 Last Admin: 02/26/18 18:08 Dose: 100 mls/hr Vancomycin HCl 1,500 mg/ (Sodium Chloride) 500 mls @ 333.333 mls/hr IVPB Q12H [facility] PRN Reason: Protocol Stop: 02/26/18 23:59 Last Admin: 02/26/18 12:34 Dose: 333.333 mls/hr Insulin Human Regular (Novolin R) 0 unit SC ACHS [facility] PRN Reason: Protocol Last Admin: 02/26/18 17:37 Dose: Not Given Losartan Potassium (Cozaar) 50 mg PO Q12H [facility] Last Admin: 02/26/18 10:40 Dose: 50 mg Morphine Sulfate (Morphine) 1 mg IVP Q4 PRN PRN Reason: Pain, moderate (4-7) Last Admin: 02/26/18 10:40 Dose: 1 mg Ondansetron HCl (Zofran Inj) 4 mg IVP Q6H PRN PRN Reason: Nausea/Vomiting Pantoprazole Sodium (Protonix Ec Tab) 40 mg PO DAILY [facility] Last Admin: 02/26/18 10:40 Dose: 40 mg Pregabalin (Lyrica) 25 mg PO HS [facility] Last Admin: 02/25/18 21:26 Dose: 25 mg Saccharomyces Boulardii (Florastor) 250 mg PO BID [facility] Last Admin: 02/26/18 17:35 Dose: 250 mg - Labs Labs: 02/26/18 07:46 02/26/18 07:46 PT 10.2 SECONDS (9.7-12.2) 02/23/18 01:52 INR 0.9 02/23/18 01:52 APTT 32 SECONDS (21-34) 02/23/18 01:52 Attending/Attestation - Attestation I have personally seen and examined this patient.: Yes I have fully participated in the care of the patient.: Yes I have reviewed all pertinent clinical information, including history, physical exam and plan: Yes Notes (Text): 02/26/18 18:46 Patient was seen and examined at 8 AM Exam, assessment and plan were gone over with the resident. Has not moved bowels in 4 days therefore 1 dose of Dulcolax was ordered. Please keep in mind she has not been eating much due to not liking the "malagasy food" here. I brought her some Swiss food from home this morning. D/C'd Dilaudid as pain is only when she moves the Right [place]ere Extremity and even then she states that the pain has improved. Last day of Vanco and Zosyn is today: the recommended 3 days of antibiotics post op to cover for Osteo for open fracture She will need total of 35 days of anticoagulation post op for VTE prophylaxis: currently on Heparin SC Q8H. I do not believe this patient will be able to self administer Lovenox at home. Therefore Medicine Team will recommend ASA 81 mg PO 2x/day when she leaves [facility]. Spoke with [employer] Operator Maria Antonia: she is still awaiting insurance approval for [facility]. Dion Sierra D.O.
--- NOTE | 2018-02-26 13:27 | PN ---
DATE: SUBJECTIVE: This is a 77-year-old female seen and examined in rounds, with status post closed reduction with complaint of right lower extremities pain on and off post surgically as well as intermittent abdominal and rectal pain with itching. The patient denied any shortness of breath, chest pain, or palpitations, but occasional dry cough. Tolerating oral intake well. The entire chart is reviewed, including but not limited to, the most recent lab and radiology study results, current and the previous medication list, current and the previous medical events. Case discussed with the staff at length. Today's lab showed hemoglobin 9.3, hematocrit 27.8, with normal white blood cells and platelet count with low creatinine. Blood glucose level 198, calcium 8.4, albumin 3.1, and cancer marker result is still pending. PHYSICAL EXAMINATION: GENERAL: This is a 77-year-old female, awake, alert, and oriented. VITAL SIGNS: Afebrile, with pulse of 80, respiratory rate 20 to 22, blood pressure 138/68. HEENT: Showed pale, dry oral mucous membranes. Nonicteric sclerae. LUNGS: Few scattered mild crepitations. Decreased air entry at bases. HEART: Positive S1 and S2. ABDOMEN: Soft with slight generalized tenderness. Bowel sounds are present. No mass or organomegaly. No rebound tenderness or guarding. EXTREMITIES: With right lower extremities cast in place. Mild bilateral edematous changes of the lower extremities. No clubbing or cyanosis. NEUROLOGIC: No reported new neurological deficits, sensory or motor. IMPRESSION: 1. Status post closed reduction of the right lower extremity ankle fracture. 2. Internal hemorrhoids with anal fissure. 3. Anemia, to rule out gastrointestinal blood loss upper versus lower. 4. Known history of but not limited to hypertension with congestive heart failure, diabetes mellitus, peptic ulcer disease, with bronchial asthma. 5. Known history of rheumatoid arthritis, with status post back surgery before. SUGGESTIONS: 1. Continue current management. 2. Follow up cancer markers. 3. The patient will need endoscopic evaluation of the gastrointestinal tract only when she is more stable clinically. 4. Further recommendations to follow. Alondra Harper MD Psychiatric # [id number]
--- NOTE | 2018-02-26 17:50 | CP.PCM.PN ---
Subjective - Date & Time of Evaluation Date of Evaluation: 02/26/18 Time of Evaluation: 08:00 - Subjective Subjective: Patient s/p closed reduction with podiatry and s/p ORIF of right ankle fibular fracture POD #3 afebrile c/o pain NAD Objective - Vital Signs/Intake and Output Vital Signs (last 24 hours): Temp Pulse Resp BP Pulse Ox 97.9 F 81 20 155/79 H 100 02/26/18 15:24 02/26/18 15:24 02/26/18 15:24 02/26/18 15:24 02/26/18 15:24 Intake and Output: 02/26/18 02/26/18 06:59 18:59 Intake Total 550 725 Output Total 1400 750 Balance -850 -25 - Medications Medications: Current Medications Albuterol/Ipratropium (Duoneb 3 Mg/0.5 Mg (3 Ml) Ud) 3 ml INH RQ6 PRN PRN Reason: Shortness of Breath Dextrose (Dextrose 50% Inj) 0 ml IV STAT PRN; Protocol PRN Reason: Hypoglycemia Protocol Dextrose (Glutose 15) 0 gm PO ONCE PRN; Protocol PRN Reason: Hypoglycemia Protocol Docusate Sodium (Colace) 100 mg PO BID [facility] Last Admin: 02/26/18 17:35 Dose: 100 mg Glucagon (Glucagen Diagnostic Kit) 0 mg IM STAT PRN; Protocol PRN Reason: Hypoglycemia Protocol Heparin Sodium (Porcine) (Heparin) 5,000 units SC Q8 [facility] Last Admin: 02/26/18 14:38 Dose: 5,000 units Dextrose (Dextrose 5% In Water 1000 Ml) 1,000 mls @ 0 mls/hr IV .Q0M PRN; Protocol; Per Protocol PRN Reason: Hypoglycemia Protocol Piperacillin Sod/Tazobactam Sod (Zosyn 3.375 Gm Iv Premix) 3.375 gm in 50 mls @ 100 mls/hr IVPB Q6H [facility] PRN Reason: Protocol Stop: 02/26/18 23:59 Last Admin: 02/26/18 10:41 Dose: 100 mls/hr Vancomycin HCl 1,500 mg/ (Sodium Chloride) 500 mls @ 333.333 mls/hr IVPB Q12H [facility] PRN Reason: Protocol Stop: 02/26/18 23:59 Last Admin: 02/26/18 12:34 Dose: 333.333 mls/hr Insulin Human Regular (Novolin R) 0 unit SC ACHS [facility] PRN Reason: Protocol Last Admin: 02/26/18 17:37 Dose: Not Given Losartan Potassium (Cozaar) 50 mg PO Q12H [facility] Last Admin: 02/26/18 10:40 Dose: 50 mg Morphine Sulfate (Morphine) 1 mg IVP Q4 PRN PRN Reason: Pain, moderate (4-7) Last Admin: 02/26/18 10:40 Dose: 1 mg Ondansetron HCl (Zofran Inj) 4 mg IVP Q6H PRN PRN Reason: Nausea/Vomiting Pantoprazole Sodium (Protonix Ec Tab) 40 mg PO DAILY [facility] Last Admin: 02/26/18 10:40 Dose: 40 mg Pregabalin (Lyrica) 25 mg PO HS [facility] Last Admin: 02/25/18 21:26 Dose: 25 mg Saccharomyces Boulardii (Florastor) 250 mg PO BID [facility] Last Admin: 02/26/18 17:35 Dose: 250 mg - Labs Labs: 02/26/18 07:46 02/26/18 07:46 PT 10.2 SECONDS (9.7-12.2) 02/23/18 01:52 INR 0.9 02/23/18 01:52 APTT 32 SECONDS (21-34) 02/23/18 01:52 - Constitutional Appears: Non-toxic, Chronically Ill - Head Exam Head Exam: NORMOCEPHALIC - Eye Exam Eye Exam: PERRL - ENT Exam ENT Exam: Mucous Membranes Dry - Neck Exam Neck Exam: absent: Lymphadenopathy - Respiratory Exam Respiratory Exam: Decreased Breath Sounds - Cardiovascular Exam Cardiovascular Exam: REGULAR RHYTHM - GI/Abdominal Exam GI & Abdominal Exam: Distended, Soft Assessment and Plan (1) Open fracture of right ankle Status: Acute (2) Acute left lumbar radiculopathy Status: Acute (3) Acute lumbar radiculopathy Status: Acute (4) Ambulatory dysfunction Status: Acute (5) Anemia Status: Acute (6) Ankle pain Status: Acute
[2018-02-26] MEDS: Albuterol-Ipratrop 3 mg / 0.5 (3 ml) UD INH PRN (22:40)
[2018-02-27 07:13] LABS: BASO % 0.5 % (0.0-2.0); EOS # 0.2 K/uL (0.0-0.7); EOS % 2.5 % (0.0-4.0); HEMOGLOBIN 9.2 g/dL (11.0-16.0); LYMPH # 0.9 K/uL (1.0-4.3); LYMPH % 10.1 % (20.0-40.0); MEAN CELL VOLUME 81.9 fL (81.0-99.0); MEAN CORPUSCULAR HEMOGLOBIN 27.3 pg (27.0-31.0); MEAN CORPUSCULAR HGB CONC 33.4 g/dL (33.0-37.0); MEAN PLATELET VOLUME 8.6 fL (7.2-11.7); MONO # 0.7 K/uL (0.0-0.8); MONO % 7.9 % (0.0-10.0); NEUT # 7.2 K/uL (1.8-7.0); RBC 3.38 Mil/uL (3.80-5.20); RED CELL DISTRIBUTION WIDTH 13.8 % (11.5-14.5); WHITE BLOOD COUNT 9.2 K/uL (4.8-10.8)
[2018-02-27 07:20] LABS: ALB/GLOB RATIO 0.9 (1.0-2.1); ALBUMIN 3.3 g/dL (3.5-5.0); ALT/SGPT 22 U/L (9-52); AST/SGOT 20 U/L (14-36); BLOOD UREA NITROGEN 8 mg/dL (7-17); CALCIUM 8.7 mg/dl (8.6-10.4); GFR AFRICAN-AMERICAN > 60; GFR NON-AFRICAN AMERICAN > 60
[2018-02-27] MEDS: (Novolin R) Insulin Human Regular 100 units/ml vial SC SCH ×4 (08:13→22:34)
[2018-02-27] MEDS: Saccharomyces Boulardi 250 mg Cap PO SCH ×2 (09:23→17:40)
[2018-02-27] MEDS: Pantoprazole 40 mg EC Tab PO SCH (09:23)
--- NOTE | 2018-02-27 11:27 | PN ---
DATE: LOCATION: [facility], [facility]. SUBJECTIVE: This is a 77-year-old female, seen and examined early this morning with reported urine incontinence and softer stool as per the patient's statement, but no reported actual chest pain, palpitation, significant shortness of breath, chills, or fever. The patient denies any recent history of active bleeding despite subsequent drop of her hemoglobin and hematocrit. The entire chart is reviewed including, but not limited to most recent lab and radiology study results, current and the previous medication list, current and the previous medical events. Case discussed with the staff as well as some family member as before. Today's hemoglobin is 9.3, hematocrit 27.8, and today's blood glucose level of 174. Rest of the lab is still pending. The patient's cancer markers ordered before the report and no report so far to be reordered again. The patient still has complaint of rectal pain on and off. PHYSICAL EXAMINATION GENERAL: A 77-year-old female. VITAL SIGNS: Afebrile, pulse of 92, respiratory rate 20 to 22, blood pressure 142/76. HEENT: Pale, dry oral mucous membranes, nonicteric sclera. LUNGS: Few scattered crepitations. Decreased air entry at bases. HEART: Positive S1 and S2. ABDOMEN: No mass or organomegaly. No rebound tenderness or guarding. EXTREMITIES: With right lower extremity drift and edematous changes bilaterally. No clubbing or cyanosis. NEUROLOGICAL: No reported new neurological deficits, sensory or motor. IMPRESSION: 1. The patient with internal hemorrhoids by history most likely. 2. Status post closed reduction of fracture of the right ankle and fibular reduction. 3. Recent change of bowel movement habit. 4. Anemia, most likely secondary to chronic disease, however, upper and lower gastrointestinal blood loss should be kept in mind. 5. Known history of hypertension, congestive heart failure, peptic ulcer disease, diabetes mellitus, with bronchial asthma. 6. Known history of status post ____ surgery with history of rheumatoid arthritis. SUGGESTIONS: 1. Continue current management. 2. Repeat stool for occult blood. 3. Follow up cancer markers. 4. Endoscopic evaluation of upper GI tract when the patient is stable clinically. 6. Further recommendations to follow. Alondra Harper MD [facility] # [id number]
--- NOTE | 2018-02-27 12:08 | CP.PCM.PN ---
Subjective - Date & Time of Evaluation Date of Evaluation: 02/27/18 Time of Evaluation: 12:08 - Subjective Subjective: Podiatry Progress Note- Dr. Sierra 77 yo female pt POD#4 ORIF R ankle fx with primary closure R ankle laceration. Pt seen sitting upright in bed with right leg not elevated. Patient hemodynamically stable and NAD. Reports pain to RLE however well-controlled. States she has been compliant with use of incentive spirometer but broke it this morning after it fell on the ground. Offers no other complaints. Denies N/V /F/D/C/SOB/JJ/dizziness/chest pain/calf pain. Objective - Vital Signs/Intake and Output Vital Signs (last 24 hours): Temp Pulse Resp BP Pulse Ox 98.0 F 85 18 139/81 97 02/27/18 07:20 02/27/18 09:23 02/27/18 07:20 02/27/18 09:23 02/27/18 07:20 Intake and Output: 02/27/18 02/27/18 06:59 18:59 Intake Total 340 Balance 340 - Medications Medications: Current Medications Albuterol/Ipratropium (Duoneb 3 Mg/0.5 Mg (3 Ml) Ud) 3 ml INH RQ6 PRN PRN Reason: Shortness of Breath Last Admin: 02/26/18 22:40 Dose: 3 ml Dextrose (Dextrose 50% Inj) 0 ml IV STAT PRN; Protocol PRN Reason: Hypoglycemia Protocol Dextrose (Glutose 15) 0 gm PO ONCE PRN; Protocol PRN Reason: Hypoglycemia Protocol Docusate Sodium (Colace) 100 mg PO BID [facility] Last Admin: 02/27/18 09:23 Dose: 100 mg Glucagon (Glucagen Diagnostic Kit) 0 mg IM STAT PRN; Protocol PRN Reason: Hypoglycemia Protocol Heparin Sodium (Porcine) (Heparin) 5,000 units SC Q8 [facility] Last Admin: 02/27/18 05:46 Dose: 5,000 units Dextrose (Dextrose 5% In Water 1000 Ml) 1,000 mls @ 0 mls/hr IV .Q0M PRN; Protocol; Per Protocol PRN Reason: Hypoglycemia Protocol Insulin Human Regular (Novolin R) 0 unit SC ACHS G[facility]ELA PRN Reason: Protocol Last Admin: 02/27/18 08:13 Dose: Not Given Losartan Potassium (Cozaar) 50 mg PO Q12H [facility] Last Admin: 02/27/18 09:23 Dose: 50 mg Morphine Sulfate (Morphine) 1 mg IVP Q4 PRN PRN Reason: Pain, moderate (4-7) Last Admin: 02/26/18 10:40 Dose: 1 mg Ondansetron HCl (Zofran Inj) 4 mg IVP Q6H PRN PRN Reason: Nausea/Vomiting Pantoprazole Sodium (Protonix Ec Tab) 40 mg PO DAILY [facility] Last Admin: 02/27/18 09:23 Dose: 40 mg Pregabalin (Lyrica) 25 mg PO HS [facility] Last Admin: 02/26/18 21:31 Dose: 25 mg Saccharomyces Boulardii (Florastor) 250 mg PO BID [facility] Stop: 03/28/18 10:00 Last Admin: 02/27/18 09:23 Dose: 250 mg - Labs Labs: 02/27/18 07:00 02/27/18 07:00 PT 10.2 SECONDS (9.7-12.2) 02/23/18 01:52 INR 0.9 02/23/18 01:52 APTT 32 SECONDS (21-34) 02/23/18 01:52 - Constitutional Appears: Well, Non-toxic, No Acute Distress - Extremities Exam Additional comments: RLE focused physical exam: AO splint remains clean/dry/intact with no strikethrough noted Neurovascular status intact to digits x5 No pain upon calf squeeze - Neurological Exam Neurological Exam: Alert, Awake, Oriented x3 - Psychiatric Exam Psychiatric exam: Normal Affect, Normal Mood Assessment and Plan - Assessment and Plan (Free Text) Assessment: 77 yo female patient POD#4 closed reduction at bedside of R open ankle fracture , ORIF R open ankle fx, primary closure of laceration R ankle Plan: Pt seen and evaluated Discussed with attending, Dr. Sierra Afebrile, WBC WNL AO splint maintained Reminded of strict NWB to RLE and bedrest, she is to elevate RLE at all times ( toes to nose) and c/w Ice behind the knee Pain control - morphine 1mg IV, Lyrica 25mg PO Encourage incentive spirometer 10x every hour- reordered Abx completed Dispo: Pending auth for discharge to [facility]) Stable per podiatry for discharge to [facility] Pt is to f/u with Dr. Sierra at [facility] as outpatient Podiatry will continue to follow
--- NOTE | 2018-02-27 13:54 | CP.PCM.PN ---
Subjective - Date & Time of Evaluation Date of Evaluation: 02/27/18 Time of Evaluation: 13:52 - Subjective Subjective: PGY-[address] Mignon Sierra. No acute events noted overnight. Patient s/p closed reduction with podiatry and s/p ORIF of right ankle fibular fracture POD #4. She complained of constipation. She said her pain is controlled. She denied chest pain, shortness of breath, excessive bleeding from wound site, nausea, vomiting, fevers. Objective - Vital Signs/Intake and Output Vital Signs (last 24 hours): Temp Pulse Resp BP Pulse Ox 98.0 F 85 18 139/81 97 02/27/18 07:20 02/27/18 09:23 02/27/18 07:20 02/27/18 09:23 02/27/18 07:20 Intake and Output: 02/27/18 02/27/18 06:59 18:59 Intake Total 340 Balance 340 - Medications Medications: Current Medications Albuterol/Ipratropium (Duoneb 3 Mg/0.5 Mg (3 Ml) Ud) 3 ml INH RQ6 PRN PRN Reason: Shortness of Breath Last Admin: 02/26/18 22:40 Dose: 3 ml Dextrose (Dextrose 50% Inj) 0 ml IV STAT PRN; Protocol PRN Reason: Hypoglycemia Protocol Dextrose (Glutose 15) 0 gm PO ONCE PRN; Protocol PRN Reason: Hypoglycemia Protocol Docusate Sodium (Colace) 100 mg PO BID [facility] Last Admin: 02/27/18 09:23 Dose: 100 mg Glucagon (Glucagen Diagnostic Kit) 0 mg IM STAT PRN; Protocol PRN Reason: Hypoglycemia Protocol Heparin Sodium (Porcine) (Heparin) 5,000 units SC Q8 [facility] Last Admin: 02/27/18 13:16 Dose: 5,000 units Dextrose (Dextrose 5% In Water 1000 Ml) 1,000 mls @ 0 mls/hr IV .Q0M PRN; Protocol; Per Protocol PRN Reason: Hypoglycemia Protocol Insulin Human Regular (Novolin R) 0 unit SC ACHS [facility] PRN Reason: Protocol Last Admin: 02/27/18 12:37 Dose: Not Given Losartan Potassium (Cozaar) 50 mg PO Q12H [facility] Last Admin: 02/27/18 09:23 Dose: 50 mg Morphine Sulfate (Morphine) 1 mg IVP Q4 PRN PRN Reason: Pain, moderate (4-7) Last Admin: 02/26/18 10:40 Dose: 1 mg Ondansetron HCl (Zofran Inj) 4 mg IVP Q6H PRN PRN Reason: Nausea/Vomiting Pantoprazole Sodium (Protonix Ec Tab) 40 mg PO DAILY [facility] Last Admin: 02/27/18 09:23 Dose: 40 mg Pregabalin (Lyrica) 25 mg PO HS [facility] Last Admin: 02/26/18 21:31 Dose: 25 mg Saccharomyces Boulardii (Florastor) 250 mg PO BID [facility] Stop: 03/28/18 10:00 Last Admin: 02/27/18 09:23 Dose: 250 mg - Labs Labs: 02/27/18 07:00 02/27/18 07:00 PT 10.2 SECONDS (9.7-12.2) 02/23/18 01:52 INR 0.9 02/23/18 01:52 APTT 32 SECONDS (21-34) 02/23/18 01:52 - Additional Findings Additional findings: - Constitutional Appears: No Acute Distress - Head Exam Head Exam: ATRAUMATIC, NORMAL INSPECTION - Eye Exam Eye Exam: EOMI, Normal appearance - ENT Exam ENT Exam: Mucous Membranes Moist - Respiratory Exam Respiratory Exam: Clear to Auscultation Bilateral, NORMAL BREATHING PATTERN - Cardiovascular Exam Cardiovascular Exam: REGULAR RHYTHM, RRR, +S1, +S2, Systolic Murmur. absent: JVD Holosystolic Murmur heard loudest at the Right Second Intercostal Space - GI/Abdominal Exam GI & Abdominal Exam: Normal Bowel Sounds, Soft. absent: Tenderness Additional comments: obese - Rectal Exam Additional comments: Rectal performed 02/24/18: No gross blood seen on rectal. Discoloration 3 inches lateral to anus on right could have been site of previous fissure. No other evidence of fissure seen. No abnormal masses palpated. Skin tag inferior to right gluteal fold. - Extremities Exam Additional comments: Right LE cast in place, good dorsalis pedis pulses b/l - Neurological Exam Neurological exam: Alert, Oriented x3, right lower extremity sensations intact Assessment and Plan - Assessment and Plan (Free Text) Assessment: Right Ankle open fracture with Air in Soft Tissue Ortho Consult: Dr. Solorio --> help appreciated Infectious Disease consult, Dr Campbell * Agrees with Abx selection Podiatry consult, Dr Sierra * s/p closed reduction with podiatry afternoon 02/23/18, DPM Dr Willard * s/p 1.) ORIF of right ankle fibular fracture and syndesmotic injury. 2.) Irrigation and debridement of right ankle open fracture wound with primary closure. Performed evening 02/23/[address] Sierra. Keep right leg elevated Non weight bearing to right leg Ice to right leg Imaging: Ankle XRAY: Fractures of the distal right tibia and fibula with associated subluxation Chest XRAY: No active disease Lower extremity CT: Acute fractures of distal fibula and posterior malleolus of distal tibia. Disruption of ankle mortise with medial widening. Additional fractures as described in full report. Meds: Zosyn 3.375g IVP Q6H -> discontinued 02/27/18 00:00 Vancomcyin 1.5g IVPB Q12H -> discontinued 02/27/18 00:00 Florastor 250mg PO BID Morphine 1mg IVP Q4H PRN for moderate pain Colace 100mg PO BID History of DM ISS Accuchecks Hypoglycemia protocol A1c 6.9 Aortic Stenosis with Pulmonary HTN Exertional dyspnea Cardio Consult: Dr. Wu --> help appreciated * Spoke with Dr. Wu and stated repeat ECHO can be completed as routine * due to patient's chronic medical conditions such as exertional dyspnea, aortic stenosis and pulmonary HTN patient is a moderate to high risk. ECHO (12/02/2016): left ventricular ejection fraction within the normal range. Moderate valvular aortic stenosis. Mild to moderate tricuspid regurgitation. ECHO 02/24/18: EF 60%, Grade II pseudonormal filling dynamics, LA pressure mildly elevated, LA mildly dilated, AV appears trileaflet and calcified, mitral annular calcification is mild to moderate, mitral regurgitation is mild, tricuspid regurgitation is mild, no pulmonary hypertension Lipid Panel NORMAL Meds: Duoneb 3ml INH RQ6 PRN for shortness of breath Hx of Anal Fissure GI consulted, Dr Dennison * Patient may need colonoscopy when she is more stable clinically Stool occult performed 02/24/18 which was NEGATIVE No gross blood seen on rectal. Discoloration 3 inches lateral to anus on right could have been site of previous fissure. No evidence of fissure seen. No abnormal masses palpated. Skin tag inferior to right gluteal fold. CEA, CA 125 both NEGATIVE Meds: Will hold off on any medications (such as anusol, canasa) at this time as patient without any active issues 1st Degree Heart Block on EKG Prolonged QTc 473 Bilateral Feet Neuropathy Lyrica 25 mg PO HS HTN Continue home medications Losartan 50mg PO BID Lumbar Spinal Stenosis s/p spinal surgery 2018 With urinary incontinence since spinal surgery 2018 Inserted gallegos Meds: Cont home med Pregabalin 25mg PO HS Prophylaxis Protonix 40mg PO QD Heparin 5000u SC Q8H Vegetarian Diet Disposition: Patient will need anticoagulation for VTE prophylaxis for 35 days S /P ORIF of Right Ankle Fracture 02/23/18. She is currently on Heparin 5,000 Units SC Q8H. This can be changed to Lovenox once she goes home from [facility] if she is able to administer it herself. If not then she will have to continue Aspirin 81 mg PO 2x/day until 03/30/18. Spoke with Optometrist Owner Maria Antonia and she is awaiting insurance authorization for [facility]. Patient will also likely need home visiting nurse which should be arranged through [facility] upon her discharge there.
[2018-02-27] MEDS: Albuterol-Ipratrop 3 mg / 0.5 (3 ml) UD INH PRN (21:37)
[2018-02-27] MEDS: Morphine 4 MG/ML VIAL IVP PRN (21:50)
[2018-02-28] MEDS: (Novolin R) Insulin Human Regular 100 units/ml vial SC SCH ×4 (08:04→21:44)
[2018-02-28 08:08] LABS: BASO # 0.1 K/uL (0.0-0.2); BASO % 0.9 % (0.0-2.0); EOS # 0.2 K/uL (0.0-0.7); EOS % 1.9 % (0.0-4.0); HEMOGLOBIN 9.2 g/dL (11.0-16.0); LYMPH # 0.9 K/uL (1.0-4.3); LYMPH % 9.7 % (20.0-40.0); MEAN CORPUSCULAR HEMOGLOBIN 28.3 pg (27.0-31.0); MEAN CORPUSCULAR HGB CONC 34.5 g/dL (33.0-37.0); MEAN PLATELET VOLUME 8.6 fL (7.2-11.7); MONO # 0.9 K/uL (0.0-0.8); MONO % 9.7 % (0.0-10.0); NEUT # 7.5 K/uL (1.8-7.0); NEUT % 77.8 % (50.0-75.0); PLATELET COUNT 315 K/uL (130-400); RBC 3.26 Mil/uL (3.80-5.20); RED CELL DISTRIBUTION WIDTH 13.5 % (11.5-14.5); WHITE BLOOD COUNT 9.6 K/uL (4.8-10.8)
[2018-02-28 08:15] LABS: ALB/GLOB RATIO 0.9 (1.0-2.1); ALBUMIN 3.3 g/dL (3.5-5.0); ALT/SGPT 25 U/L (9-52); AST/SGOT 33 U/L (14-36); BLOOD UREA NITROGEN 10 mg/dL (7-17); CALCIUM 8.8 mg/dl (8.6-10.4); GFR AFRICAN-AMERICAN > 60; GFR NON-AFRICAN AMERICAN > 60
[2018-02-28 09:26] LABS: ANISOCYTOSIS SLIGHT; BANDS 1 % (0-2); BASOPHIL 1 % (0-2); EOSINOPHIL 2 % (0-4); HYPOCHROMIC SLIGHT; LARGE PLATELETS PRESENT; LYMPHOCYTE 10 % (20-40); MONOCYTE 8 % (0-10); NEUTROPHIL 78 % (50-75); PLATELET ESTIMATE NORMAL (NORMAL); POLYCHROMIC SLIGHT; TOTAL CELLS COUNTED 100; TOXIC GRANULATION PRESENT
[2018-02-28 09:27] LABS: GIANT PLATELETS PRESENT
--- NOTE | 2018-02-28 10:28 | CP.PCM.PN ---
<La Nena Collazo - Last Filed: 02/28/18 10:21> Subjective - Date & Time of Evaluation Date of Evaluation: 02/28/18 Time of Evaluation: 09:00 - Subjective Subjective: Medicine Note for Hospitalist Service- Dr. Tarah Sierra Patient was seen and examined. Patient reports she had a bowel movement last night. Reports mild pain when she moves her right ankle. Patient is tolerating diet and her pain is well controlled. Denied any chest pain or shortness of breath. 12 point ROS unremarkable, unless otherwise noted. Objective - Vital Signs/Intake and Output Vital Signs (last 24 hours): Temp Pulse Resp BP Pulse Ox 97.6 F 83 18 147/77 96 02/28/18 07:20 02/28/18 07:20 02/28/18 07:20 02/28/18 07:20 02/28/18 07:20 - Medications Medications: Current Medications Albuterol/Ipratropium (Duoneb 3 Mg/0.5 Mg (3 Ml) Ud) 3 ml INH RQ6 PRN PRN Reason: Shortness of Breath Last Admin: 02/27/18 21:37 Dose: 3 ml Dextrose (Dextrose 50% Inj) 0 ml IV STAT PRN; Protocol PRN Reason: Hypoglycemia Protocol Dextrose (Glutose 15) 0 gm PO ONCE PRN; Protocol PRN Reason: Hypoglycemia Protocol Docusate Sodium (Colace) 100 mg PO BID [facility] Last Admin: 02/27/18 17:40 Dose: 100 mg Glucagon (Glucagen Diagnostic Kit) 0 mg IM STAT PRN; Protocol PRN Reason: Hypoglycemia Protocol Heparin Sodium (Porcine) (Heparin) 5,000 units SC Q8 [facility] Last Admin: 02/28/18 05:46 Dose: 5,000 units Dextrose (Dextrose 5% In Water 1000 Ml) 1,000 mls @ 0 mls/hr IV .Q0M PRN; Protocol; Per Protocol PRN Reason: Hypoglycemia Protocol Insulin Human Regular (Novolin R) 0 unit SC ACHS [facility] PRN Reason: Protocol Last Admin: 02/28/18 08:04 Dose: Not Given Losartan Potassium (Cozaar) 50 mg PO Q12H [facility] Last Admin: 02/27/18 21:44 Dose: 50 mg Morphine Sulfate (Morphine) 1 mg IVP Q4 PRN PRN Reason: Pain, moderate (4-7) Last Admin: 02/27/18 21:50 Dose: 1 mg Ondansetron HCl (Zofran Inj) 4 mg IVP Q6H PRN PRN Reason: Nausea/Vomiting Pantoprazole Sodium (Protonix Ec Tab) 40 mg PO DAILY [facility] Last Admin: 02/27/18 09:23 Dose: 40 mg Pregabalin (Lyrica) 25 mg PO HS [facility] Last Admin: 02/27/18 22:34 Dose: Not Given Saccharomyces Boulardii (Florastor) 250 mg PO BID [facility] Stop: 03/28/18 10:00 Last Admin: 02/27/18 17:40 Dose: 250 mg - Labs Labs: 02/28/18 07:47 02/28/18 07:47 PT 10.2 SECONDS (9.7-12.2) 02/23/18 01:52 INR 0.9 02/23/18 01:52 APTT 32 SECONDS (21-34) 02/23/18 01:52 - Constitutional Appears: No Acute Distress - Head Exam Head Exam: NORMAL INSPECTION, NORMOCEPHALIC - Eye Exam Eye Exam: EOMI, Normal appearance, PERRL Pupil Exam: NORMAL ACCOMODATION - ENT Exam ENT Exam: Mucous Membranes Moist - Respiratory Exam Respiratory Exam: Clear to Ausculation Bilateral, NORMAL BREATHING PATTERN. absent: Decreased Breath Sounds - Cardiovascular Exam Cardiovascular Exam: REGULAR RHYTHM, Murmur Additional comments: - systolic murmur - GI/Abdominal Exam GI & Abdominal Exam: Soft, Normal Bowel Sounds. absent: Distended, Tenderness - Rectal Exam Rectal Exam: Deferred - Extremities Exam Additional comments: Right LE cast in place, good dorsalis pedis pulses b/l - Neurological Exam Neurological Exam: Alert, Awake, Oriented x3 - Psychiatric Exam Psychiatric exam: Normal Affect, Normal Mood - Skin Skin Exam: Dry, Intact, Normal Color, Warm Assessment and Plan - Assessment and Plan (Free Text) Plan: Right Ankle open fracture with Air in Soft Tissue Ortho Consult: Dr. Solorio --> help appreciated Infectious Disease consult, Dr Campbell Podiatry consult, Dr Sierra * s/p closed reduction with podiatry afternoon 02/23/18, DPM Dr Willard * s/p 1.) ORIF of right ankle fibular fracture and syndesmotic injury. 2.) Irrigation and debridement of right ankle open fracture wound with primary closure. Performed evening 02/23/[address] Sierra. Keep right leg elevated Non weight bearing to right leg Ice to right leg Imaging: Ankle XRAY: Fractures of the distal right tibia and fibula with associated subluxation Chest XRAY: No active disease Lower extremity CT: Acute fractures of distal fibula and posterior malleolus of distal tibia. Disruption of ankle mortise with medial widening. Additional fractures as described in full report. Meds: Zosyn 3.375g IVP Q6H -> discontinued 02/27/18 00:00 Vancomcyin 1.5g IVPB Q12H -> discontinued 02/27/18 00:00 Florastor 250mg PO BID Morphine 1mg IVP Q4H PRN for moderate pain Colace 100mg PO BID History of DM ISS Accuchecks Hypoglycemia protocol A1c 6.9 Aortic Stenosis with Pulmonary HTN Exertional dyspnea Cardio Consult: Dr. Wu --> help appreciated * Spoke with Dr. Wu and stated repeat ECHO can be completed as routine * due to patient's chronic medical conditions such as exertional dyspnea, aortic stenosis and pulmonary HTN patient is a moderate to high risk. ECHO (12/02/2016): left ventricular ejection fraction within the normal range. Moderate valvular aortic stenosis. Mild to moderate tricuspid regurgitation. ECHO 02/24/18: EF 60%, Grade II pseudonormal filling dynamics, LA pressure mildly elevated, LA mildly dilated, AV appears trileaflet and calcified, mitral annular calcification is mild to moderate, mitral regurgitation is mild, tricuspid regurgitation is mild, no pulmonary hypertension Lipid Panel NORMAL Meds: Duoneb 3ml INH RQ6 PRN for shortness of breath Hx of Anal Fissure GI consulted, Dr Dennison * Patient may need colonoscopy when she is more stable clinically Stool occult performed 02/24/18 which was NEGATIVE No gross blood seen on rectal. Discoloration 3 inches lateral to anus on right could have been site of previous fissure. No evidence of fissure seen. No abnormal masses palpated. Skin tag inferior to right gluteal fold. CEA, CA 125 both NEGATIVE Meds: Will hold off on any medications (such as anusol, canasa) at this time as patient without any active issues 1st Degree Heart Block on EKG Prolonged QTc 473 Bilateral Feet Neuropathy Lyrica 25 mg PO HS HTN Continue home medications Losartan 50mg PO BID Lumbar Spinal Stenosis s/p spinal surgery 2018 With urinary incontinence since spinal surgery 2018 Inserted gallegos Meds: Cont home med Pregabalin 25mg PO HS Prophylaxis Protonix 40mg PO QD Heparin 5000u SC Q8H Vegetarian Diet Disposition: Patient will need anticoagulation for VTE prophylaxis for 35 days S /P ORIF of Right Ankle Fracture 02/23/18. She is currently on Heparin 5,000 Units SC Q8H. This can be changed to Lovenox once she goes home from [facility] if she is able to administer it herself. If not then she will have to continue Aspirin 81 mg PO 2x/day until 03/30/18. Will need to call pharmacy to confirm home medications: [phone]. Spoke with Teleprinter Maria Antonia and she is awaiting insurance authorization for [facility].Patient will also likely need home visiting nurse which should be arranged through [facility] upon her discharge there. Patient will need to have sutures removed 2-3 weeks after surgery 02/23/[address] Sierra on 03/08/18 . As per PMD - wants patient to follow up with Neurology Dr. Domenic Sharma for her urinary incontinence s/p lumbar surgery [phone]. DW La Nena Sweeney DO, PGY-1 <Dion Sierra - Last Filed: 02/28/18 19:30> Objective - Vital Signs/Intake and Output Vital Signs (last 24 hours): Temp Pulse Resp BP Pulse Ox 97.6 F 99 H 18 146/81 96 02/28/18 07:20 02/28/18 10:32 02/28/18 07:20 02/28/18 10:32 02/28/18 07:20 Intake and Output: 02/28/18 03/01/18 18:59 06:59 Intake Total 300 Balance 300 - Medications Medications: Current Medications Albuterol/Ipratropium (Duoneb 3 Mg/0.5 Mg (3 Ml) Ud) 3 ml INH RQ6 PRN PRN Reason: Shortness of Breath Last Admin: 02/28/18 16:18 Dose: 3 ml Dextrose (Dextrose 50% Inj) 0 ml IV STAT PRN; Protocol PRN Reason: Hypoglycemia Protocol Dextrose (Glutose 15) 0 gm PO ONCE PRN; Protocol PRN Reason: Hypoglycemia Protocol Docusate Sodium (Colace) 100 mg PO BID [facility] Last Admin: 02/28/18 17:16 Dose: 100 mg Glucagon (Glucagen Diagnostic Kit) 0 mg IM STAT PRN; Protocol PRN Reason: Hypoglycemia Protocol Heparin Sodium (Porcine) (Heparin) 5,000 units SC Q8 [facility] Last Admin: 02/28/18 13:36 Dose: 5,000 units Dextrose (Dextrose 5% In Water 1000 Ml) 1,000 mls @ 0 mls/hr IV .Q0M PRN; Protocol; Per Protocol PRN Reason: Hypoglycemia Protocol Ibuprofen (Motrin Tab) 400 mg PO Q6H PRN PRN Reason: Pain, Mild (1-3) Last Admin: 02/28/18 13:36 Dose: 400 mg Insulin Human Regular (Novolin R) 0 unit SC ACHS [facility] PRN Reason: Protocol Last Admin: 02/28/18 17:16 Dose: Not Given Losartan Potassium (Cozaar) 50 mg PO Q12H [facility] Last Admin: 02/28/18 10:33 Dose: 50 mg Ondansetron HCl (Zofran Inj) 4 mg IVP Q6H PRN PRN Reason: Nausea/Vomiting Pantoprazole Sodium (Protonix Ec Tab) 40 mg PO DAILY [facility] Last Admin: 02/28/18 10:33 Dose: 40 mg Pregabalin (Lyrica) 25 mg PO HS [facility] Last Admin: 02/27/18 22:34 Dose: Not Given Saccharomyces Boulardii (Florastor) 250 mg PO BID [facility] Stop: 03/28/18 10:00 Last Admin: 02/28/18 17:16 Dose: 250 mg - Labs Labs: 02/28/18 07:47 02/28/18 07:47 PT 10.2 SECONDS (9.7-12.2) 02/23/18 01:52 INR 0.9 02/23/18 01:52 APTT 32 SECONDS (21-34) 02/23/18 01:52 Attending/Attestation - Attestation I have personally seen and examined this patient.: Yes I have fully participated in the care of the patient.: Yes I have reviewed all pertinent clinical information, including history, physical exam and plan: Yes Notes (Text): 02/28/18 19:29 Patient was seen and examined at 8:45 AM Exam, assessment and plan were thoroughly gone over with the resident. Dion Sierra D.O.
[2018-02-28] MEDS: Saccharomyces Boulardi 250 mg Cap PO SCH ×2 (10:33→17:16)
[2018-02-28] MEDS: Pantoprazole 40 mg EC Tab PO SCH (10:33)
--- NOTE | 2018-02-28 11:38 | PN ---
DATE: 02/28/2018 LOCATION: 660, bed B. SUBJECTIVE: This 77-year-old female seen and examined in rounds early this morning with reported again urine incontinent with some change of bowel movement but no reported active bleeding with report of nausea but no reported hematemesis, without complain of right lower extremity pain on and off. Questioning the patient furthermore, she was complaining of constipation for which Dulcolax was added to the system before. No reported chest pain, palpitation, chills, or fever. The entire chart is reviewed including, but not limited to, most recent lab and radiology study results, current and previous medication list, current and previous medical events. Today's blood glucose level reported to be 172; however, the patient is still having low hemoglobin and hematocrit but normal platelet count and low albumin with normal cancer markers of CEA and CA-125. PHYSICAL EXAMINATION: GENERAL: A 77-year-old female, appeared to be awake, alert, oriented. VITAL SIGNS: Afebrile with pulse of 90, respiratory rate 20 to 22, blood pressure of 144/74. HEENT: Showed pale, dry oral mucous membranes, nonicteric sclera. LUNGS: Few scattered crepitations. Decreased air entry at bases. HEART: Positive S1 and S2. ABDOMEN: Soft, mildly obese with slight generalized tenderness. No mass or organomegaly. No rebound tenderness or guarding. EXTREMITIES: With cast on the right lower extremity with some edematous changes. The patient is status post closed reduction. NEUROLOGICAL: No reported new neurological deficits, sensory or motor. IMPRESSION: 1. Status post right ankle fibular fracture with closed reduction. 2. Known history of hypertension. 3. Known history of diabetes mellitus. 4. Aortic stenosis with reported pulmonary hypertension. 5. Anal fissure with internal hemorrhoids. No reported active bleeding, however, and rectal pain has been gradually improved but not completely. 6. Reported history of lumbar spinal stenosis. SUGGESTIONS: 1. Continue current management. 2. If the patient's constipation continues, then Citrate of Magnesia 30 mL twice a day to be added to the system. 3. Further recommendations to follow. MD Alondra Christine [id number]
[2018-02-28] MEDS: Albuterol-Ipratrop 3 mg / 0.5 (3 ml) UD INH PRN ×2 (16:18→20:31)
--- NOTE | 2018-02-28 20:57 | CP.PCM.PN ---
Subjective - Date & Time of Evaluation Date of Evaluation: 02/28/18 Time of Evaluation: 12:00 - Subjective Subjective: Podiatry Progress Note- Dr. Sierra 77 yo female pt POD#5 ORIF R ankle fx with primary closure R ankle laceration. Patient hemodynamically stable and NAD. NAEON. Reports continued pain to RLE, well-controlled. Posterior splint clean/dry/intact and elevated on pillows. Offers no other complaints. Denies N/V/F/D/C/SOB/JJ/dizziness/chest pain/calf pain. Objective - Vital Signs/Intake and Output Vital Signs (last 24 hours): Temp Pulse Resp BP Pulse Ox 97.6 F 99 H 18 146/81 96 02/28/18 07:20 02/28/18 10:32 02/28/18 07:20 02/28/18 10:32 02/28/18 07:20 Intake and Output: 02/28/18 03/01/18 18:59 06:59 Intake Total 300 Balance 300 - Medications Medications: Current Medications Albuterol/Ipratropium (Duoneb 3 Mg/0.5 Mg (3 Ml) Ud) 3 ml INH RQ6 PRN PRN Reason: Shortness of Breath Last Admin: 02/28/18 20:31 Dose: 3 ml Dextrose (Dextrose 50% Inj) 0 ml IV STAT PRN; Protocol PRN Reason: Hypoglycemia Protocol Dextrose (Glutose 15) 0 gm PO ONCE PRN; Protocol PRN Reason: Hypoglycemia Protocol Docusate Sodium (Colace) 100 mg PO BID [facility] Last Admin: 02/28/18 17:16 Dose: 100 mg Glucagon (Glucagen Diagnostic Kit) 0 mg IM STAT PRN; Protocol PRN Reason: Hypoglycemia Protocol Heparin Sodium (Porcine) (Heparin) 5,000 units SC Q8 [facility] Last Admin: 02/28/18 13:36 Dose: 5,000 units Dextrose (Dextrose 5% In Water 1000 Ml) 1,000 mls @ 0 mls/hr IV .Q0M PRN; Protocol; Per Protocol PRN Reason: Hypoglycemia Protocol Ibuprofen (Motrin Tab) 400 mg PO Q6H PRN PRN Reason: Pain, Mild (1-3) Last Admin: 02/28/18 13:36 Dose: 400 mg Insulin Human Regular (Novolin R) 0 unit SC ACHS [facility] PRN Reason: Protocol Last Admin: 02/28/18 17:16 Dose: Not Given Losartan Potassium (Cozaar) 50 mg PO Q12H [facility] Last Admin: 02/28/18 10:33 Dose: 50 mg Ondansetron HCl (Zofran Inj) 4 mg IVP Q6H PRN PRN Reason: Nausea/Vomiting Pantoprazole Sodium (Protonix Ec Tab) 40 mg PO DAILY [facility] Last Admin: 02/28/18 10:33 Dose: 40 mg Pregabalin (Lyrica) 25 mg PO HS [facility] Last Admin: 02/27/18 22:34 Dose: Not Given Saccharomyces Boulardii (Florastor) 250 mg PO BID [facility] Stop: 03/28/18 10:00 Last Admin: 02/28/18 17:16 Dose: 250 mg - Labs Labs: 02/28/18 07:47 02/28/18 07:47 PT 10.2 SECONDS (9.7-12.2) 02/23/18 01:52 INR 0.9 02/23/18 01:52 APTT 32 SECONDS (21-34) 02/23/18 01:52 - Constitutional Appears: Well, Non-toxic, No Acute Distress - Extremities Exam Additional comments: RLE focused physical exam: AO splint remains clean/dry/intact with no strikethrough noted Neurovascular status intact to digits x5 No pain upon calf squeeze - Neurological Exam Neurological Exam: Alert, Awake, Oriented x3 - Psychiatric Exam Psychiatric exam: Normal Affect, Normal Mood Assessment and Plan - Assessment and Plan (Free Text) Assessment: 77 yo female patient POD#5 closed reduction at bedside of R open ankle fracture , ORIF R open ankle fx, primary closure of laceration R ankle Plan: Pt seen and evaluated Discussed with attending, Dr. Sierra Afebripatricia, WBC WNL AO splint maintained Activity: strict NWB to RLE bedrest only, elevate RLE at all times, c/w Ice behind the knee Pain control per primary team Encourage use of incentive spirometer 10x every hour Dispo: Pending auth for discharge to [facility]) Stable per podiatry for discharge to [facility] Pt is to f/u with Dr. Sierra at [facility] [place] [facility] as outpatient Podiatry will continue to follow
[2018-02-28] MEDS ORDERED: Oxycodone/Acetaminophen 5/325 mg Tab PO PRN ×2 (21:13)
--- NOTE | 2018-02-28 21:42 | CP.PCM.PCO ---
Physician Communication Note - Physician Communication Note Physician Communication Note: Call Pharmacy 03/01/18 @ [phone] to confirm Rx for Bladder Incontinence
--- NOTE | 2018-02-28 23:13 | CP.PCM.PN ---
Subjective - Date & Time of Evaluation Date of Evaluation: 02/28/18 Time of Evaluation: 16:30 - Subjective Subjective: Patient seen and evaluated Denies chest pain and dyspnea Objective - Vital Signs/Intake and Output Vital Signs (last 24 hours): Temp Pulse Resp BP Pulse Ox 97.6 F 99 H 18 146/81 96 02/28/18 07:20 02/28/18 10:32 02/28/18 07:20 02/28/18 10:32 02/28/18 07:20 Intake and Output: 02/28/18 03/01/18 18:59 06:59 Intake Total 300 Balance 300 - Medications Medications: Current Medications Acetaminophen (Tylenol 325mg Tab) 650 mg PO Q6 PRN PRN Reason: Pain, Mild (1-3) Albuterol/Ipratropium (Duoneb 3 Mg/0.5 Mg (3 Ml) Ud) 3 ml INH RQ6 PRN PRN Reason: Shortness of Breath Last Admin: 02/28/18 20:31 Dose: 3 ml Dextrose (Dextrose 50% Inj) 0 ml IV STAT PRN; Protocol PRN Reason: Hypoglycemia Protocol Dextrose (Glutose 15) 0 gm PO ONCE PRN; Protocol PRN Reason: Hypoglycemia Protocol Docusate Sodium (Colace) 100 mg PO BID [facility] Last Admin: 02/28/18 17:16 Dose: 100 mg Glucagon (Glucagen Diagnostic Kit) 0 mg IM STAT PRN; Protocol PRN Reason: Hypoglycemia Protocol Heparin Sodium (Porcine) (Heparin) 5,000 units SC Q8 [facility] Last Admin: 02/28/18 21:32 Dose: 5,000 units Dextrose (Dextrose 5% In Water 1000 Ml) 1,000 mls @ 0 mls/hr IV .Q0M PRN; Protocol; Per Protocol PRN Reason: Hypoglycemia Protocol Ibuprofen (Motrin Tab) 400 mg PO Q6H PRN PRN Reason: Pain, Mild (1-3) Last Admin: 02/28/18 13:36 Dose: 400 mg Insulin Human Regular (Novolin R) 0 unit SC ACHS [facility] PRN Reason: Protocol Last Admin: 02/28/18 21:44 Dose: Not Given Losartan Potassium (Cozaar) 50 mg PO Q12H [facility] Last Admin: 02/28/18 21:32 Dose: 50 mg Ondansetron HCl (Zofran Inj) 4 mg IVP Q6H PRN PRN Reason: Nausea/Vomiting Oxycodone/Acetaminophen (Percocet 5/325 Mg Tab) 1 tab PO Q4H PRN PRN Reason: Pain, moderate (4-7) Stop: 03/03/18 21:14 Oxycodone/Acetaminophen (Percocet 5/325 Mg Tab) 2 tab PO Q4H PRN PRN Reason: Pain, severe (8-10) Stop: 03/03/18 21:14 Pantoprazole Sodium (Protonix Ec Tab) 40 mg PO DAILY [facility] Last Admin: 02/28/18 10:33 Dose: 40 mg Pregabalin (Lyrica) 25 mg PO HS [facility] Last Admin: 02/28/18 21:32 Dose: 25 mg Saccharomyces Boulardii (Florastor) 250 mg PO BID [facility] Stop: 03/28/18 10:00 Last Admin: 02/28/18 17:16 Dose: 250 mg - Labs Labs: 02/28/18 07:47 02/28/18 07:47 PT 10.2 SECONDS (9.7-12.2) 02/23/18 01:52 INR 0.9 02/23/18 01:52 APTT 32 SECONDS (21-34) 02/23/18 01:52
--- NOTE | 2018-02-28 23:13 | CP.PCM.PN ---
Subjective - Date & Time of Evaluation Date of Evaluation: 02/27/18 Time of Evaluation: 17:25 - Subjective Subjective: Patient seen and evaluated Denies chest pain and dyspnea Objective - Vital Signs/Intake and Output Vital Signs (last 24 hours): Temp Pulse Resp BP Pulse Ox 97.6 F 99 H 18 146/81 96 02/28/18 07:20 02/28/18 10:32 02/28/18 07:20 02/28/18 10:32 02/28/18 07:20 Intake and Output: 02/28/18 03/01/18 18:59 06:59 Intake Total 300 Balance 300 - Medications Medications: Current Medications Acetaminophen (Tylenol 325mg Tab) 650 mg PO Q6 PRN PRN Reason: Pain, Mild (1-3) Albuterol/Ipratropium (Duoneb 3 Mg/0.5 Mg (3 Ml) Ud) 3 ml INH RQ6 PRN PRN Reason: Shortness of Breath Last Admin: 02/28/18 20:31 Dose: 3 ml Dextrose (Dextrose 50% Inj) 0 ml IV STAT PRN; Protocol PRN Reason: Hypoglycemia Protocol Dextrose (Glutose 15) 0 gm PO ONCE PRN; Protocol PRN Reason: Hypoglycemia Protocol Docusate Sodium (Colace) 100 mg PO BID [facility] Last Admin: 02/28/18 17:16 Dose: 100 mg Glucagon (Glucagen Diagnostic Kit) 0 mg IM STAT PRN; Protocol PRN Reason: Hypoglycemia Protocol Heparin Sodium (Porcine) (Heparin) 5,000 units SC Q8 [facility] Last Admin: 02/28/18 21:32 Dose: 5,000 units Dextrose (Dextrose 5% In Water 1000 Ml) 1,000 mls @ 0 mls/hr IV .Q0M PRN; Protocol; Per Protocol PRN Reason: Hypoglycemia Protocol Ibuprofen (Motrin Tab) 400 mg PO Q6H PRN PRN Reason: Pain, Mild (1-3) Last Admin: 02/28/18 13:36 Dose: 400 mg Insulin Human Regular (Novolin R) 0 unit SC ACHS [facility] PRN Reason: Protocol Last Admin: 02/28/18 21:44 Dose: Not Given Losartan Potassium (Cozaar) 50 mg PO Q12H [facility] Last Admin: 02/28/18 21:32 Dose: 50 mg Ondansetron HCl (Zofran Inj) 4 mg IVP Q6H PRN PRN Reason: Nausea/Vomiting Oxycodone/Acetaminophen (Percocet 5/325 Mg Tab) 1 tab PO Q4H PRN PRN Reason: Pain, moderate (4-7) Stop: 03/03/18 21:14 Oxycodone/Acetaminophen (Percocet 5/325 Mg Tab) 2 tab PO Q4H PRN PRN Reason: Pain, severe (8-10) Stop: 03/03/18 21:14 Pantoprazole Sodium (Protonix Ec Tab) 40 mg PO DAILY [facility] Last Admin: 02/28/18 10:33 Dose: 40 mg Pregabalin (Lyrica) 25 mg PO HS [facility] Last Admin: 02/28/18 21:32 Dose: 25 mg Saccharomyces Boulardii (Florastor) 250 mg PO BID [facility] Stop: 03/28/18 10:00 Last Admin: 02/28/18 17:16 Dose: 250 mg - Labs Labs: 02/28/18 07:47 02/28/18 07:47 PT 10.2 SECONDS (9.7-12.2) 02/23/18 01:52 INR 0.9 02/23/18 01:52 APTT 32 SECONDS (21-34) 02/23/18 01:52
[2018-03-01 08:13] LABS: BASO # 0.1 K/uL (0.0-0.2); BASO % 0.5 % (0.0-2.0); EOS # 0.5 K/uL (0.0-0.7); EOS % 4.8 % (0.0-4.0); HEMOGLOBIN 9.1 g/dL (11.0-16.0); LYMPH # 0.9 K/uL (1.0-4.3); LYMPH % 9.9 % (20.0-40.0); MEAN CELL VOLUME 82.4 fL (81.0-99.0); MEAN CORPUSCULAR HEMOGLOBIN 27.6 pg (27.0-31.0); MEAN CORPUSCULAR HGB CONC 33.5 g/dL (33.0-37.0); MEAN PLATELET VOLUME 8.3 fL (7.2-11.7); MONO # 0.9 K/uL (0.0-0.8); MONO % 9.5 % (0.0-10.0); NEUT # 7.2 K/uL (1.8-7.0); NEUT % 75.3 % (50.0-75.0); PLATELET COUNT 329 K/uL (130-400); RED CELL DISTRIBUTION WIDTH 13.7 % (11.5-14.5); WHITE BLOOD COUNT 9.5 K/uL (4.8-10.8)
[2018-03-01] MEDS: (Novolin R) Insulin Human Regular 100 units/ml vial SC SCH ×4 (08:36→21:16)
[2018-03-01 08:49] LABS: ALB/GLOB RATIO 0.9 (1.0-2.1); ALBUMIN 3.4 g/dL (3.5-5.0); ALT/SGPT 34 U/L (9-52); AST/SGOT 36 U/L (14-36); BLOOD UREA NITROGEN 11 mg/dL (7-17); CALCIUM 8.7 mg/dl (8.6-10.4); GFR AFRICAN-AMERICAN > 60; GFR NON-AFRICAN AMERICAN > 60
[2018-03-01 09:00] LABS: EOSINOPHIL 2 % (0-4); LYMPHOCYTE 9 % (20-40); MONOCYTE 8 % (0-10); NEUTROPHIL 81 % (50-75); PLATELET ESTIMATE NORMAL (NORMAL); TOTAL CELLS COUNTED 100
[2018-03-01 09:01] LABS: ANISOCYTOSIS SLIGHT; HYPOCHROMIC SLIGHT; LARGE PLATELETS PRESENT; OVALOCYTES SLIGHT; POIKILOCYTOSIS SLIGHT; POLYCHROMIC SLIGHT
[2018-03-01] MEDS: Pantoprazole 40 mg EC Tab PO SCH (10:17)
[2018-03-01] MEDS: Saccharomyces Boulardi 250 mg Cap PO SCH ×2 (10:18→17:15)
--- NOTE | 2018-03-01 10:39 | CP.PCM.PN ---
Subjective - Date & Time of Evaluation Date of Evaluation: 03/01/18 Time of Evaluation: 11:00 - Subjective Subjective: Podiatry Progress Note- Dr. Sierra 77 yo female pt POD#6 ORIF R ankle fx with primary closure R ankle laceration. Pt seen at beside this AM, seen with RLE elevated at bedside chair. Reports pain is well-controlled at this time, has been compliant with NWB to the RLE. She denies N/V/F/D/C/SOB/JJ/dizziness/chest pain/calf pain. has been using incentive spirometer, does complain of persistent cough though. Objective - Vital Signs/Intake and Output Vital Signs (last 24 hours): Temp Pulse Resp BP Pulse Ox 98.0 F 92 H 18 149/79 98 03/01/18 07:45 03/01/18 07:45 03/01/18 07:45 03/01/18 07:45 03/01/18 07:45 Intake and Output: 03/01/18 03/01/18 06:59 18:59 Intake Total 200 Balance 200 - Medications Medications: Current Medications Acetaminophen (Tylenol 325mg Tab) 650 mg PO Q6 PRN PRN Reason: Pain, Mild (1-3) Albuterol/Ipratropium (Duoneb 3 Mg/0.5 Mg (3 Ml) Ud) 3 ml INH RQ6 PRN PRN Reason: Shortness of Breath Last Admin: 02/28/18 20:31 Dose: 3 ml Dextrose (Dextrose 50% Inj) 0 ml IV STAT PRN; Protocol PRN Reason: Hypoglycemia Protocol Dextrose (Glutose 15) 0 gm PO ONCE PRN; Protocol PRN Reason: Hypoglycemia Protocol Docusate Sodium (Colace) 100 mg PO BID [facility] Last Admin: 03/01/18 10:18 Dose: 100 mg Glucagon (Glucagen Diagnostic Kit) 0 mg IM STAT PRN; Protocol PRN Reason: Hypoglycemia Protocol Heparin Sodium (Porcine) (Heparin) 5,000 units SC Q8 [facility] Last Admin: 03/01/18 05:34 Dose: 5,000 units Dextrose (Dextrose 5% In Water 1000 Ml) 1,000 mls @ 0 mls/hr IV .Q0M PRN; Protocol; Per Protocol PRN Reason: Hypoglycemia Protocol Ibuprofen (Motrin Tab) 400 mg PO Q6H PRN PRN Reason: Pain, Mild (1-3) Last Admin: 03/01/18 10:30 Dose: 400 mg Insulin Human Regular (Novolin R) 0 unit SC ACHS [facility] PRN Reason: Protocol Last Admin: 03/01/18 08:36 Dose: Not Given Losartan Potassium (Cozaar) 50 mg PO Q12H [facility] Last Admin: 03/01/18 10:18 Dose: 50 mg Ondansetron HCl (Zofran Inj) 4 mg IVP Q6H PRN PRN Reason: Nausea/Vomiting Oxycodone/Acetaminophen (Percocet 5/325 Mg Tab) 1 tab PO Q4H PRN PRN Reason: Pain, moderate (4-7) Stop: 03/03/18 21:14 Oxycodone/Acetaminophen (Percocet 5/325 Mg Tab) 2 tab PO Q4H PRN PRN Reason: Pain, severe (8-10) Stop: 03/03/18 21:14 Pantoprazole Sodium (Protonix Ec Tab) 40 mg PO DAILY [facility] Last Admin: 03/01/18 10:17 Dose: 40 mg Pregabalin (Lyrica) 25 mg PO HS [facility] Last Admin: 02/28/18 21:32 Dose: 25 mg Saccharomyces Boulardii (Florastor) 250 mg PO BID [facility] Stop: 03/28/18 10:00 Last Admin: 03/01/18 10:18 Dose: 250 mg - Labs Labs: 03/01/18 08:06 03/01/18 08:06 PT 10.2 SECONDS (9.7-12.2) 02/23/18 01:52 INR 0.9 02/23/18 01:52 APTT 32 SECONDS (21-34) 02/23/18 01:52 - Constitutional Appears: Non-toxic, No Acute Distress - Extremities Exam Extremities Exam: absent: Calf Tenderness Additional comments: RLE focused physical exam: AO splint remains clean/dry/intact with no strikethrough noted Neurovascular status intact to digits x5 No pain upon calf squeeze - Neurological Exam Neurological Exam: Alert, Awake, Oriented x3 - Psychiatric Exam Psychiatric exam: Normal Affect, Normal Mood Assessment and Plan - Assessment and Plan (Free Text) Assessment: 77 yo female patient POD#6 closed reduction at bedside of R open ankle fracture , ORIF R open ankle fx, primary closure of laceration R ankle Plan: Pt S/E at the bedside d/w Dr. Sierra Afebrile, WBC WNL AO splint maintained Activity: strict NWB to RLE bedrest only, elevate RLE at all times, c/w Ice behind the knee Pain control per primary team Encourage use of incentive spirometer 10x every hour Dispo: Pending auth for discharge to [facility]) Stable per podiatry for discharge to [facility] Pt is to f/u with Dr. Sierra at [facility] [place] [facility] as outpatient will follow
--- NOTE | 2018-03-01 13:06 | PN ---
DATE: LOCATION: [facility], bed B. SUBJECTIVE: This is a 77-year-old female seen and examined in rounds without significant clinical changes or reported active bleeding, still has intermittent period of complaint of rectal pain and discomfort as well as right lower extremity pain. The patient denied any actual chest pain, palpitation or significant shortness of breath, but urine incontinence. The entire chart is reviewed including, but not limited to the most recent lab and radiology study results, current and previous medication list, current and the previous medical events. Today's lab showed hemoglobin of 9.1 with hematocrit of 27.2 with normal platelet count but low BUN of 6. Blood glucose level 187, alkaline phosphatase 149, albumin 3.4. PHYSICAL EXAMINATION: GENERAL: A 77-year-old female, awake, alert, and oriented. VITAL SIGNS: Afebrile with pulse of 90, respiratory rate of 20 to 22, blood pressure 142/76. HEENT: Showed pale, dry, oral mucous membranes. Nonicteric sclerae. LUNGS: Few scattered crepitation. Decreased air entry at bases. HEART: Positive S1 and S2 with increased rate. ABDOMEN: Soft with mild generalized tenderness. No mass or organomegaly. No rebound tenderness or guarding. EXTREMITIES: With right lower extremity soft cast. IMPRESSION: 1. Status post right ankle, fibular fracture, with closed reduction. 2. Anemia, to rule out gastrointestinal block, upper versus lower versus anemia secondary to chronic disease. 3. Known history of hypertension, poorly controlled diabetes mellitus. 4. Reported history of aortic stenosis, with pulmonary hypertension. 5. Anal fissure, internal hemorrhoids by recent history; however, the patient denied any evidence of active bleeding in the meantime. 6. Known history of lumbar spinal stenosis. SUGGESTIONS: 1. Continue current management. 2. Follow up cancer markers. 3. Guaiac all the stools every other day x3. 4. Carafate liquid p.o. 5. Again endoscopic evaluation of GI tract only when the patient is more stable clinically. Alondra Harper MD
[2018-03-01] MEDS: guaiFENesin DM 100 mg-10 mg/5 ml UD PO PRN (13:25)
[2018-03-01] MEDS ORDERED: Tramadol 25 mg PO ONE (14:55)
--- NOTE | 2018-03-01 14:58 | CP.PCM.PN ---
Subjective - Date & Time of Evaluation Date of Evaluation: 03/01/18 Time of Evaluation: 08:15 - Subjective Subjective: Medicine progress note ( Dr. Donaldson's service) Patient was seen and examined at bedside. Patient reports moderate pain and admits to non-productive cough. Patient denies chest pain, palpitations, fever, chills, nausea, vomiting. Patient has been out of bed to chair with assistance and has been utilizing the incentive spirometer as instructed. Objective - Vital Signs/Intake and Output Vital Signs (last 24 hours): Temp Pulse Resp BP Pulse Ox 98.0 F 90 18 162/68 H 98 03/01/18 07:45 03/01/18 10:19 03/01/18 07:45 03/01/18 10:19 03/01/18 07:45 Intake and Output: 03/01/18 03/01/18 06:59 18:59 Intake Total 200 Balance 200 - Medications Medications: Current Medications Acetaminophen (Tylenol 325mg Tab) 650 mg PO Q6 PRN PRN Reason: Pain, Mild (1-3) Albuterol/Ipratropium (Duoneb 3 Mg/0.5 Mg (3 Ml) Ud) 3 ml INH RQ6 PRN PRN Reason: Shortness of Breath Last Admin: 02/28/18 20:31 Dose: 3 ml Dextrose (Dextrose 50% Inj) 0 ml IV STAT PRN; Protocol PRN Reason: Hypoglycemia Protocol Dextrose (Glutose 15) 0 gm PO ONCE PRN; Protocol PRN Reason: Hypoglycemia Protocol Docusate Sodium (Colace) 100 mg PO BID [facility] Last Admin: 03/01/18 10:18 Dose: 100 mg Glucagon (Glucagen Diagnostic Kit) 0 mg IM STAT PRN; Protocol PRN Reason: Hypoglycemia Protocol Guaifenesin/Dextromethorphan (Robitussin Dm) 5 ml PO Q4H PRN PRN Reason: Cough Last Admin: 03/01/18 13:25 Dose: 5 ml Heparin Sodium (Porcine) (Heparin) 5,000 units SC Q8 [facility] Last Admin: 03/01/18 13:25 Dose: Not Given Dextrose (Dextrose 5% In Water 1000 Ml) 1,000 mls @ 0 mls/hr IV .Q0M PRN; Protocol; Per Protocol PRN Reason: Hypoglycemia Protocol Ibuprofen (Motrin Tab) 400 mg PO Q6H PRN PRN Reason: Pain, Mild (1-3) Last Admin: 03/01/18 10:30 Dose: 400 mg Insulin Human Regular (Novolin R) 0 unit SC ACHS [facility] PRN Reason: Protocol Last Admin: 03/01/18 11:30 Dose: Not Given Losartan Potassium (Cozaar) 50 mg PO Q12H [facility] Last Admin: 03/01/18 10:18 Dose: 50 mg Ondansetron HCl (Zofran Inj) 4 mg IVP Q6H PRN PRN Reason: Nausea/Vomiting Oxybutynin Chloride (Ditropan Tab) 5 mg PO TID [facility] Last Admin: 03/01/18 13:26 Dose: 5 mg Oxycodone/Acetaminophen (Percocet 5/325 Mg Tab) 1 tab PO Q4H PRN PRN Reason: Pain, moderate (4-7) Stop: 03/03/18 21:14 Oxycodone/Acetaminophen (Percocet 5/325 Mg Tab) 2 tab PO Q4H PRN PRN Reason: Pain, severe (8-10) Stop: 03/03/18 21:14 Pantoprazole Sodium (Protonix Ec Tab) 40 mg PO DAILY [facility] Last Admin: 03/01/18 10:17 Dose: 40 mg Pregabalin (Lyrica) 25 mg PO HS [facility] Last Admin: 02/28/18 21:32 Dose: 25 mg Saccharomyces Boulardii (Florastor) 250 mg PO BID [facility] Stop: 03/28/18 10:00 Last Admin: 03/01/18 10:18 Dose: 250 mg - Labs Labs: 03/01/18 08:06 03/01/18 08:06 PT 10.2 SECONDS (9.7-12.2) 02/23/18 01:52 INR 0.9 02/23/18 01:52 APTT 32 SECONDS (21-34) 02/23/18 01:52 - Constitutional Appears: No Acute Distress - Head Exam Head Exam: ATRAUMATIC, NORMAL INSPECTION - Eye Exam Eye Exam: EOMI - ENT Exam ENT Exam: Mucous Membranes Moist - Respiratory Exam Respiratory Exam: NORMAL BREATHING PATTERN Additional comments: Very mild wheezing - Cardiovascular Exam Cardiovascular Exam: REGULAR RHYTHM, +S1, +S2, Murmur - GI/Abdominal Exam GI & Abdominal Exam: Soft, Normal Bowel Sounds. absent: Guarding, Rigid, Tenderness - Extremities Exam Additional comments: s/p ORIF R ankle fx with primary closure R ankle laceration. Dressing intact, clean and dry - Neurological Exam Neurological Exam: Alert, Awake, Oriented x3 - Psychiatric Exam Psychiatric exam: Anxious - Skin Skin Exam: Normal Color Assessment and Plan (1) Open fracture of right ankle Assessment & Plan: Ortho Consult: Dr. Solorio --> help appreciated Infectious Disease consult, Dr Campbell Podiatry consult, Dr Sierra * s/p closed reduction with podiatry afternoon 02/23/18, DPM Dr. Willard * s/p 1.) ORIF of right ankle fibular fracture and syndesmotic injury. 2.) Irrigation and debridement of right ankle open fracture wound with primary closure. Performed evening 02/23/[address] Sierra. Keep right leg elevated Non weight bearing to right leg Ice to right leg Imaging: Ankle XRAY: Fractures of the distal right tibia and fibula with associated subluxation Lower extremity CT: Acute fractures of distal fibula and posterior malleolus of distal tibia. Disruption of ankle mortise with medial widening. Additional fractures as described in full report. Chest XRAY: No active disease Lower extremity CT: Acute fractures of distal fibula and posterior malleolus of distal tibia. Disruption of ankle mortise with medial widening. Additional fractures as described in full report. Meds: * All antibiotics discontinued 02/27/18 * Florastor 250mg PO BID * Motrin 400mg PO Q6H PRN, Percocet 1 tab PO Q4H PRN and 2 tabs PO Q4H PRN ( As per pain scale) * Colace 100mg PO BID Status: Acute (2) Diabetes mellitus Assessment & Plan: HgbA1C (02/23/18): 6.9 ISS- Low dose Accuchecks Hypoglycemia protocol Status: Acute (3) Hypertension Assessment & Plan: Cozaar 50mg PO Q12H Status: Acute (4) Aortic stenosis Assessment & Plan: Associated with pulmonary hypertension Consult: Renewals Manager, Dr. Wu---> Help appreciated Imaging: * ECHO (12/02/2016): left ventricular ejection fraction within the normal range. Moderate valvular aortic stenosis. Mild to moderate tricuspid regurgitation. * ECHO 02/24/18: EF 60%, Grade II pseudonormal filling dynamics, LA pressure mildly elevated, LA mildly dilated, AV appears trileaflet and calcified, mitral annular calcification is mild to moderate, mitral regurgitation is mild, tricuspid regurgitation is mild, no pulmonary hypertension Medications: * Duonebs 3ML INH RQ6 PRN for shortness of breath * Robitussin DM 5ml PO Q4H PRN for cough Status: Acute (5) Neuropathy of both feet Assessment & Plan: Possibly do to sequela of spinal surgery * Lyrica 25mg PO HS Status: Acute (6) Urinary incontinence Assessment & Plan: secondary to sequela of spinal surgery Continue home medications: * Oxybutynin 5mg PO TID Status: Acute (7) History of anal fissures Assessment & Plan: GI consulted, Dr Dennison * Patient may need colonoscopy when she is more stable clinically Stool occult performed 02/24/18 which was NEGATIVE No gross blood seen on rectal. Discoloration 3 inches lateral to anus on right could have been site of previous fissure. No evidence of fissure seen. No abnormal masses palpated. Skin tag inferior to right gluteal fold. CEA, CA 125 both NEGATIVE Status: Acute (8) Spinal stenosis at L4-L5 level Assessment & Plan: s/p spinal surgery 2018 Status: Acute (9) Prophylactic measure Assessment & Plan: Protonix 40mg PO daily Heparin 5,000 units SC Q8H Disposition: As per weekend team (02/27-02/28), Patient will need to have sutures removed 2-3 weeks after surgery 02/23/[address] Sierra on 03/08/18 . * As per PMD - wants patient to follow up with Neurology Dr. Domenic Sharma for her urinary incontinence s/p lumbar surgery [phone]. As per discussion with bilingual social worker, awaiting authorization for placement to [facility] All plans reviewed and discussed with attending, Dr. Donaldson Status: Acute
[2018-03-01 16:04] VITALS: RESP 20
[2018-03-01] MEDS: Albuterol-Ipratrop 3 mg / 0.5 (3 ml) UD INH PRN (21:41)
--- NOTE | 2018-03-01 23:38 | CP.PCM.PN ---
Subjective - Date & Time of Evaluation Date of Evaluation: 03/01/18 Time of Evaluation: 18:05 - Subjective Subjective: Patient seen and evaluated Comfortable Denies chest pain and dyspnea Objective - Vital Signs/Intake and Output Vital Signs (last 24 hours): Temp Pulse Resp BP Pulse Ox 98.2 F 83 20 145/81 97 03/01/18 16:00 03/01/18 16:00 03/01/18 16:00 03/01/18 16:00 03/01/18 16:00 Intake and Output: 03/01/18 03/02/18 18:59 06:59 Intake Total 610 Output Total 1 Balance 610 -1 - Medications Medications: Current Medications Acetaminophen (Tylenol 325mg Tab) 650 mg PO Q6 PRN PRN Reason: Pain, Mild (1-3) Albuterol/Ipratropium (Duoneb 3 Mg/0.5 Mg (3 Ml) Ud) 3 ml INH RQ6 PRN PRN Reason: Shortness of Breath Last Admin: 03/01/18 21:41 Dose: 3 ml Dextrose (Dextrose 50% Inj) 0 ml IV STAT PRN; Protocol PRN Reason: Hypoglycemia Protocol Dextrose (Glutose 15) 0 gm PO ONCE PRN; Protocol PRN Reason: Hypoglycemia Protocol Docusate Sodium (Colace) 100 mg PO BID [facility] Last Admin: 03/01/18 17:15 Dose: 100 mg Glucagon (Glucagen Diagnostic Kit) 0 mg IM STAT PRN; Protocol PRN Reason: Hypoglycemia Protocol Guaifenesin/Dextromethorphan (Robitussin Dm) 5 ml PO Q4H PRN PRN Reason: Cough Last Admin: 03/01/18 13:25 Dose: 5 ml Heparin Sodium (Porcine) (Heparin) 5,000 units SC Q8 [facility] Last Admin: 03/01/18 21:36 Dose: Not Given Dextrose (Dextrose 5% In Water 1000 Ml) 1,000 mls @ 0 mls/hr IV .Q0M PRN; Protocol; Per Protocol PRN Reason: Hypoglycemia Protocol Ibuprofen (Motrin Tab) 400 mg PO Q6H PRN PRN Reason: Pain, Mild (1-3) Last Admin: 03/01/18 10:30 Dose: 400 mg Insulin Human Regular (Novolin R) 0 unit SC ACHS [facility] PRN Reason: Protocol Last Admin: 04/09/18 21:16 Dose: Not Given Losartan Potassium (Cozaar) 50 mg PO Q12H [facility] Last Admin: 03/01/18 21:36 Dose: Not Given Ondansetron HCl (Zofran Inj) 4 mg IVP Q6H PRN PRN Reason: Nausea/Vomiting Oxybutynin Chloride (Ditropan Tab) 5 mg PO TID [facility] Last Admin: 03/01/18 17:15 Dose: 5 mg Oxycodone/Acetaminophen (Percocet 5/325 Mg Tab) 1 tab PO Q4H PRN PRN Reason: Pain, moderate (4-7) Stop: 03/03/18 21:14 Oxycodone/Acetaminophen (Percocet 5/325 Mg Tab) 2 tab PO Q4H PRN PRN Reason: Pain, severe (8-10) Stop: 03/03/18 21:14 Pantoprazole Sodium (Protonix Ec Tab) 40 mg PO DAILY [facility] Last Admin: 03/01/18 10:17 Dose: 40 mg Pregabalin (Lyrica) 25 mg PO HS [facility] Last Admin: 03/01/18 21:37 Dose: Not Given Saccharomyces Boulardii (Florastor) 250 mg PO BID [facility] Stop: 03/28/18 10:00 Last Admin: 03/01/18 17:15 Dose: 250 mg - Labs Labs: 03/01/18 08:06 03/01/18 08:06 PT 10.2 SECONDS (9.7-12.2) 02/23/18 01:52 INR 0.9 02/23/18 01:52 APTT 32 SECONDS (21-34) 02/23/18 01:52
[2018-03-02] MEDS: Albuterol-Ipratrop 3 mg / 0.5 (3 ml) UD INH PRN (02:42)
[2018-03-02] MEDS: guaiFENesin DM 100 mg-10 mg/5 ml UD PO PRN (06:00)
[2018-03-02 08:14] VITALS: PULSE 86
[2018-03-02] MEDS: (Novolin R) Insulin Human Regular 100 units/ml vial SC SCH ×3 (08:51→18:08)
[2018-03-02] MEDS: Pantoprazole 40 mg EC Tab PO SCH (09:27)
[2018-03-02] MEDS: Saccharomyces Boulardi 250 mg Cap PO SCH ×2 (09:27→18:06)
[2018-03-02] MEDS ORDERED: Sucralfate 1 gm/10 ml Oral Susp UD PO SCH (10:15)
--- NOTE | 2018-03-02 14:25 | CP.PCM.PN ---
Subjective - Date & Time of Evaluation Date of Evaluation: 03/02/18 Time of Evaluation: 07:00 Objective - Vital Signs/Intake and Output Vital Signs (last 24 hours): Temp Pulse Resp BP Pulse Ox 97.9 F 86 20 168/89 H 97 03/02/18 07:45 03/02/18 07:45 03/02/18 07:45 03/02/18 07:45 03/02/18 07:45 Intake and Output: 03/02/18 03/02/18 06:59 18:59 Intake Total 120 Output Total 1 Balance 119 - Medications Medications: Current Medications Acetaminophen (Tylenol 325mg Tab) 650 mg PO Q6 PRN PRN Reason: Pain, Mild (1-3) Albuterol/Ipratropium (Duoneb 3 Mg/0.5 Mg (3 Ml) Ud) 3 ml INH RQ6 PRN PRN Reason: Shortness of Breath Last Admin: 03/02/18 02:42 Dose: 3 ml Dextrose (Dextrose 50% Inj) 0 ml IV STAT PRN; Protocol PRN Reason: Hypoglycemia Protocol Dextrose (Glutose 15) 0 gm PO ONCE PRN; Protocol PRN Reason: Hypoglycemia Protocol Docusate Sodium (Colace) 100 mg PO BID [facility] Last Admin: 03/02/18 09:26 Dose: 100 mg Glucagon (Glucagen Diagnostic Kit) 0 mg IM STAT PRN; Protocol PRN Reason: Hypoglycemia Protocol Guaifenesin/Dextromethorphan (Robitussin Dm) 5 ml PO Q4H PRN PRN Reason: Cough Last Admin: 03/02/18 06:00 Dose: 5 ml Heparin Sodium (Porcine) (Heparin) 5,000 units SC Q8 [facility] Last Admin: 03/02/18 06:01 Dose: Not Given Dextrose (Dextrose 5% In Water 1000 Ml) 1,000 mls @ 0 mls/hr IV .Q0M PRN; Protocol; Per Protocol PRN Reason: Hypoglycemia Protocol Ibuprofen (Motrin Tab) 400 mg PO Q6H PRN PRN Reason: Pain, Mild (1-3) Last Admin: 03/01/18 10:30 Dose: 400 mg Insulin Human Regular (Novolin R) 0 unit SC ACHS [facility] PRN Reason: Protocol Last Admin: 03/02/18 08:51 Dose: Not Given Losartan Potassium (Cozaar) 50 mg PO Q12H [facility] Last Admin: 03/02/18 09:26 Dose: 50 mg Ondansetron HCl (Zofran Inj) 4 mg IVP Q6H PRN PRN Reason: Nausea/Vomiting Oxybutynin Chloride (Ditropan Tab) 5 mg PO TID [facility] Last Admin: 03/02/18 09:26 Dose: 5 mg Oxycodone/Acetaminophen (Percocet 5/325 Mg Tab) 1 tab PO Q4H PRN PRN Reason: Pain, moderate (4-7) Stop: 03/03/18 21:14 Oxycodone/Acetaminophen (Percocet 5/325 Mg Tab) 2 tab PO Q4H PRN PRN Reason: Pain, severe (8-10) Stop: 03/03/18 21:14 Pantoprazole Sodium (Protonix Ec Tab) 40 mg PO DAILY [facility] Last Admin: 03/02/18 09:27 Dose: 40 mg Pregabalin (Lyrica) 25 mg PO HS [facility] Last Admin: 03/01/18 21:37 Dose: Not Given Saccharomyces Boulardii (Florastor) 250 mg PO BID [facility] Stop: 03/28/18 10:00 Last Admin: 03/02/18 09:27 Dose: 250 mg Sucralfate (Carafate Oral Susp) 1 gm PO DAILY [facility] Last Admin: 03/02/18 12:09 Dose: Not Given Tramadol HCl (Ultram) 50 mg PO TID PRN PRN Reason: Pain, severe (8-10) - Labs Labs: 03/01/18 08:06 03/01/18 08:06 PT 10.2 SECONDS (9.7-12.2) 02/23/18 01:52 INR 0.9 02/23/18 01:52 APTT 32 SECONDS (21-34) 02/23/18 01:52 Assessment and Plan (1) Open fracture of right ankle Status: Acute (2) Diabetes mellitus Status: Acute (3) Hypertension Status: Acute (4) Aortic stenosis Status: Acute (5) Neuropathy of both feet Status: Acute (6) Urinary incontinence Status: Acute (7) History of anal fissures Status: Acute (8) Spinal stenosis at L4-L5 level Status: Acute (9) Prophylactic measure Status: Acute
--- NOTE | 2018-03-02 14:25 | CP.PCM.DIS ---
Provider - Provider Date of Admission: 02/23/18 05:44 Attending physician: Dion Sierra MD Time Spent in preparation of Discharge (in minutes): 35 Diagnosis - Discharge Diagnosis (1) Open fracture of right ankle Status: Acute (2) Diabetes mellitus Status: Chronic (3) Hypertension Status: Chronic (4) Aortic stenosis Status: Chronic (5) Neuropathy of both feet Status: Chronic (6) Urinary incontinence Status: Chronic (7) History of anal fissures Status: Chronic (8) Spinal stenosis at L4-L5 level Status: Chronic (9) Prophylactic measure Status: Acute Hospital Course - Lab Results Lab Results: Most Recent Lab Values WBC 9.5 K/uL (4.8-10.8) 03/01/18 08:06 RBC 3.30 Mil/uL (3.80-5.20) L 03/01/18 08:06 Hgb 9.1 g/dL (11.0-16.0) L 03/01/18 08:06 Hct 27.2 % (34.0-47.0) L 03/01/18 08:06 MCV 82.4 fL (81.0-99.0) 03/01/18 08:06 MCH 27.6 pg (27.0-31.0) 03/01/18 08:06 MCHC 33.5 g/dL (33.0-37.0) 03/01/18 08:06 RDW 13.7 % (11.5-14.5) 03/01/18 08:06 Plt Count 329 K/uL (130-400) 03/01/18 08:06 MPV 8.3 fL (7.2-11.7) 03/01/18 08:06 Neut % (Auto) 75.3 % (50.0-75.0) H 03/01/18 08:06 Lymph % (Auto) 9.9 % (20.0-40.0) L 03/01/18 08:06 Mora % (Auto) 9.5 % (0.0-10.0) 03/01/18 08:06 Eos % (Auto) 4.8 % (0.0-4.0) H 03/01/18 08:06 Baso % (Auto) 0.5 % (0.0-2.0) 03/01/18 08:06 Neut # (Auto) 7.2 K/uL (1.8-7.0) H 03/01/18 08:06 Lymph # (Auto) 0.9 K/uL (1.0-4.3) L 03/01/18 08:06 Mora # (Auto) 0.9 K/uL (0.0-0.8) H 03/01/18 08:06 Eos # (Auto) 0.5 K/uL (0.0-0.7) 03/01/18 08:06 Baso # (Auto) 0.1 K/uL (0.0-0.2) 03/01/18 08:06 Neutrophils % (Manual) 81 % (50-75) H 03/01/18 08:06 Band Neutrophils % 1 % (0-2) 02/28/18 07:47 Lymphocytes % (Manual) 9 % (20-40) L 03/01/18 08:06 Monocytes % (Manual) 8 % (0-10) 03/01/18 08:06 Eosinophils % (Manual) 2 % (0-4) 03/01/18 08:06 Basophils % (Manual) 1 % (0-2) 02/28/18 07:47 Toxic Granulation Present 02/28/18 07:47 Platelet Estimate Normal (NORMAL) 03/01/18 08:06 Large Platelets Present 03/01/18 08:06 Giant Platelets Present 02/28/18 07:47 Polychromasia Slight 03/01/18 08:06 Hypochromasia (manual) Slight 03/01/18 08:06 Poikilocytosis (manual Slight 03/01/18 08:06 Anisocytosis (manual) Slight 03/01/18 08:06 Ovalocytes Slight 03/01/18 08:06 PT 10.2 SECONDS (9.7-12.2) 02/23/18 01:52 INR 0.9 02/23/18 01:52 APTT 32 SECONDS (21-34) 02/23/18 01:52 Sodium 138 mmol/L (132-148) 03/01/18 08:06 Potassium 4.6 mmol/L (3.6-5.2) 03/01/18 08:06 Chloride 99 mmol/L (98-107) 03/01/18 08:06 Carbon Dioxide 28 mmol/L (22-30) 03/01/18 08:06 Anion Gap 15 (10-20) 03/01/18 08:06 BUN 11 mg/dL (7-17) 03/01/18 08:06 Creatinine 0.6 mg/dL (0.7-1.2) L 03/01/18 08:06 Est GFR ( Amer) > 60 03/01/18 08:06 Est GFR (Non-Af Amer) > 60 03/01/18 08:06 POC Glucose (mg/dL) 168 mg/dL (65-110) H 03/02/18 11:15 Random Glucose 187 mg/dL (65-105) H 03/01/18 08:06 Hemoglobin A1c 6.9 % (4.2-6.5) H 02/23/18 10:08 Calcium 8.7 mg/dl (8.6-10.4) 03/01/18 08:06 Phosphorus 3.5 mg/dL (2.5-4.5) 02/27/18 07:00 Magnesium 2.0 mg/dL (1.6-2.3) 02/27/18 07:00 Total Bilirubin 0.7 mg/dL (0.2-1.3) 03/01/18 08:06 AST 36 U/L (14-36) 03/01/18 08:06 ALT 34 U/L (9-52) 03/01/18 08:06 Alkaline Phosphatase 149 U/L (38-126) H 03/01/18 08:06 Total Protein 7.2 g/dL (6.3-8.3) 03/01/18 08:06 Albumin 3.4 g/dL (3.5-5.0) L 03/01/18 08:06 Globulin 3.8 gm/dL (2.2-3.9) 03/01/18 08:06 Albumin/Globulin Ratio 0.9 (1.0-2.1) L 03/01/18 08:06 Triglycerides 109 mg/dL (0-149) D 02/23/18 02:00 Cholesterol 162 mg/dL (0-199) 02/23/18 02:00 LDL Cholesterol Direct 84 mg/dL (0-129) 02/23/18 02:00 HDL Cholesterol 51 mg/dL (30-70) 02/23/18 02:00 Carcinoembryonic Ag 0.7 ng/mL (0-3.0) 02/27/18 07:00 CA 125 Antigen < 5.5 U/mL (0-35) 02/27/18 07:00 Vancomycin Trough 15.7 ug/mL (5.0-10.0) H 02/26/18 07:46 Blood Type O POSITIVE 02/23/18 02:00 Antibody Screen Negative 02/23/18 02:00 - Hospital Course Hospital Course: HPI ( As per admission): 77 year old female with past medical history of HTN, aortic stenosis, DM, spinal stenosis presents to the ER s/p fall. Patient states she was getting out of the bathroom when she slipped and fell onto her ankle. She states she saw blood everywhere and use her life alert to call for help. Patient currently denies chest pain, shortness of breath, chills, abdominal pain, nausea , or vomiting. Patient states she recently had spinal surgery which has not helped her back pain and she states due to the surgery she is currently incontinent at night. Hospital course: Patient was admitted for Open right ankle fracture. Consultation was placed for orthopedics, Dr. Solorio, Podiatry, Dr. Sierra and Infectious disease, Dr. Campbell. Patient had a closed reduction with podiatry team on 02/23/18 and was subsequently scheduled for surgical intervention with Dr. Sierra on 02/24/18; ORIF of right ankle fibular fracture and syndesmotic injury and Irrigation and debridement of right ankle open fracture wound with primary closure. Prior to surgery, Director General, Dr. Wu was consulted for medical clearance due patient risk of cardiac event intraoperative. Patient tolerated procedure well with no acute issues. Over the course of hospitalization, patient was monitored closely by podiatry team and chronic illnesses was managed appropriately by the medical team. Post-procedure, patient received physical and occupational therapy. Patient remained stable over the course of hospitalization with no acute events. Patient was deemed stable by podiatry team, with recommendation for MIC. Patient was discharge to [facility] with appropriate discharge instruction and medications. Pertinent imaging: Right ankle X-ray (02/23/18): Fractures of the distal right tibia and fibula of with associated subluxation Right ankle X-ray (02/23/18): No appreciable change status post close reduction of bimalleolar fracture subluxation. In part this may be technical. Right ankle X-ray (02/24/18): Interval ORIF of distal fibular fracture. Lower extremity CT (02/23/18): Acute fractures of the distal fibula and posterior malleolus of the distal tibia as described above. Disruption of the ankle mortise with medial widening noted. Intraarticular fracture deformities of the 2nd and 3rd metatarsal bones proximally with a suggestion of extension and possible tearing of the Lisfranc ligament/joint. Fracture of the 4th metatarsal bone proximally. Diffuse soft tissue air, most likely secondary to an underlying soft tissue laceration. Open fracture not excluded. ECHO 02/24/18: EF 60%, Grade II pseudonormal filling dynamics, LA pressure mildly elevated, LA mildly dilated, AV appears trileaflet and calcified, mitral annular calcification is mild to moderate, mitral regurgitation is mild, tricuspid regurgitation is mild, no pulmonary hypertension This is a brief summary of events. For a complete course, please refer to the medical records Discharge Exam - Head Exam Head Exam: ATRAUMATIC, NORMAL INSPECTION - Eye Exam Eye Exam: EOMI - ENT Exam ENT Exam: Mucous Membranes Moist - Respiratory Exam Respiratory Exam: NORMAL BREATHING PATTERN - Cardiovascular Exam Cardiovascular Exam: REGULAR RHYTHM, +S1, +S2, Systolic Murmur - GI/Abdominal Exam GI & Abdominal Exam: Normal Bowel Sounds, Soft. absent: Tenderness - Extremities Exam Additional comments: s/p ORIF R ankle fx with primary closure R ankle laceration. Dressing intact, clean and dry - Neurological Exam Neurological exam: Alert, Oriented x3 - Psychiatric Exam Psychiatric exam: Anxious - Skin Skin Exam: Normal Color Discharge Plan - Discharge Medications Prescriptions: Heparin 5,000 units SC Q8 28 Days vial - Follow Up Plan Condition: STABLE Disposition: HOME/ ROUTINE Instructions: Heart Failure, Adult (DC), High Blood Pressure (DC), Ankle Fracture (DC), Open Reduction and Internal Fixation Surgery (DC), Managing Pain After Surgery, Urinary Incontinence (GEN) Additional Instructions: Please discharge patient to [facility] Please resume all home medications as prescribed by your primary care physician Patient will need anticoagulation for VTE prophylaxis for 35 days S/P ORIF of Right Ankle Fracture 02/23/18, therefore, ending anticoagulation therapy on . She is currently on Heparin 5,000 Units SC Q8H. This can be changed to Lovenox once she goes home from [facility] if she is able to administer it herself. If not then she will have to continue Aspirin 81 mg PO 2x/day until 03/30. Patient will also likely need home visiting nurse which should be arranged through [facility] upon her discharge there. Need to follow-up with Senior Property Accountant, Dr Sierra on Mondays - [facility] will be able to provide transportation. Stitches will need to be removed 2-3 weeks post- op - surgery was on 02/23/18 at [facility] [place] podiatry clinic located in that [facility], As per PMD - wants patient to follow up with Neurology Dr. Domenic Sharma for her urinary incontinence s/p lumbar surgery [phone]. As per podiatry: AO splint maintained Activity: strict NWB to RLE bedrest only, elevate RLE at all times, c/w Ice behind the knee. Patient should out of bed to chair and should receive physical therapy and occupational therapy Referrals: Lucrecia Sierra DPM [Staff Provider] -
[2018-03-02 15:50] VITALS: BP 155/70; TEMP 98; O2SAT 100
--- NOTE | 2018-03-02 18:23 | PN ---
DATE: LOCATION: [facility], bed B. SUBJECTIVE: This is a 77-years old female seen and examined in rounds without significant clinical changes or reported active bleeding with complaint again of left lower extremities pain on and off with mild rectal discomfort and pain with nonproductive cough and of no reported active bleeding, chills or fever, but less appetite and less oral intake. The entire chart is reviewed including, but not limited to the most recent lab and radiology study results, current and the previous medication list, current and the previous medical events. Today's lab is still pending, but blood glucose level of 168. The patient is still having low hemoglobin and hematocrit, but no reported active bleeding. PHYSICAL EXAMINATION: GENERAL: A 77-year-old female, awake, alert, afebrile, with pulse of 88, respiratory rate of 20 to 22, blood pressure of 158/78. HEENT: Showed pale dry, oral mucous membranes. Nonicteric sclerae. LUNGS: Few scattered crepitations. Decreased air entry at bases. HEART: Positive S1 and S2. ABDOMEN: Soft with slight generalized tenderness and mild distention. No mass or organomegaly. No rebound tenderness or guarding. EXTREMITIES: Without significant clubbing or cyanosis, but mild lower extremity edematous changes especially at the right side covered with clean casting. NEUROLOGIC: No reported new neurological deficits, sensory or motor. IMPRESSION: 1. Anemia, to rule out gastrointestinal blood loss, upper versus lower. 2. Status post right ankle and fibular fracture treated surgically with closed reduction. 3. Known history of poorly controlled diabetes mellitus. 4. Known history of hypertension, aortic stenosis, pulmonary hypertension. 5. Anal fissure with internal hemorrhoids. 6. Known history of lumbar spinal stenosis. SUGGESTIONS: 1. Continue current management. 2. Guaiac all the stools daily x3. 3. Endoscopic evaluation of the GI tract when the patient is more stable clinically. Alondra Harper MD
== END 2018-03-02 18:56 | DRG 494 ==
LOC: C.ER 01:32 → C.9E 05:44 → C.6T 06:14 → C.9E 06:14
PROVIDERS: ADMIT Family Medicine; ATTEND Family Medicine
PROC: 0YQK0ZZ Repair Right Ankle Region, Open Approach (ICD-10-PCS; 2018-02-23)
PROC: 0QSJ04Z Reposition Right Fibula with Internal Fixation Device, Open Approach (ICD-10-PCS; principal; 2018-02-23 19:15)
DX: S82.61XB Displaced fracture of lateral malleolus of right fibula, initial encounter for open fracture type I or II (principal); W01.0XXA Fall on same level from slipping, tripping and stumbling without subsequent striking against object, initial encounter; D72.829 Elevated white blood cell count, unspecified; E11.40 Type 2 diabetes mellitus with diabetic neuropathy, unspecified; M48.061 Spinal stenosis, lumbar region without neurogenic claudication; M54.16 Radiculopathy, lumbar region; R32 Unspecified urinary incontinence; S91.011A Laceration without foreign body, right ankle, initial encounter; S93.431A Sprain of tibiofibular ligament of right ankle, initial encounter; I50.9 Heart failure, unspecified; S92.341A Displaced fracture of fourth metatarsal bone, right foot, initial encounter for closed fracture; S92.331A Displaced fracture of third metatarsal bone, right foot, initial encounter for closed fracture; M48.00 Spinal stenosis, site unspecified; I27.20 Pulmonary hypertension, unspecified; D63.8 Anemia in other chronic diseases classified elsewhere; I35.0 Nonrheumatic aortic (valve) stenosis; G89.29 Other chronic pain; I11.0 Hypertensive heart disease with heart failure; I25.10 Atherosclerotic heart disease of native coronary artery without angina pectoris; Z79.899 Other long term (current) drug therapy; Y92.012 Bathroom of single-family (private) house as the place of occurrence of the external cause; Z87.11 Personal history of peptic ulcer disease

== ENCOUNTER 2018-05-18 11:13 | Day surgery (SDC) | payer MEDICARE, OTHER | END 2018-05-18 14:38 | disposition home or self-care (01) | LOC: C.SDS 11:13 | PROVIDERS: ATTEND Urology | DX: R33.9 Retention of urine, unspecified (principal); R31.29 Other microscopic hematuria; Z53.09 Procedure and treatment not carried out because of other contraindication | CPT/HCPCS: 52000; 82948; LWBS0 ==